=== PATIENT | female | born 2000 | race Caucasian/White ===

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

== ENCOUNTER 2019-01-11 04:50 | Emergency (ER) | payer OTHER ==
[~2019-01-11] VITALS: Ht 167.6 cm; Wt 56.5 kg
[2019-01-11 07:51] LABS: HEMATOCRIT 42.2 % (36.0-47.0); HEMOGLOBIN 14.6 g/dl (12.0-15.5); MEAN CORPUSCULAR HEMOGLOBIN 31.5 pg (27.0-33.0); MEAN CORPUSCULAR HGB CONC 34.6 g/dl (32.0-36.5); MEAN CORPUSCULAR VOLUME 91.1 fl (80.0-96.0); PLATELET COUNT, AUTOMATED 322 10^3/uL (150-450); RED BLOOD COUNT 4.63 10^6/uL (4.00-5.40); WHITE BLOOD COUNT 8.2 10^3/uL (4.0-10.0)
[2019-01-11 08:26] LABS: ACETAMINOPHEN LEVEL < 2.0 UG/ML (10.0-30.0); ALBUMIN 3.7 GM/DL (3.2-5.2); ALT/SGPT 90 U/L (12-78); BILIRUBIN,DIRECT < 0.1 MG/DL (0.0-0.2); BILIRUBIN,TOTAL 0.2 MG/DL (0.2-1.0); BLOOD UREA NITROGEN 7 MG/DL (7-18); CALCIUM LEVEL 8.3 MG/DL (8.5-10.1); CARBON DIOXIDE LEVEL 21 MEQ/L (21-32); CHLORIDE LEVEL 115 MEQ/L (98-107); CREATININE FOR GFR 0.58 MG/DL (0.55-1.30); ETHYL ALCOHOL (ETHANOL) 0.256 % (0.000-0.010); GLUCOSE, FASTING 97 MG/DL (70-100); POTASSIUM SERUM 3.8 MEQ/L (3.5-5.1); SALICYLATE LEVEL < 1.7 MG/DL (5.0-30.0); SODIUM LEVEL 146 MEQ/L (136-145); THYROID STIMULATING HORMONE 0.777 uIU/ML (0.463-3.98)
[2019-01-11] MEDS ORDERED: MULTIVITAMIN -ADULT INJECTION 10 ML, THIAMINE INJection 100 MG, FOLIC ACID 1 MG in NS 1... IV ONE (08:45)
--- NOTE | 2019-01-11 09:51 | REP ---
CT BRAIN WITHOUT CONTRAST: 01/11/2019. Clinical history: Altered mental status. Comparison: 12/09/2010. Findings: The lateral ventricles are midline, symmetric and without dilatation or displacement. Basal ganglia is symmetric and normal. White matter tracts were unremarkable. The salcido-white junction differentiation intact. There is no intra or extra-axial hemorrhage, mass, mass effect or edema. No cortical atrophy. Brainstem and cerebellum unremarkable. Basal cisterns intact. Mastoids and skull base show no acute finding. There are some ethmoid sinuses with mucosal thickening bilaterally. The calvarium was intact. Impression: 1. Some minor ethmoid sinus mucosal thickening, otherwise normal noncontrast CT brain. Electronically Signed by Kolton Castillo MD 01/11/2019 09:41 P
[2019-01-11 12:12] LABS: AMPHETAMINES LEVEL URINE NEGATIVE (NEGATIVE); BARBITURATES URINE NEGATIVE (NEGATIVE); BENZODIAZEPINES URINE NEGATIVE (NEGATIVE); CANNABINOIDS URINE POSITIVE (NEGATIVE); COCAINE METABOLITE URINE NEGATIVE (NEGATIVE); METHADONE URINE NEGATIVE (NEGATIVE); OPIATES URINE NEGATIVE (NEGATIVE); PHENCYCLIDINE URINE NEGATIVE (NEGATIVE)
[2019-01-11 13:25] VITALS: BP 102/64
== END 2019-01-11 13:00 | disposition home or self-care (01) ==
LOC: M ED 04:50
DX: F19.10 Other psychoactive substance abuse, uncomplicated (principal); F10.129 Alcohol abuse with intoxication, unspecified; Z97.5 Presence of (intrauterine) contraceptive device
CPT/HCPCS: 70450; 80048; 80076; 80307; 84443; 84702; 85027; 93041; 96374; 99285; G0480; J3411

== ENCOUNTER 2019-03-01 00:34 | Emergency (ER) | payer OTHER ==
[~2019-03-01] VITALS: Ht 165.1 cm; Wt 54.7 kg
[2019-03-01 01:04] LABS: HEMATOCRIT 44.7 % (36.0-47.0); HEMOGLOBIN 15.5 g/dl (12.0-15.5); MEAN CORPUSCULAR HGB CONC 34.7 g/dl (32.0-36.5); MEAN CORPUSCULAR VOLUME 92.2 fl (80.0-96.0); PLATELET COUNT, AUTOMATED 353 10^3/uL (150-450); RED BLOOD COUNT 4.85 10^6/uL (4.00-5.40); WHITE BLOOD COUNT 11.7 10^3/uL (4.0-10.0)
[2019-03-01] MEDS ORDERED: NS 1,000 ML IV ONE (01:30)
[2019-03-01 01:33] LABS: AMPHETAMINES LEVEL URINE NEGATIVE (NEGATIVE); BARBITURATES URINE NEGATIVE (NEGATIVE); BENZODIAZEPINES URINE NEGATIVE (NEGATIVE); CANNABINOIDS URINE NEGATIVE (NEGATIVE); COCAINE METABOLITE URINE NEGATIVE (NEGATIVE); METHADONE URINE NEGATIVE (NEGATIVE); OPIATES URINE NEGATIVE (NEGATIVE); PHENCYCLIDINE URINE NEGATIVE (NEGATIVE)
[2019-03-01 01:40] LABS: ACETAMINOPHEN LEVEL < 2.0 UG/ML (10.0-30.0); ALBUMIN 4.4 GM/DL (3.2-5.2); ALT/SGPT 78 U/L (12-78); BILIRUBIN,DIRECT 0.1 MG/DL (0.0-0.2); BILIRUBIN,TOTAL 0.4 MG/DL (0.2-1.0); BLOOD UREA NITROGEN 11 MG/DL (7-18); CALCIUM LEVEL 9.4 MG/DL (8.5-10.1); CARBON DIOXIDE LEVEL 20 MEQ/L (21-32); CHLORIDE LEVEL 111 MEQ/L (98-107); CREATININE FOR GFR 0.66 MG/DL (0.55-1.30); ETHYL ALCOHOL (ETHANOL) 0.122 % (0.000-0.010); GLUCOSE, FASTING 87 MG/DL (70-100); POTASSIUM SERUM 4.2 MEQ/L (3.5-5.1); SALICYLATE LEVEL < 1.7 MG/DL (5.0-30.0); SODIUM LEVEL 142 MEQ/L (136-145)
[2019-03-01] MEDS ORDERED: NICOTINE 21MG/24HR 1 EA TRANSDERMAL TD ONE (13:15)
[2019-03-01 15:58] VITALS: BP 155/84
--- NOTE | 2019-03-02 08:08 | ECGEPIP ---
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
== END 2019-03-01 15:59 ==
LOC: M ED 00:34
DX: T14.91XA Suicide attempt, initial encounter (principal); Y92.89 Other specified places as the place of occurrence of the external cause; F32.9 Major depressive disorder, single episode, unspecified; Z91.5 Personal history of self-harm; F17.210 Nicotine dependence, cigarettes, uncomplicated; Z97.5 Presence of (intrauterine) contraceptive device
CPT/HCPCS: 80048; 80076; 80307; 84443; 84702; 85027; 93005; 96360; 99285; G0480

== ENCOUNTER → 2019-05-19 | Outpatient (REF) | payer OTHER ==
[2019-05-19 20:19] LABS: CHLAMYDIA DNA AMPLIFICATION NEGATIVE (NEGATIVE); GC DNA AMPLIFICATION NEGATIVE (NEGATIVE)
== END ==
LOC: M SFHCWAGY 16:38
PROVIDERS: ATTEND Advanced Practice Midwife
DX: Z76.89 Persons encountering health services in other specified circumstances (principal)

== ENCOUNTER 2020-02-01 12:23 | Inpatient (IN) | payer OTHER ==
[~2020-02-01] VITALS: Ht 165.1 cm; Wt 59.1 kg
[2020-02-01] MEDS ORDERED: XULA1DIS TD (13:11)
[2020-02-01 13:26] LABS: BASO % 0.2 % (0.0-1.0); EOS # 0.1 10^3/uL (0.0-0.5); EOS % 0.3 % (0.0-3.0); HEMATOCRIT 41.4 % (36.0-47.0); HEMOGLOBIN 14.2 g/dl (12.0-15.5); LYMPH # 2.3 10^3/uL (1.5-5.0); LYMPH % 9.9 % (24.0-44.0); MEAN CORPUSCULAR HEMOGLOBIN 31.1 pg (27.0-33.0); MEAN CORPUSCULAR HGB CONC 34.3 g/dl (32.0-36.5); MEAN CORPUSCULAR VOLUME 90.8 fl (80.0-96.0); MONO # 1.6 10^3/uL (0.0-0.8); MONO % 6.6 % (0.0-5.0); NEUTROPHILS # 19.5 10^3/uL (1.5-8.5); NEUTROPHILS % 82.4 % (36.0-66.0); PLATELET COUNT, AUTOMATED 493 10^3/uL (150-450); RED BLOOD COUNT 4.56 10^6/uL (4.00-5.40); WHITE BLOOD COUNT 23.6 10^3/uL (4.0-10.0)
[2020-02-01 13:44] LABS: ALBUMIN 4.3 GM/DL (3.2-5.2); ALT/SGPT 26 U/L (12-78); BILIRUBIN,DIRECT 0.1 MG/DL (0.0-0.2); BILIRUBIN,TOTAL 0.4 MG/DL (0.2-1.0); LIPASE 70 U/L (73-393); TOTAL PROTEIN 8.6 GM/DL (6.4-8.2)
[2020-02-01] MEDS ORDERED: NS 1,000 ML IV ONE (13:45)
[2020-02-01] MEDS ORDERED: MORPHINE 4 MG/ML 1ML VIAL/SYRINGE (J2270) IV ONE (13:45)
[2020-02-01] MEDS ORDERED: ONDANSETRON 4MG/2ML VIAL IV ONE (13:45)
[2020-02-01] MEDS ORDERED: ISOVUE-370 76% 100ML VIAL As Ordered ONE (13:47)
--- NOTE | 2020-02-01 14:39 | REPVR ---
PROCEDURE INFORMATION: Exam: CT Abdomen And Pelvis With Contrast Exam date and time: 02/01/2020 1:50 PM Age: 19 years old Clinical indication: Abdominal pain; Other: Diffuse abd pain, bloody diarrhea TECHNIQUE: Imaging protocol: Computed tomography of the abdomen and pelvis with intravenous contrast. Radiation optimization: All CT scans at this facility use at least one of these dose optimization techniques: automated exposure control; mA and/or kV adjustment per patient size (includes targeted exams where dose is matched to clinical indication); or iterative reconstruction. Contrast material: ISOVUE 370; Contrast volume: 100 ml; Contrast route: INTRAVENOUS (IV); COMPARISON: CT ABD/PEL W/IV CONTRAST ONLY 10/26/2018 5:05 PM FINDINGS: Liver: 4.2 mm nonspecific hepatic segment 8 hypodensity, new. Gallbladder and bile ducts: Normal. No calcified stones. No ductal dilation. Pancreas: Normal. No ductal dilation. Spleen: Normal. No splenomegaly. Adrenals: Normal. No mass. Kidneys and ureters: Normal. No hydronephrosis. Stomach and bowel: Ileocolic intussusception measuring approximately 7.6 cm length (series 202, image 33). Possible pedunculated polyp (series 12 mm) lead point (series 201, images 91-101). Contracted descending and transverse colon limiting assessment for wall thickening. Mild nonspecific rectal increased fluid. Appendix: No evidence of appendicitis. Intraperitoneal space: Nonspecific mild posterior pelvic peritoneal fluid. Vasculature: Calcified phleboliths are present in the lower pelvis bilaterally. Lymph nodes: No enlarged lymph nodes. Bladder: The urinary bladder is decompressed and difficult to assess. Reproductive: Left ovarian 17.8 mm marginally enhancing physiologic follicle. Bones/joints: Angular kyphosis of the sacrococcygeal junction consistent with remote injury. Soft tissues: Unremarkable. IMPRESSION: 1. Ileocolic intussusception , possible polypoid lead point. 2. Nonspecific small hepatic hypodensity, new. Follow-up may be helpful. 3. Nonspecific mild posterior pelvic peritoneal fluid. THIS REPORT CONTAINS FINDINGS THAT MAY BE CRITICAL TO PATIENT CARE. The findings were verbally communicated by me to BENITO GATES, via telephone conference at 2:34 PM EDT on 02/01/2020. The findings were acknowledged and understood. Electronically signed by: Jozef Patrick On 02/01/2020 14:38:52 PM
--- NOTE | 2020-02-01 14:41 | REPVR ---
PROCEDURE INFORMATION: Exam: XR Chest, 2 Views Exam date and time: 02/01/2020 2:12 PM Age: 19 years old Clinical indication: Other: Blood in stool, abdominal pain; Additional info: Abdominal pain TECHNIQUE: Imaging protocol: XR of the chest Views: Frontal and lateral upright views. COMPARISON: CR Ribs uni W-PA CHEST ONLY 07/03/2017 12:46 PM FINDINGS: Lungs: The lungs are clear bilaterally. The pulmonary vasculature is normal. Pleural space: No pleural effusion. No pneumothorax. Heart/Mediastinum: The heart is normal in size and contour. Bones/joints: No acute chest wall abnormality identified. IMPRESSION: No acute cardiopulmonary abnormality identified. Electronically signed by: Jozef Patrick On 02/01/2020 14:41:36 PM
[2020-02-01 14:59] LABS: CK-MB VALUE MASS < 1.0 NG/ML (<3.6); CPK CREATINE PHOSPHOKINASE 88 U/L (26-192); MB/CK RELATIVE INDEX 1.14 (< OR =4); TROPONIN I < 0.02 NG/ML (< 0.10)
[2020-02-01] MEDS ORDERED: BUPIVACAINE HCL 0.25% 30ML VIAL As Ordered ONE (16:11)
[2020-02-01] MEDS ORDERED: PIPERACILLIN/TAZOBACTAM SOD 3.375 GM in D5W MINI-BAG PLUS 50 ML IV STA (16:14)
[2020-02-01 16:32] LABS: AMPHETAMINES LEVEL URINE NEGATIVE (NEGATIVE); BARBITURATES URINE NEGATIVE (NEGATIVE); BENZODIAZEPINES URINE NEGATIVE (NEGATIVE); CANNABINOIDS URINE POSITIVE (NEGATIVE); COCAINE METABOLITE URINE NEGATIVE (NEGATIVE); METHADONE URINE NEGATIVE (NEGATIVE); OPIATES URINE NEGATIVE (NEGATIVE); PHENCYCLIDINE URINE NEGATIVE (NEGATIVE)
[2020-02-01] MEDS ORDERED: dexameTHASONE 4 MG/ML 1ML VIAL (J1100 PER 1MG) As Ordered ONE (17:13)
[2020-02-01] MEDS ORDERED: fentaNYL 250 MCG/5 ML INJECTION (J3010) As Ordered ONE (17:13)
[2020-02-01] MEDS ORDERED: MIDAZOLAM INJ 2MG/2ML VIAL (J2250 PER 1MG) As Ordered ONE (17:13)
[2020-02-01] MEDS ORDERED: ONDANSETRON 4MG/2ML VIAL As Ordered ONE (17:13)
[2020-02-01] MEDS ORDERED: SUGAMMADEX SODIUM 500 MG/5 ML VIAL (BRIDION) As Ordered ONE (17:14)
[2020-02-01] MEDS ORDERED: ePHEDrine SULFATE 25 MG/5 ML(5MG/ML) SYRINGE As Ordered ONE (17:14)
[2020-02-01] MEDS ORDERED: PHENYLephrine HCL 500 MCG/5 ML (100MCG/ML) SYRINGE (J2370) As Ordered ONE (17:14)
[2020-02-01] MEDS ORDERED: LIDOCAINE 2% 100MG/5ML SDV (FOR ANES.) As Ordered ONE (17:14)
[2020-02-01] MEDS ORDERED: propofoL 200 MG/20 ML VIAL As Ordered ONE (17:14)
[2020-02-01] MEDS ORDERED: ROCURONIUM BROMIDE 50 MG/5 ML VIAL As Ordered ONE ×2 (17:14→18:52)
[2020-02-01] MEDS ORDERED: ACETAMINOPHEN 1000MG 100ML IV BTL (OFIRMEV) (J0131 PER 10MG) As Ordered ONE (18:06)
[2020-02-01] MEDS ORDERED: HYDROmorphone HCL 2 MG/ML 1ML VIAL (J1170) As Ordered ONE (19:05)
[2020-02-01] MEDS ORDERED: KETOROLAC 60MG 2ML VIAL As Ordered ONE (20:52)
[2020-02-01] MEDS ORDERED: LR 1,000 ML IV SCH (21:30)
[2020-02-01] MEDS ORDERED: MEPERIDINE INJ 25 MG/ML VIAL (J2175) IV PRN (21:30)
[2020-02-01] MEDS ORDERED: oxyCODONE 5MG TAB PO PRN (21:30)
[2020-02-01] MEDS ORDERED: ONDANSETRON 4MG/2ML VIAL IV PRN ×2 (21:30)
[2020-02-01] MEDS ORDERED: METOCLOPRAMIDE INJ 10MG/2ML VIAL (J2765 PER 1) IV PRN (21:30)
[2020-02-01] MEDS ORDERED: ACETAMINOPHEN TAB 650MG DOSE (2X325MG) PO PRN (21:30)
[2020-02-01] MEDS ORDERED: fentaNYL 100 MCG/2 ML INJECTION (J3010) As Ordered ONE (21:32)
[2020-02-01] MEDS: fentaNYL 100 MCG/2 ML INJECTION (J3010) IV PRN ×2 (21:35→21:40)
[2020-02-01 22:40] VITALS: BP 130/72
[2020-02-01] MEDS: LR 1,000 ML IV SCH (22:40)
[2020-02-01 23:10] VITALS: BP 128/71
[2020-02-01] MEDS: MORPHINE 2 MG/ML 1ML VIAL (J2270) IV PRN (23:24)
[2020-02-01 23:40] VITALS: BP 112/67
[2020-02-01] MEDS: PIPERACILLIN/TAZOBACTAM SOD 3.375 GM in D5W MINI-BAG PLUS 50 ML IV SCH (23:50)
[2020-02-02] VITALS (8 sets, daily range): BP systolic 104–133; BP diastolic 57–88
[2020-02-02] MEDS: oxyCODONE 5MG TAB PO PRN ×5 (00:40→22:13)
[2020-02-02] MEDS: LR 1,000 ML IV SCH ×2 (03:40→19:00)
[2020-02-02] MEDS: PIPERACILLIN/TAZOBACTAM SOD 3.375 GM in D5W MINI-BAG PLUS 50 ML IV SCH ×2 (04:39→10:35)
[2020-02-02] MEDS: KETOROLAC 30 MG/ML 1ML VIAL IV PRN ×3 (06:16→21:40)
[2020-02-02] MEDS: MORPHINE 2 MG/ML 1ML VIAL (J2270) IV PRN ×4 (07:17→20:07)
[2020-02-02 09:50] LABS: BASO % 0.1 % (0.0-1.0); HEMATOCRIT 34.6 % (36.0-47.0); LYMPH # 1.8 10^3/uL (1.5-5.0); LYMPH % 9.7 % (24.0-44.0); MEAN CORPUSCULAR HEMOGLOBIN 31.3 pg (27.0-33.0); MEAN CORPUSCULAR HGB CONC 33.8 g/dl (32.0-36.5); MEAN CORPUSCULAR VOLUME 92.5 fl (80.0-96.0); MONO # 1.8 10^3/uL (0.0-0.8); MONO % 9.4 % (0.0-5.0); NEUTROPHILS # 15.3 10^3/uL (1.5-8.5); NEUTROPHILS % 80.4 % (36.0-66.0); RED BLOOD COUNT 3.74 10^6/uL (4.00-5.40); WHITE BLOOD COUNT 19.1 10^3/uL (4.0-10.0)
[2020-02-02 09:59] LABS: BLOOD UREA NITROGEN 7 MG/DL (7-18); CALCIUM LEVEL 8.4 MG/DL (8.5-10.1); CARBON DIOXIDE LEVEL 24 MEQ/L (21-32); CHLORIDE LEVEL 108 MEQ/L (98-107); CREATININE FOR GFR 0.65 MG/DL (0.55-1.30); GLUCOSE, FASTING 111 MG/DL (70-100); POTASSIUM SERUM 3.8 MEQ/L (3.5-5.1); SODIUM LEVEL 138 MEQ/L (136-145)
[2020-02-02 10:02] LABS: HEMOGLOBIN 11.7 g/dl (12.0-15.5); PLATELET COUNT, AUTOMATED 345 10^3/uL (150-450)
[2020-02-03] VITALS: BP 134/70
[2020-02-03] MEDS: MORPHINE 2 MG/ML 1ML VIAL (J2270) IV PRN ×6 (00:21→21:00)
[2020-02-03 04:00] VITALS: BP 135/79
[2020-02-03] MEDS: KETOROLAC 30 MG/ML 1ML VIAL IV PRN (04:37)
[2020-02-03 08:00] VITALS: BP 135/72
--- NOTE | 2020-02-03 10:55 | IPN ---
DATE: 02/02/2020 HISTORY: The patient is postop day #1 from a robotic assisted laparoscopic ileocolonic resection for an ileocolonic intussusception. She complains of some abdominal pain but denies any nausea or vomiting. She is taking some clear liquids. PHYSICAL EXAMINATION: VITAL SIGNS: Vital signs show that she has been afebrile since surgery. Pulse is in the 60s generally and her blood pressure is good. Room air oxygen saturation is normal. HEART: Regular rate and rhythm. LUNGS: Clear. ABDOMEN: Generally flat. She does have bowel sounds present. Her incisions are dressed and the dressings are clean and dry. LABORATORY STUDIES: Today white count of 19,000, hemoglobin of 12, hematocrit 35 and a platelet count of 345,000. Differential showed 80% neutrophils, 10% lymphocytes and 9% monocytes. Chemistry profile shows normal electrolytes with the exception of a minimal elevation of a chloride to 108. BUN and creatinine are normal and the glucose is 111. IMPRESSION: The patient is doing very well postop day #1 from her ileocolonic resection for an intussusception. I found an area of hemorrhage in the wall of the colon in one of the sacculations of the cecum, and I thought there might be a small nodule in the wall at that point, possibly a lipoma, but it may all have been just swelling and hemorrhage. PLAN: The patient will remain on clear liquids today. I encouraged her to be up out of bed and to do some breathing exercises. SUMMER
[2020-02-03] MEDS: IBUPROFEN 600MG TAB PO PRN ×2 (11:59→20:07)
[2020-02-03] MEDS: oxyCODONE 5MG TAB PO PRN ×2 (15:52→22:57)
[2020-02-03 16:00] VITALS: BP 128/60
[2020-02-03 20:00] VITALS: BP 118/70
[2020-02-04] VITALS: BP 104/57
[2020-02-04] MEDS: oxyCODONE 5MG TAB PO PRN ×2 (03:45→13:07)
[2020-02-04 04:00] VITALS: BP 116/74
[2020-02-04] MEDS: IBUPROFEN 600MG TAB PO PRN ×2 (06:52→15:23)
[2020-02-04 06:58] LABS: BASO % 0.2 % (0.0-1.0); EOS # 0.1 10^3/uL (0.0-0.5); EOS % 1.6 % (0.0-3.0); HEMATOCRIT 36.4 % (36.0-47.0); LYMPH # 2.2 10^3/uL (1.5-5.0); LYMPH % 26.8 % (24.0-44.0); MEAN CORPUSCULAR HEMOGLOBIN 30.9 pg (27.0-33.0); MEAN CORPUSCULAR VOLUME 93.8 fl (80.0-96.0); MONO # 0.9 10^3/uL (0.0-0.8); MONO % 10.4 % (0.0-5.0); NEUTROPHILS % 60.6 % (36.0-66.0); PLATELET COUNT, AUTOMATED 327 10^3/uL (150-450); RED BLOOD COUNT 3.88 10^6/uL (4.00-5.40); WHITE BLOOD COUNT 8.2 10^3/uL (4.0-10.0)
[2020-02-04 07:36] LABS: ALBUMIN 3.2 GM/DL (3.2-5.2); ALT/SGPT 19 U/L (12-78); BILIRUBIN,TOTAL 0.4 MG/DL (0.2-1.0); BLOOD UREA NITROGEN 7 MG/DL (7-18); CALCIUM LEVEL 8.9 MG/DL (8.5-10.1); CARBON DIOXIDE LEVEL 24 MEQ/L (21-32); CHLORIDE LEVEL 109 MEQ/L (98-107); CREATININE FOR GFR 0.62 MG/DL (0.55-1.30); GLUCOSE, FASTING 78 MG/DL (70-100); POTASSIUM SERUM 3.9 MEQ/L (3.5-5.1); SODIUM LEVEL 139 MEQ/L (136-145); TOTAL PROTEIN 6.8 GM/DL (6.4-8.2)
[2020-02-04 09:00] VITALS: BP 118/62
[2020-02-04 12:30] VITALS: BP 112/56
--- NOTE | 2020-02-08 08:14 | IPN ---
DATE: 02/03/2020 HISTORY: Patient is now postop day #2 from a robotic-assisted laparoscopic ileocolic resection for an intussusception. Vital signs: Patient has remained afebrile over the past 24 hours. Her pulse is in the 50s and 60s generally. Her blood pressure is good. Intake and output show that yesterday she had 2,900 in with 4,500 out. She has had several bowel movements today. PHYSICAL EXAMINATION: Patient is alert and appears quite comfortable. She is breathing easily. Heart and lung exams are unremarkable. The abdomen is flat. She has active bowel sounds. Her dressings are clean and dry. LABORATORY STUDIES: Patient has no new labs today. IMPRESSION: Patient is doing well. She is tolerating clear liquids without any difficulty. She has been up ambulating and is voiding briskly. She has had bowel movements. PLAN: Patient will be advanced to a regular diet. She is encouraged to be up ambulating. She will be allowed to take a shower. Her I.V. will be saline locked. I would anticipate she would be ready for discharge in the next 1-2 days. SUMMER
--- NOTE | 2020-02-08 08:18 | IPN ---
DATE: 02/04/2020 HISTORY: Patient is now postop day #3 from a robotic-assisted laparoscopic ileocolic resection for intussusception. She has tolerated a regular diet. She has been ambulating and reports that she is having less pain. She is clearly using less medications. Vital signs show that she has been afebrile over the past 24 hours. Her pulse is in the 50s to low 70s and her blood pressure is normal. Intake and output show that yesterday she had 2,900 in with 3,800 out. PHYSICAL EXAMINATION: Patient is lying quietly in the bed, looking quite comfortable. Heart exam shows a regular rhythm. The lungs are clear. Examination of the abdomen shows that her incisions are open to the air and are all clean and healing well with Steri-Strips in place. She has active bowel sounds. LABORATORY STUDIES TODAY: White count 8,000 with a differential count showing 61% neutrophils, 27% lymphocytes and 10% monocytes. Hemoglobin 12 with hematocrit 36, platelet count normal at 327,000. Chemistry profile shows normal electrolytes with the exception of a minimal elevation of her chloride to 109, BUN 7 with creatinine 0.6 and glucose 78. The remainder of her liver function tests are normal. IMPRESSION: Patient is doing very well now three days postop from her ileocolic resection. Her pathology is pending at this time. She appears ready for discharge. PLAN: Patient was counseled to take a diet as tolerated. She can shower adlib, but is encouraged to leave the Steri-Strips in place. She will use Tylenol or Ibuprofen as needed for pain. I will phone in a prescription for a small number of pain pills that she can use as needed. She was counseled to avoid any strenuous physical activity for the next month or so. She should follow-up in my office in 10 to 14 days. She should call for any problems. SUMMER
--- NOTE | 2020-02-09 10:10 | ECGEPIP ---
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
--- NOTE | 2020-02-19 17:09 | RO ---
DATE OF OPERATION: 02/01/2020 PREOPERATIVE DIAGNOSIS: Ileocolonic intussusception. POSTOPERATIVE DIAGNOSIS: Ileocolonic intussusception. PROCEDURE: Robotic-assisted laparoscopic reduction of intussusception with ileocolonic resection. The resection involved the distal most segment of the terminal ileum with the cecum and proximal ascending colon. An ileocolonic anastomosis was performed. SURGEON: Janak Waldron MD ANESTHESIA: General. INDICATIONS FOR THE PROCEDURE: The patient is a 19-year-old woman who presented to the emergency department with a several-hour history of severe right-sided abdominal pain. This was actually more diffusely tender and became more localized to the right. She noted passage of some bloody diarrhea. In the emergency department, she underwent testing that showed a marked elevation of her white blood cell count. A CT scan of the abdomen and pelvis revealed an intussusception of the terminal ileum into the cecum and ascending colon. I was consulted and the patient is now for surgical intervention. OPERATIVE PROCEDURE: The patient was brought to the operating room and placed on the table in the supine position. She had a nasogastric tube in place. She was placed under general endotracheal anesthesia. A Metz catheter was inserted. The patient's abdomen was prepped and draped in a sterile fashion. 0.25% Marcaine was infiltrated at each of the trocar sites as needed. A high left upper quadrant infracostal incision was made and a Veress needle was inserted. After a positive hanging drop test, the abdomen was inflated with carbon dioxide gas. After insufflating the abdomen, an 8 mm robotic port was placed over a 5 mm scope and advanced to the abdominal wall without difficulty. Initial examination showed a normal-appearing liver and gallbladder. Visualized portions of the small and large bowel were normal. The area of the ileocecal valve was initially obscured by other loops of bowel. A second 8 mm port was placed approximately 8 mm inferior and slightly medial to the first. A 12 mm port was placed 8 mm lower and just along the midline inferior to the umbilicus. A third 8 mm port was placed in the right lower quadrant. The patient was tilted to a slight Trendelenburg position and rolled slightly to the left. The [email or web address] patient cart was brought into position and the endoscope port, which was the left upper quadrant more inferior 8 mm port, was docked. Targeting took place on the area of the ascending colon and the additional robotic arms were docked to the appropriate ports. A cauterizing scissor was placed in the left upper quadrant. A bipolar cautery was placed in the infraumbilical site and a grasping retractor was placed in the right lower quadrant. I then moved to the control console to proceed with the operation. Initially, I identified the terminal ileum and traced this to the area of the cecum. There was clearly a segment of the terminal ileum that was intussuscepted slightly into the cecum and ascending colon. As this was withdrawn, it was clear that the small bowel was viable and not particularly inflamed. As the cecum was everted, a single point approximately on the anterior surface was noted to be quite purple and bruised in appearance. This amounted to an inverted sacculation of the cecum and this was the area that was found to be most inflamed and bruised in appearance suggesting this as the lead point for her intussusception. The distal small bowel otherwise looked normal. Likewise, the distal ascending and transverse colon appeared normal as well. I elected to proceed with resection of the ileocecal valve region with the cecum and proximal ascending colon. Some lateral attachments of the terminal ileum were divided using the cauterizing scissors. The lateral attachments of the cecum and ascending colon were then divided. The tissues were placed on tension and the scissors were used to mobilize all these attachments and rotate the colon medially. The dissection was carried up to the level of the hepatic flexure. The terminal ileum was transected just proximal to the ileocecal valve using a robotic 45 mm stapler with a green load. The mesentery was partially divided. I then changed to a vessel sealer for much of the rest of the dissection. The remainder of the mesentery of the terminal ileum was divided down toward the base. I then proceeded with some additional mobilization of the proximal transverse colon and the hepatic flexure. I carried the dissection across the superior aspect of the hepatic flexure, dividing the peritoneum and fibrofatty tissues in this area allowing me to displace the hepatic flexure inferiorly significantly. This was then freed laterally and this provided excellent mobility. The retroperitoneal duodenum was identified and protected. The vessels of the middle colic artery were preserved. The area of the proximal ascending colon was then mobilized by dividing the ileocolic vessel with the vessel sealer and dissection proceeded up to the wall of the colon to divide the surrounding pericolic fatty tissue. There were some small lymph nodes identified in this area. Once the wall of the colon had been adequately identified, the colon was divided with three loads of the 45 mm stapler with a green load. The specimen was set aside. The wound was inspected and there was no evidence of significant bleeding. I elected to proceed with some further dissection to completely free the ascending colon so that this could be mobilized to the midline for the anastomosis. The terminal ileum was already highly mobile. Prior to undocking the robot, the right upper quadrant was irrigated with a suction orientor and a few small bleeding points along the retroperitoneum were identified and controlled with the cautery. I elected to use the Firefly feature of the robot to assess the vascularity of the terminal ileum and ascending colon. After injection of the ICG, the area was viewed using the Firefly and there was excellent coloration indicating good vascularity. At this point, the robot was undocked after removing the robotic instruments. I returned to the patient's bedside and using hand laparoscopic instruments the end of the terminal ileum, the end of the ascending colon and the specimen were grasped through the remaining ports. The abdomen was then deflated. The 12 mm port in the infraumbilical site was removed and then approximately a 4-5 cm incision was made centered on this point. The incision was deepened through the subcutaneous tissues and fascia. The incision was just to the left of the midline exposing the left rectus muscle somewhat. A small Ralf retractor was placed. The specimen was grasped and removed, and set aside for later inspection. This amounted to approximately a 10 cm segment of the cecum and ascending colon with the attached stub of the terminal ileum. The end of the terminal ileum and the ascending colon were then also delivered through the retractor. At this point, the remaining robotic trocars were removed. A stapled anastomosis was performed using a linear cutter 55 stapler and completed with a TX60G stapler. Several reinforcing sutures of 3-0 Vicryl were placed. The anastomosis was washed with saline and then reduced into the abdomen. The surgical team then changed gown and glove. I opened the specimen off the field. Inspection of the area of hemorrhage noted in the wall of the cecum showed some thickening in this area with obvious mucosal hemorrhage. There was a suspicion of a small submucosal mass, such as a lipoma, but it may be that this all just represented some edema and hemorrhage. There were no other identified masses or polyps. The specimen was sent for permanent pathology. The peritoneum at the infraumbilical site was closed with a running suture of 0 Vicryl. The fascia was approximated with a running suture of #1 Vicryl on the posterior fascia and a second running #1 Vicryl anteriorly. The skin incisions were all closed with buried sutures of 4-0 Vicryl and Steri-Strips. Light dressings were applied. The patient tolerated the procedure well without apparent complication. She was awakened after removal of her NG tube and Metz catheter. She was extubated and moved to the recovery room in stable condition. SUMMER
== END 2020-02-04 18:24 | disposition home or self-care (01) | DRG 221 ==
LOC: M ED 12:23 → M ED INP 16:14 → M PED 22:40
PROVIDERS: ADMIT Surgery; ATTEND Surgery
PROC: 0DBB4ZZ Excision of Ileum, Percutaneous Endoscopic Approach (ICD-10-PCS; 2020-02-01)
PROC: 0DBK4ZZ Excision of Ascending Colon, Percutaneous Endoscopic Approach (ICD-10-PCS; 2020-02-01)
PROC: 8E0W4CZ Robotic Assisted Procedure of Trunk Region, Percutaneous Endoscopic Approach (ICD-10-PCS; 2020-02-01)
PROC: 0DBH4ZZ Excision of Cecum, Percutaneous Endoscopic Approach (ICD-10-PCS; principal; 2020-02-01 15:35)
DX: K56.1 Intussusception (principal)

== ENCOUNTER → 2020-06-04 | Outpatient (REF) | payer OTHER ==
[~2020-06-04] MED LIST changes: +XULA1DIS TD
[2020-06-04 18:08] LABS: INFLUENZA A AMPLIFICATION NEGATIVE (NEGATIVE); INFLUENZA B AMPLIFICATION NEGATIVE (NEGATIVE)
== END ==
LOC: M LAB REF 16:19
PROVIDERS: ATTEND Physician Assistant
DX: M79.7 Fibromyalgia (principal)

== ENCOUNTER 2020-07-21 22:12 | Inpatient (IN) | payer OTHER ==
[~2020-07-21] VITALS: Ht 160 cm; Wt 56.8 kg
--- OUTSIDE RECORDS SUMMARY | 2020-07-21 22:18 | CCD | Continuity of Care Document ---
Author [facility] [place] Organization [facility] Address Unknown Phone Unavailable Care Team Providers Care Finisher Accordion Name Role Phone Jigna Phillips MD Unavailable Unavailable Allergies, Adverse Reactions, Alerts Substance Reaction Status Criticality Penicillins Nausea/Vomit ing Active No Information Medications Medication Instructions Dosage Effective Dates (start - stop) Sta tus Comments Xulane 150 mcg-35 mcg/24 hr transdermal patch Xulane 1 patch per week x 3 weeks then remove x 1 week - Active Problems Condition Effective Dates (start - stop) Clinical Status C omments Encntr screen for infections w sexl mode of transmiss Human immunodeficiency virus [HIV] counseling Encounter for test, result negative 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 Enctr for init prescription of patch hormonal contracep dev Encounter for oth general cnsl and advice on contraception Other sex counseling Other sex counseling Encounter for oth general cnsl and advice on contraception Encounter for removal of intrauterine contraceptive device Enctr srvlnc transdermal patch hormonal contraceptive device Other sex counseling Encounter for oth general cnsl and advice on contraception Encntr screen for infections w sexl mode of transmiss High risk heterosexual behavior Enctr for init prescription of patch hormonal contracep dev Encounter for test, result negative Human immunodeficiency virus [HIV] counseling Pruritus vulvae Unspecified contact dermatitis, unspecified cause Encounter for oth general cnsl and advice on contraception Human immunodeficiency virus [HIV] counseling Encounter for oth general cnsl and advice on contraception Encounter for routine checking of intrauterine contracep dev 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 Encounter for test, result negative Encounter for oth general cnsl and advice on contraception Encounter for routine checking of intrauterine contracep dev Encounter for insertion of intrauterine contraceptive device High risk heterosexual behavior Encounter for test, result negative Encntr screen for infections w sexl mode of transmiss High risk heterosexual behavior Encounter for oth general cnsl and advice on contraception HIV Counseling PT, Negative BV Family Planning Counseling Bacterial vaginosis - Active Procedures Procedure Date No Information Results Test Name Date and Time Measure Units Reference Range Abnormal Flag St atus Comments No Information Advance Directives Directive Yes / No Effective Date File Name No Information Encounters Encounter Description Practice Location Reason(s) For Visit Diagnose s Date Provider Providers Copied on Encounter [facility], [address] [place] [address], [id number], tel:[phone] PPOHSkyhood Woody No Information W manuel Benito. [address] [place] [address], [id number], . 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 [address] [place] [address], [id number], [place]. tel:[phone] Referring Provider: Noris Milian, [address], [place], [id number]. tel:[phone] [facility], [address] [place] [address], [id number], [place] tel:[phone] [facility] Other sex counselin gEncounter for oth general cnsl and advice on contraceptionEncounter for removal of intrauterine contraceptive deviceEnctr srvlnc transdermal patch hormonal contraceptive device Rukhsana Hamm. [address] [place] [address], [id number], . tel:[phone] Referring Provider: Noris Milian, [address], [place], [id number]. tel:[phone] [facility], [address] [place] [address], [id number], [place] tel:[phone] PPNCNY Woody Other sex counselin gEncounter for oth general cnsl and advice on contraceptionEncntr screen for infections w sexl mode of transmissHigh risk heterosexual behaviorEnctr for init prescription of patch hormonal contracep devEncounter for test, result negativeHuman immunodeficiency virus [HIV] counseling Rukhsana Hamm. [address] [place] [address], [id number], [place]. tel:[phone] Referring Provider: Noris Milian, [address] [place] [address], [id number]. tel:[phone] [facility], [address] [place] [address], [id number], [place] tel:[phone] PPBANDARNY Woody Pruritus vulvaeUnsp ecified contact dermatitis, unspecified causeEncounter for oth general cnsl and advice on contraception King Judith. [address], [place], [id number]. tel:[phone] Referring Provider: Judith Bassett, [address] [place], [place], [id number]. 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 [address] [place] [address], [id number]. tel:[phone] Referring Provider: Judith Bassett, [address] [place], [place], [id number]. tel:[phone] [facility], [address] [place] [address], [id number], tel:[phone] PPOHNY Woody Encounter for pregn evelina test, result negativeEncounter for oth general cnsl and advice on contraceptionEncounter for routine checking of intrauterine contracep devEncounter for insertion of intrauterine contraceptive deviceHigh risk heterosexual behavior Dave Rocha. [address] [place] [address], [id number], [place]. tel:[phone] Referring Provider: Josefina Dallas, [address] [place] [address], [id number]. tel:[phone] [facility], [address] [place] [address], [address] [place] [address], tel:[phone] [facility] Encounter for pregn evelina test, result negativeEncntr screen for infections w sexl mode of transmissHigh risk heterosexual behaviorEncounter for oth general cnsl and advice on contraception Zena Doran. [address] [place] [address], [id number], [place]. tel:[phone] Referring Provider: Andreea Freitas, [address] [place] [address], [id number]. tel:[phone] [facility], [address] [place] [address], [id number], [place] tel:[phone] [facility] HIV CounselingPT, N egativeBVFamily Planning Counseling Dave Rocha. [address] [place] [address], [id number], . tel:[phone] Family History Family Member Diagnosis Age At Onset Sister No history of Stroke Mother No history of Stroke 1st degree relative No hx of coronary heart disease (female <65, male <55) 1st degree relative No hx of osteoporosis Father No history of Stroke Family history of Hypertension Family history of High cholesterol Family history of Mental illness Brother No history of Myocardial infarction Family history of Depression Father No history of Myocardial infarction Family history of Diabetes mellitus 1st degree relative No hx of venous thromboembolism Sister No history of Myocardial infarction Mother No history of Myocardial infarction 1st degree relative No hx of cancer of breast, colon, endome trium or ovary Brother No history of Stroke Immunizations Vaccine Date Status Comments Varicella administered Note: dates unkn own ; Source: Source Unspecified Tdap administered Note: dates unkn own ; Source: Source Unspecified MMR administered Note: dates unkn own ; Source: Source Unspecified HPV administered Note: dates unkn own ; Source: Source Unspecified Hep A (ped/adol, 2 dose) administered Note: d ates unknown ; Source: Source Unspecified Payers Payer name Insurance type Covered alliance party ID Authorization(s ) [facility] CI [id number] Social History Type Description Quantity Date Captured Comments Alcohol Use Details Unknown Caffeine Use Details Unknown Tobacco Use Status Smoking Status Light tobacco smoker Sex Female Vital Signs Date / Time: Height Weight BMI Pulse Rate Blood Pressure Temperatu re Respiratory Rate Body Surface Area Head Circumference BMI percentile Pulse Ox In haled Ox No Information Chief Complaint And Reason For Visit No Information Reason For Referral Reason For Referral No Information Plan Of Treatment Date Type Action Status Goal Tobacco cessation counseling com pleted Goal Tobacco cessation counseling com pleted Goal Tobacco cessation counseling com pleted Appointment Sally Mckeon BOOKED History Of Present Illness Encounter Date Complaint History Of Present I llness No Information Functional Status Date Functional Assessment No Information Medications Administered Medication Instructions Dosage Effective Dates (start - stop) Sta tus Comments No Information Instructions Date Instruction Additional Informati on No Information Assessments Type Assessment Date No Information Goals Health Concern Goal Type Priority Status Date No Information Medical Equipment Description Device [place] Device Identifier Effective Leoncio es (start - stop) Status No Information Mental Status Date Cognitive Assessment No Information Health Concerns Observation Date No Information Concern Status Date No Information Physical Examination Exam Findings Details No Information
--- OUTSIDE RECORDS SUMMARY | 2020-07-21 22:18 | CCD | Continuity of Care Document ---
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 [address] [place] [address], [id number], . tel:[phone] [facility], [address] [place] [address], [id number], tel:[phone] [facility] Encntr screen for i nfections w sexl mode of transmissHuman immunodeficiency virus [HIV] counselingEncounter for test, result negativeEncntr for continuing education specialist exam (general) (routine) w/o abn findingsEnctr for init prescription of patch hormonal contracep devEncounter for oth general cnsl and advice on contraceptionOther sex counseling Rukhsana Hamm. [address] [place] [address], [id number], . tel:[phone] Referring Provider: Noris Milian, [address], [place], [id number]. tel:[phone] [facility], [address] [place] [address], [id number], [place] tel:[phone] [facility] Other sex counselin gEncounter for oth general cnsl and advice on contraceptionEncounter for removal of intrauterine contraceptive deviceEnctr srvlnc transdermal patch hormonal contraceptive device Rukhsana Hamm. [address] [place] [address], [id number], . tel:[phone] Referring Provider: Noris Milian, [address], [place], [id number]. tel:[phone] [facility], [address] [place] [address], [id number], [place] tel:[phone] PPNCNY Fleming Other sex counselin gEncounter for oth general cnsl and advice on contraceptionEncntr screen for infections w sexl mode of transmissHigh risk heterosexual behaviorEnctr for init prescription of patch hormonal contracep devEncounter for test, result negativeHuman immunodeficiency virus [HIV] counseling Rukhsana Hamm. [address] [place] [address], [id number], [place]. tel:[phone] Referring Provider: Noris Milian, [address] [place] [address], [id number]. tel:[phone] [facility], [address] [place] [address], [id number], [place] tel:[phone] PPBANDARNY Fleming Pruritus vulvaeUnsp ecified contact dermatitis, unspecified causeEncounter for oth general cnsl and advice on contraception King Judith. [address] [place], [place], [id number]. tel:[phone] Referring Provider: Judith Bassett, [address], [place], [id number]. tel:[phone] [facility], [address] [place] [address], [id number], [place] tel:[phone] PPNCNY Fleming Human immunodeficie ncy virus [HIV] counselingEncounter for oth general cnsl and advice on contraceptionEncounter for routine checking of intrauterine contracep devEncntr for continuing education specialist exam (general) (routine) w/o abn findings King Judith. [address] [place] [address], [id number]. tel:[phone] Referring Provider: Judith Bassett, [address], [place], [id number]. tel:[phone] [facility], [address] [place] [address], [id number], tel:[phone] PPVTNY Fleming Encounter for pregn evelina test, result negativeEncounter for oth general cnsl and advice on contraceptionEncounter for routine checking of intrauterine contracep devEncounter for insertion of intrauterine contraceptive deviceHigh risk heterosexual behavior Dave Rocha. [address] [place] [address], [id number], [place]. tel:[phone] Referring Provider: Josefina Dallas, [address] [place] [address], [id number]. tel:[phone] [facility], [address] [place] [address], [address] [place] [address], tel:[phone] [facility] Encounter for pregn evelina test, result negativeEncntr screen for infections w sexl mode of transmissHigh risk heterosexual behaviorEncounter for oth general cnsl and advice on contraception Zena Doran. [address] [place] [address], [id number], [place]. tel:[phone] Referring Provider: Andreea Freitas, [address] [place] [address], [id number]. tel:[phone] [facility], [address] [place] [address], [id number], [place] tel:[phone] [facility] HIV CounselingPT, N egativeBVFamily Planning Counseling Dave Rocha. [address] [place] [address], [id number], . tel:[phone] Family History Family Member Diagnosis Age At [...] Unspecified Payers Payer name Insurance type Covered green party ID Authorization(s ) [facility] CI [id number] Social History Type Description Quantity Date Captured [...] cessation counseling com pleted Appointment Sally Mckeon Called PT - Too Soon For Annual BOOKED History Of Present Illness Encounter Date [...] Date No Information Medical Equipment Description Device [place] Device Identifier Effective Leoncio es (start - stop) Status No Information Mental Status Date Cognitive Assessment No Information Health Concerns Observation Date No Information Concern Status Date No Information Physical Examination Exam Findings Details No Information
--- OUTSIDE RECORDS SUMMARY | 2020-07-21 22:18 | CCD | Continuity of Care Document ---
Author Author [facility] Organization [facility] Address Unknown Phone Unavailable Care Team Providers Care Keyboard Instrument Repairer Name Role Phone Noris Garrett Unavailable Unavailable Allergies, Adverse Reactions, Alerts Substance Reaction Status Criticality Penicillins Nausea/Vomit ing Active No Information Medications Medication Instructions Dosage Effective Dates (start - stop) Sta tus Comments Xulane 150 mcg-35 mcg/24 hr transdermal patch Xulane 1 patch per week x 3 weeks then remove x 1 week - Active Lexapro 10 mg tablet take 1 tablet by oral route 2 times every d ay 10 MG - No Longer Active buspirone 10 mg tablet take 1 tablet by oral route 2 times every day 10 MG - No Longer Active trazodone 50 mg tablet take 1 tablet by oral route every day at bedtime 50 MG - No Longer Active PRN Problems Condition Effective Dates (start - stop) Clinical Status C omments Encntr screen for infections w sexl mode of transmiss Human immunodeficiency virus [HIV] counseling Encounter for test, result negative 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 Height/Weight CVR Med.Svc. Thyroid Palp. CVR Med.Svc. Heart/Lung Ausc. CVR Med.Svc. Abdominal Palp. CVR Med.Svc. Method Initiation CVR Tour Actor.Svc. Contraceptive CVR Tour Actor.Svc. Other CVR Tour Actor.Svc. STI / H Results Test Name Date and Time Measure Units Reference Range Abnormal Flag St atus Comments Panel Description: Chlamydia trachomatis rRNA [Presence] in Unspecified specimen by REMINGTON with probe detection Final Urine CT/GC Combo - CT 00:00:00 Negative N Final Performed by:
CDD ([id number])

Panel Description: Amplified GC - Urine Final Urine CT/GC Combo - GC 00:00:00 Negative N Final : No

Performed by:
CDD ([id number])

Panel Description: High Sensitivity Urine Test Fi nal High Sensitivity Urine Test 11:41:21 N egativeLot: [id number]: 07/25/2021 Final Advance Directives Directive Yes / No Effective Date File Name No Information Encounters Encounter Description Practice Location Reason(s) For Visit Diagnose s Date Provider Providers Copied on Encounter PREV VISIT, EST, AGE 18-39 [facility], [address] [place] [address], [id number], tel:[phone] [facility] Prevent ative Visit (chief complaint) Encntr screen for infections w sexl mode of transmissHuman immunodeficiency virus [HIV] counselingEncounter for test, result 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 [address] [place] [address], [id number], . tel:[phone] Referring Provider: Noris Milian, [address] [place] [address], [id number]. tel:[phone] [facility], [address] [place] [address], [id number], [place] tel:[phone] [facility] Other sex counselin gEncounter for oth general cnsl and advice on contraceptionEncounter for removal of intrauterine contraceptive deviceEnctr srvlnc transdermal patch hormonal contraceptive device Rukhsana Hamm. [address] [place] [address], [id number], [place]. tel:[phone] Referring Provider: Noris Milian, [address] [place] [address], [id number]. tel:[phone] [facility], [address] [place] [address], [id number], [place] tel:[phone] [facility] Other sex counselin gEncounter for oth general cnsl and advice on contraceptionEncntr screen for infections w sexl mode of transmissHigh risk heterosexual behaviorEnctr for init prescription of patch hormonal contracep devEncounter for test, result negativeHuman immunodeficiency virus [HIV] counseling Rukhsana Hamm. [address] [place] [address], [id number], [place]. tel:[phone] Referring Provider: Noris Milian, [address] [place] [address], [id number]. tel:[phone] [facility], [address] [place] [address], [id number], [place] tel:[phone] [facility] Pruritus vulvaeUnsp ecified contact dermatitis, unspecified causeEncounter for oth general cnsl and advice on contraception King Judith. [address] [place] [address], [id number]. tel:[phone] Referring Provider: Judith Bassett, [address] [place] [address], [id number]. 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 [address] [place] [address], [id number]. tel:[phone] Referring Provider: Judith Bassett, [address] [place] [address], [id number]. tel:[phone] [facility], [address] [place] [address], [id number], [place] tel:[phone] [facility] Encounter for pregn evelina test, result negativeEncounter for oth general cnsl and advice on contraceptionEncounter for routine checking of intrauterine contracep devEncounter for insertion of intrauterine contraceptive deviceHigh risk heterosexual behavior Dave Rocha. [address] [place] [address], [address] [place] [address], . tel:[phone] Referring Provider: Josefina Dallas, [address] [place] [address], [id number]. tel:[phone] [facility], [address] [place] [address], [address] [place] [address], tel:[phone] [facility] Encounter for pregn evelina test, result negativeEncntr screen for infections w sexl mode of transmissHigh risk heterosexual behaviorEncounter for oth general cnsl and advice on contraception Zena Doran. [address] [place] [address], [address] [place] [address], . tel:[phone] Referring Provider: Andreea Freitas, [address] [place] [address], [id number]. tel:[phone] [facility], [address] [place] [address], [address] [place] [address], tel:[phone] [facility] HIV CounselingPT, N egativeBVFamily Planning Counseling Dave Rocha. [address] [place] [address], [address] [place] [address], . tel:[phone] Family History Family Member Diagnosis Age At [...] Unspecified Payers Payer name Insurance type Covered libertarian ID Authorization(s ) [facility] CI [id number] Social History Type Description Quantity Date Captured Comments Alcohol Use Details Unknown Caffeine Use Details Unknown Tobacco Use Status Smoking Status Light tobacco smoker Sex Female Vital Signs Date / Time: Height Weight BMI Pulse Rate Blood Pressure Temperatu re Respiratory Rate Body Surface Area Head Circumference BMI percentile Pulse Ox In haled Ox 11:37 AM 63.00 in 121.00 lbs 21.43 kg/meter(2) 118/6 7 mm[Hg] Chief Complaint And Reason For Visit Most recent encounter only, dated '05/10/2020 11:20'. Preventative Visit (chief complaint) Reason For Referral Reason For Referral No Information Plan Of Treatment Date Type Action Status Goal Tobacco cessation counseling com pleted Goal Tobacco cessation counseling com pleted Goal Tobacco cessation counseling com pleted History Of Present Illness Encounter Date Complaint History Of Present I llness No Information Functional Status Date Functional Assessment No Information Medications Administered Medication Instructions Dosage Effective Dates (start - stop) Sta tus Comments No Information Instructions Date Instruction Additional Informati on No Information Assessments Type Assessment Date assessment Encntr screen for infections w sexl mode of transmiss assessment Human immunodeficiency virus [HIV] couns eling assessment Encounter for test, result neg ative assessment 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 Anterior palpation - Normal. No abdominal tenderness. No hepatic enlargement. No splenic enlargement. No palpable mass. Cardiovascular Normal Heart rate - Regular rate. Rhythm - Regular. Heart sounds - Normal S1, Normal S2. Murmurs - None. Extremities - No edema. Extremity Normal No Cyanosis. No Wilton a. Neck Exam Normal Inspection - Normal. Palpation - Normal. Thyroid gland - Normal. Cervical lymph nodes - Normal. Neurological Normal Level of consciousne ss - Normal. Orientation - Normal. Respiratory Normal Inspection - Normal. Auscultation - Normal. Effort - Normal. Skin Normal Inspection - Normal. Palpation/texture - Normal. Breast * Breast exam deferred . BSA was discussed.
--- OUTSIDE RECORDS SUMMARY | 2020-07-21 22:18 | CCD ---
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 ([facility]) Name Value Range Interpretation Code Description Data Lali rce(s) Supporting Document(s) Negative Normal (applies to non-numeric resul ts) Urine CT/GC Combo - CT [facility] ([facility]) ID Date Data Source [id number] 07/01/2019 11:04:29 AM [facility] Current Problems: DENTAL CARIES EXTENDIN G INTO DENTINE (ICD-521.02) (ICD10- K02.62)Dental caries (ICD-521.00) (PIX45-M94.9)[place] teeth impaction (ICD- 520.6) (UAE86-J85.1)Vaccination (ICD-V05.9) (MMS93-Q24)Congenital nevi (ICD- 216.9) (CHZ60-V80.9)Inappropriate diet and eating habits (ICD-V69.1) (ICD10- Z72.4)INSOMNIA (ICD-780.52) (OAU92-Y39.00)ASTHMA (ICD-493.90) (ICD10- J45.909)Anxiety (ICD-300.00) (SSQ64-O53.9)Well Child Exam WITH Abnormal Findings (under 18) (ICD-V20.2) (IPF72-M37.121)Problem list reviewed during this update.Current Medications: TYLENOL EXTRA STRENGTH 500 MG ORAL TABLET (ACETAMINO PHEN) iq6h prn; Route: ORALMedication list reviewed during this update.Current Allergies: * PET (Mild)* SEASONAL (Mild)Allergy list reviewed during this update. Dental Chart: Procedures:Type - CDT Code - Description B - (D0330) Panoramic film (Performed by Andreea Hardin DMD) B - (D0140) Limited oral evaluation - problem focused on Tooth # 17 (Performed by Andreea Hardin DMD) Chart Notes:kev (Jul 01 2019 1:32PM): S: CC:" My bottom left wisdom tooth is really hurting"O: RMHx (-) Per Pt. poss. allergy to penicillin HPI: [address]: 8 BP: 117/75 P: 98, LL wisdom tooth, operculim very tender, no swelling, no infectionA: DDS recommends ext. of all wisdom teeth , DX:impacted wisdom teethP: Referreal to OS for wisdom teeth removalInformed Pt about new pain management policy of the clinic regarding about narcotic,told pt to alternate Ibuprophen 600- 800mg and tylenol 500mg every 4 to 6 hrs for pain when neededAssisted By: PD NV: P/Andreea Bull DMD by kev (07/01/2019 1:32 PM): Tooth Notes and Watches:- Tooth 12 Watch: DistalJigna Gaffney by raymon (06/16/2016 10:33 AM): - Tooth 13 Watch: MesialJigna Gaffney by raymon (06/16/2016 10:33 AM): - Tooth 29 Watch: Jigna Mays by raymon (06/16/2016 10:33 AM): - Tooth 4 Watch: Jigna Mays by raymon (06/16/2016 10:33 AM): Assessment & Plan Medications:TYLENOL EXTRA STRENGTH 500 MG ORAL TABLETAllergies:* PET (Mild)* SEASONAL (Mild)Orders:Oral Surgery Referral [CPT- 79398] Name Value Range Interpretation Code Description Data Lali rce(s) Supporting Document(s) Procedure Social History Code Duration Value Status Description Data Source(s ) Smoking 07/05/2020 12:00:00 AM EST Light tobacco smoker comple maged Light tobacco smoker [facility] ([facility]) Vital Signs ID Date Data Source UNK Name Value Range Interpretation Code Description Data Source(s) Body mass index (BMI) [Ratio] 21.43 kg/m2 21.43 kg/m2 [facility] ([facility]) Diastolic blood pressure 67 mm[Hg] 67 mm[Hg] [facility] ([facility]) Systolic blood pressure 118 mm[Hg] 118 mm[Hg] N [facility] ([facility]) Body weight 54.885 kg 54.885 kg [facility] ([facility]) Body height 160.02 cm 160.02 cm [facility] ([facility]) Body weight 58.061 kg 58.061 kg [facility] ([facility]) Body mass index (BMI) [Ratio] 22.0 kg/m2 22.0 k g/m2 [facility] ([facility]) Body weight 128.00 [lb_av] 128.00 [lb_av] MEDEN T ([facility]) Body height 64 [in_i] 64 [in_i] [facility] 5'4" Diastolic blood pressure 60 mm[Hg] 60 mm[Hg] [facility] Systolic blood pressure 110 mm[Hg] 110 mm[Hg] M EDENT ([facility]) Patient Treatment Plan of Care Planned Activity Planned Date Details Description Data Source (s) 168 HR Ethinyl Estradiol 0.27487 MG/HR / norelgestromin 0.86248 MG/HR Transdermal Patch [Xulane] 05/10/2020 12:00:00 AM EST [facility] ([facility]) 168 HR Ethinyl Estradiol 0.07879 MG/HR / norelgestromin 0.77745 MG/HR Transdermal Patch [Xulane] 01/20/2020 12:00:00 AM EDT [facility] ([facility]) Trazodone Hydrochloride 50 MG Oral Tablet [facility] ([facility]) buspirone hydrochloride 10 MG Oral Tablet [facility] ([facility]) Escitalopram 10 MG Oral Tablet [Lexapro] [facility] ([facility])
[2020-07-21] MEDS ORDERED: ROCURONIUM BROMIDE 50 MG/5 ML VIAL IV ONE (22:20)
[2020-07-21] MEDS ORDERED: ETOMIDATE INJ 20MG/10ML VIAL IV ONE (22:20)
[2020-07-21] MEDS ORDERED: NS 500 ML IV ONE (22:20)
[2020-07-21] MEDS ORDERED: PROPOFOL 1,000 MG/100 ML VIAL As Ordered ONE (22:26)
[2020-07-21 22:37] VITALS: O2SAT 100
[2020-07-21] MEDS ORDERED: propofoL 1,000 MG in IV 1 EA IV SCH (22:40)
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
[2020-07-21 22:59] LABS: ABG BASE EXCESS -7.1 (-2.0-2.0); ABG O2 SATURATION 96.2 % (95.0-99.0); ABG PARTIAL PRESSURE CO2 40.1 mmHg (35.0-45.0); ABG PARTIAL PRESSURE O2 93.2 mmHg (75.0-100.0); ABG STANDARD HCO3 18.7 MEQ/L (22.0-26.0); ABG TOTAL CO2 20.2 MEQ/L (22.0-29.0); ABG pH (ARTERIAL) 7.293 UNITS (7.350-7.450)
[2020-07-21 23:22] LABS: BASO % 0.2 % (0.0-1.0); EOS # 0.1 10^3/uL (0.0-0.5); EOS % 1.3 % (0.0-3.0); HEMATOCRIT 36.5 % (36.0-47.0); LYMPH # 3.8 10^3/uL (1.5-5.0); LYMPH % 44.6 % (24.0-44.0); MEAN CORPUSCULAR HEMOGLOBIN 29.9 pg (27.0-33.0); MEAN CORPUSCULAR HGB CONC 32.9 g/dl (32.0-36.5); MEAN CORPUSCULAR VOLUME 90.8 fl (80.0-96.0); MONO # 0.7 10^3/uL (0.0-0.8); MONO % 8.5 % (2.0-8.0); NEUTROPHILS # 3.8 10^3/uL (1.5-8.5); NEUTROPHILS % 45.2 % (36.0-66.0); PLATELET COUNT, AUTOMATED 311 10^3/uL (150-450); RED BLOOD COUNT 4.02 10^6/uL (4.00-5.40); WHITE BLOOD COUNT 8.5 10^3/uL (4.0-10.0)
--- NOTE | 2020-07-21 23:28 | REPVR ---
PROCEDURE INFORMATION: Exam: XR Chest, 1 View Exam date and time: 07/21/2020 10:51 PM Age: 20 years old Clinical indication: Device placement; Other: Intubation tube placement / ng; Additional info: Post intubation tube placement TECHNIQUE: Imaging protocol: XR of the chest Views: 1 view. COMPARISON: CR Chest, 2 view PA, Lat 02/01/2020 2:06 PM FINDINGS: Tubes, catheters and devices: Endotracheal tube with its tip above the juice. Lungs: Unremarkable. No consolidation. Pleural spaces: Unremarkable. No pleural effusion. No pneumothorax. Heart/Mediastinum: Unremarkable. No cardiomegaly. Bones/joints: Unremarkable. IMPRESSION: Endotracheal tube with its tip above the juice. Electronically signed by: Damien Sorensen On 07/21/2020 23:28:41 PM
[2020-07-21 23:51] LABS: RSV AMPLIFICATION NEGATIVE (NEGATIVE)
[2020-07-21 23:53] LABS: AMPHETAMINES LEVEL URINE NEGATIVE (NEGATIVE); BARBITURATES URINE NEGATIVE (NEGATIVE); BENZODIAZEPINES URINE POSITIVE (NEGATIVE); CANNABINOIDS URINE POSITIVE (NEGATIVE); COCAINE METABOLITE URINE NEGATIVE (NEGATIVE); METHADONE URINE NEGATIVE (NEGATIVE); OPIATES URINE NEGATIVE (NEGATIVE); PHENCYCLIDINE URINE NEGATIVE (NEGATIVE)
[2020-07-22] VITALS (16 sets, daily range): BP systolic 97–134; BP diastolic 57–90
[2020-07-22 00:22] LABS: HCG, SERUM QUALITATIVE NEGATIVE (NEGATIVE); OSMOLALITY SERUM 381 MOSM/KG (275-295)
[2020-07-22] MEDS: MIDAZOLAM INJ 2MG/2ML VIAL (J2250 PER 1MG) IV PRN ×9 (00:23→11:45)
[2020-07-22 00:25] LABS: ACETAMINOPHEN LEVEL < 2.0 UG/ML (10.0-30.0); ALBUMIN 3.4 GM/DL (3.2-5.2); ALT/SGPT 19 U/L (12-78); BILIRUBIN,DIRECT < 0.1 MG/DL (0.0-0.2); BLOOD UREA NITROGEN 5 MG/DL (7-18); CALCIUM LEVEL 7.2 MG/DL (8.5-10.1); CARBON DIOXIDE LEVEL 23 MEQ/L (21-32); CHLORIDE LEVEL 120 MEQ/L (98-107); CPK CREATINE PHOSPHOKINASE 75 U/L (26-192); CREATININE FOR GFR 0.48 MG/DL (0.55-1.30); ETHYL ALCOHOL (ETHANOL) 0.329 % (0.000-0.010); GLOMERULAR FILTRATION RATE > 60.0 (>60); GLUCOSE, FASTING 114 MG/DL (70-100); POTASSIUM SERUM 3.6 MEQ/L (3.5-5.1); SALICYLATE LEVEL < 1.7 MG/DL (5.0-30.0); SODIUM LEVEL 149 MEQ/L (136-145); TOTAL PROTEIN 6.4 GM/DL (6.4-8.2)
[2020-07-22] MEDS ORDERED: D5W 1,000 ML IV SCH (00:48)
[2020-07-22] MEDS ORDERED: propofoL 1,000 MG in IV 1 EA IV SCH ×2 (00:48→12:49)
[2020-07-22] MEDS ORDERED: MIDAZOLAM INJ 2MG/2ML VIAL (J2250 PER 1MG) IV PRN (00:50)
--- NOTE | 2020-07-22 01:17 | REPVR ---
PROCEDURE INFORMATION: Exam: CT Head Without Contrast Exam date and time: 07/22/2020 12:06 AM Age: 20 years old Clinical indication: Altered mental status/memory loss; Other: Overdose TECHNIQUE: Imaging protocol: Computed tomography of the head without contrast. Radiation optimization: All CT scans at this facility use at least one of these dose optimization techniques: automated exposure control; mA and/or kV adjustment per patient size (includes targeted exams where dose is matched to clinical indication); or iterative reconstruction. COMPARISON: CT Head without contrast 01/11/2019 8:18 AM FINDINGS: Brain: Normal. No hemorrhage. Unremarkable white matter. No mass effect. Cerebral ventricles: No ventriculomegaly. Bones/joints: Unremarkable. No acute fracture. Paranasal sinuses: Visualized sinuses are unremarkable. No fluid levels. Mastoid air cells: Visualized mastoid air cells are well aerated. Soft tissues: Unremarkable. IMPRESSION: No acute intracranial abnormality. Electronically signed by: Anil Infante On 07/22/2020 01:17:54 AM
[2020-07-22 01:43] LABS: BILIRUBIN,TOTAL < 0.1 MG/DL (0.2-1.0)
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
[2020-07-22] MEDS: propofoL 1,000 MG in IV 1 EA IV SCH ×3 (03:30→11:14)
[2020-07-22 05:09] LABS: HEMATOCRIT 37.7 % (36.0-47.0); MEAN CORPUSCULAR HEMOGLOBIN 29.1 pg (27.0-33.0); MEAN CORPUSCULAR HGB CONC 31.8 g/dl (32.0-36.5); MEAN CORPUSCULAR VOLUME 91.5 fl (80.0-96.0); PLATELET COUNT, AUTOMATED 283 10^3/uL (150-450); RED BLOOD COUNT 4.12 10^6/uL (4.00-5.40)
[2020-07-22 05:26] LABS: BLOOD UREA NITROGEN 5 MG/DL (7-18); CALCIUM LEVEL 7.3 MG/DL (8.5-10.1); CARBON DIOXIDE LEVEL 25 MEQ/L (21-32); CHLORIDE LEVEL 115 MEQ/L (98-107); CREATININE FOR GFR 0.61 MG/DL (0.55-1.30); GLOMERULAR FILTRATION RATE > 60.0 (>60); GLUCOSE, FASTING 98 MG/DL (70-100); MAGNESIUM LEVEL 1.6 MG/DL (1.8-2.4); PHOSPHORUS LEVEL 2.4 MG/DL (2.5-4.9); POTASSIUM SERUM 3.8 MEQ/L (3.5-5.1); SODIUM LEVEL 145 MEQ/L (136-145)
[2020-07-22 06:14] LABS: ABG BASE EXCESS -4.7 (-2.0-2.0); ABG HCO3 19.3 MEQ/L (22.0-26.0); ABG O2 SATURATION 98.5 % (95.0-99.0); ABG PARTIAL PRESSURE CO2 32.1 mmHg (35.0-45.0); ABG STANDARD HCO3 20.6 MEQ/L (22.0-26.0); ABG TOTAL CO2 20.2 MEQ/L (22.0-29.0); ABG pH (ARTERIAL) 7.396 UNITS (7.350-7.450)
--- NOTE | 2020-07-22 08:13 | REP ---
INDICATION: Intubated. COMPARISON: 07/21/2020 TECHNIQUE: Semi-erect AP portable chest FINDINGS: Endotracheal tube unchanged. There is a nasogastric tube now placed with tip off the field well into the stomach. Lungs adequately inflated. No definite effusion or acute infiltrate. Cardiomediastinal silhouette and bony thorax without significant change. No free air under the diaphragm. IMPRESSION: Endotracheal tube as before and new nasogastric tube seen with its tip off the field well into the stomach. Otherwise negative. <Electronically signed by Kolton Castillo > 07/22/20 [id number]
--- NOTE | 2020-07-22 08:39 | HPE ---
HISTORY AND PHYSICAL DATE OF ADMISSION: 07/22/2020 CHIEF COMPLAINT: Altered mental status, intoxication HISTORY OF PRESENT ILLNESS: History is obtained from the chart and from other collateral information as the patient is intubated and unable to provide a history. Ms. Mckeon is a 20-year-old female with a past medical history of childhood asthma, history of substance abuse, and a laparoscopic resection for an ileocolonic intussusception who had presented to the Emergency Department with altered mental status and agitation in the setting of alcohol and drug intoxication. The patient was reportedly belligerent and combative with EMS and had been given 2.5 mg of Versed. Upon arrival in the ED, she was lethargic and reported to have episodes of periodic agonal or more apneic breathing. She was able to arouse briefly and had reported taking Smita in addition to drinking alcohol. Given concern, however for airway protection with her mental status, the patient was intubated in the ED and placed on mechanical ventilation. She was given Etomidate and Rocuronium for intubation. After intubation, the patient was noted to be agitated and combative. She was started on Propofol for sedation and was on maximum infusion rate. She still had required two-point restraints as despite the Propofol she would continue to be combative and agitated. She did get p.r.n. doses of Versed in the ED with improvement. She was also given a 500 ml bolus of saline. The patient had a CT done which did not show any acute intracranial abnormality. She was transferred to the ICU for further management. PAST MEDICAL HISTORY/PAST SURGICAL HISTORY: 1. Childhood asthma. 2. Tonsillectomy. 3. [place] tooth surgery. 4. History of an ileocolonic intussusception status post laparoscopic reduction and ileocolonic resection. HOME MEDICATIONS: 1. control. ALLERGIES: No known drug allergies. FAMILY HISTORY: Mother with a history of diabetes. SOCIAL HISTORY: Previous history of substance abuse and history of depression. Patient admitted to alcohol use as well as taking Smita. She has also previously reported using marijuana in the past. REVIEW OF SYSTEMS: Unable to be obtained as the patient is intubated and sedated. PHYSICAL EXAMINATION: VITAL SIGNS: Temperature 97.9, pulse 109, respirations 18, blood pressure 114/80, O2 sat 98% on 21% FIO2. GENERAL: Patient is intubated and sedated. She is responsive minimally to painful stimuli currently but does appear to withdraw to pain appropriately. HEENT: Normocephalic, atraumatic. Pupils are almost pinpoint but reactive bilaterally. There are moist mucous membranes noted. NECK: Supple. Trachea is midline. No palpable cervical adenopathy. She has an OG tube in place as well as her endotracheal tube. CARDIAC: Tachycardic, regular rate and rhythm. Normal S1 and S2, unable to clearly appreciate any murmurs. PULMONARY: There are coarse ventilator breath sounds bilaterally but no wheezing, rales or rhonchi. ABDOMEN: Soft, nontender and nondistended. Bowel sounds are present. EXTREMITIES: There is no lower extremity noted bilaterally. The patient's wrists are in two-point restraints. LABORATORY DATA: WBC is 8.5, hemoglobin is 12.0, platelets are 311,000. Chemistries: Sodium is 149, potassium is 3.6, chloride is 120, bicarbonate 23, BUN 5, creatinine 0.48, glucose is 114. Serum osm was 381, calcium was 7.2, AST and ALT are 12 and 19, albumin 3.4. Lactic acid was 1.9. ABG: pH is 7.93, pO2 of 40.1, pO2 of 93.2. U-tox was positive for benzodiazepines and cannabis. ETOH level was 0.329. IMAGING: Chest x-ray shows the ET-tube approximately 1.5 to 2 cm above the juice. There is an OG-tube in place coursing below the left hemidiaphragm. There is no focal opacities or infiltrates noted. Head CT showed no acute intracranial abnormality. ASSESSMENT AND PLAN: Ms. Mckeon is a 20-year-old female with a history of alcohol abuse and depression who presented with encephalopathy in the setting of alcohol intoxication as well as drug intoxication. She had reported taking Smita as well as drinking alcohol earlier in the evening. The patient was brought in due to her altered mental status as well as with her combativeness and agitation. She had been given Versed by EMS for sedation and in the ED the patient was reported to be somnolent with occasional apneic or more agonal breathing. She was therefore intubated for airway protection in the ED and placed on mechanical ventilation. After intubation she continued to have periods of agitation despite being on a propofol infusion and did require two-point restraints as well as p.r.n. Versed for sedation. She currently appears to be well-sedated. 1. Metabolic encephalopathy in the setting of ETOH and drug intoxication. 2. Respiratory failure in the setting of drug intoxication on mechanical ventilation. 3. Hypernatremia. Will continue patient on mechanical ventilator with PRVC with settings of 400/18/21 and 5. Will continue daily ABGs and chest x-ray while intubated. Will continue with vent bundle care with head of bed elevation with Chlorhexidine mouthwash. Will continue patient on Propofol for sedation with Versed p.r.n. If she continues to have issues with agitation despite being on Propofol would consider changing to a versed drip instead. Patient may also need Precedex for weaning trials if she becomes agitated with weaning of sedation. Will continue with daily weaning trails and sedation vacation, will attempt to extubate patient in the morning if tolerating weaning trial Will start patient on D5W at 100 ml/hr for her hypernatremia and hyperchloremia. The patient has a Metz catheter in place. Will continue to monitor I and O's and renal function. GI prophylaxis with Protonix. DVT with Lovenox. Code Status: Full code. Total Critical Care time spent not including any procedures approximately 1 hour and 15 minutes. MTDD
[2020-07-22] MEDS ORDERED: dexmedeTOMidine 200 MCG in IV 1 EA IV SCH (08:45)
[2020-07-22] MEDS: PANTOPRAZOLE 40MG VIAL (C9113 PER 1) IV SCH (09:14)
[2020-07-22] MEDS: ENOXAPARIN 40MG/0.4ML SYRINGE (J1650 PER 10MG) SC SCH (09:14)
[2020-07-22] MEDS: CHLORHEXIDINE GLUCONATE 0.12 % 15ML UDC (PERIDEX ORAL RINSE) MT SCH ×2 (09:16→20:26)
[2020-07-22] MEDS ORDERED: MAG SULF 1GM/100ML (MAG RUN) 1 GM in IV 1 EA IV ONE (11:35)
[2020-07-22] MEDS ORDERED: POTASSIUM PHOSPHATE INJ 15 MMOL in D5W 250 ML IV ONE (14:00)
--- NOTE | 2020-07-22 16:28 | IPNPDOC ---
Text Note Date of Service The patient was seen on 07/22/20. NOTE Subjective: Patient is a 20-year-old female with a PMHx of Asthma, Substance abuse, and Depression who presented to the ER with AMS. The ER, patient was found to be intoxicated with alcohol and Smita. Patient was given Versed 2.5mg IV and became lethargic and had periods of agonal/apneic breathing. Patient was subsequently intubated in the ER for airway protection. After intubation. Patient was again agitated and combative and propofol drip was started. Patient received when necessary doses of Versed as she continued to remain arousable and agitated. Patient was admitted to the store warehouse associate service for further evaluation and treatment. This afternoon, patient has been extubated. Her cares been transitioned to the hospitalist service. Patient reports a mild headache and nausea. Has not experience any vomiting. Denies any chest pain, shortness of breath, palpitations, abdominal pain, constipation. Patient has a Metz catheter in place. Objective: Vitals (See below) General: Lying in bed, appears comfortable, drowsy, AAOx3 HEENT: NC, AT CVS: +S1S2 Lungs: Fair air entry b/l, -w/r/r Abdomen: Soft, ND, NT Extremities: - Edema, - Calf tenderness Assessment and plan: s/p Acute toxic encephalopathy - likely 2/2 alcohol consumption / drug abuse - Patient is currently oriented to person, place and time - No focal neurologic deficit - CT head 07/22: No acute intracranial abnormality. s/p Ventilator dependent respiratory failure - Intubated for airway protection / mentation - Currently breathing well on room air Polysubstance abuse - Patient was noted to be intoxicated with alcohol upon arrival - Also had attested to the use of Smita - s/p Precedex drip - Will start Thiamine / Folate / MVI s/p Hypernatremia Hypomagnesemia - Supplemented via IV GI prophylaxis - Was started on Protonix initially (re: Mechanical ventilation) - Will discontinue on discharge DVT prophylaxis - c/w Lovenox VS,Fishbone, I+O VS, Fishbone, I+O Laboratory Tests 07/21/20 23:07 07/22/20 04:46 Vital Signs Date Time Temp Pulse Resp B/P (MAP) Pulse Ox O2 Delivery O2 Flow Rate FiO2 07/22/20 14:00 100.3 95 15 107/78 (88) 99 Room Air 07/22/20 12:00 21 07/21/20 22:15 4.0 I&O- Last 24 Hours up to 6 AM 07/22/20 05:59 Intake Total 820 ml Output Total 500 ml Balance 320 ml OFELIA DILLARD MD Jul 22, 2020 16:28
[2020-07-22] MEDS: FOLIC ACID 1 MG TAB PO SCH (17:14)
[2020-07-22] MEDS: MULTIVITAMINS/MINERALS THERAP 1 TAB PO SCH (17:14)
[2020-07-22] MEDS: THIAMINE 100 MG TAB PO SCH (17:15)
[2020-07-22] MEDS ORDERED: FLUCONAZOLE 100 MG TAB PO ONE (17:45)
[2020-07-22] MEDS ORDERED: PILL CUTTER 1 EACH XX PRN (17:50)
[2020-07-22] MEDS: ACETAMINOPHEN TAB 650MG DOSE (2X325MG) PO PRN (17:59)
[2020-07-22] MEDS: CHLORASEPTIC SPRAY MT PRN (18:17)
--- NOTE | 2020-07-22 19:39 | ECGEPIP ---
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
[2020-07-23] MEDS: ACETAMINOPHEN TAB 650MG DOSE (2X325MG) PO PRN ×3 (00:04→17:53)
[2020-07-23 06:00] VITALS: BP 124/67
[2020-07-23 06:01] LABS: HEMATOCRIT 36.2 % (36.0-47.0); HEMOGLOBIN 12.4 g/dl (12.0-15.5); MEAN CORPUSCULAR HEMOGLOBIN 30.2 pg (27.0-33.0); MEAN CORPUSCULAR HGB CONC 34.3 g/dl (32.0-36.5); MEAN CORPUSCULAR VOLUME 88.1 fl (80.0-96.0); PLATELET COUNT, AUTOMATED 276 10^3/uL (150-450); RED BLOOD COUNT 4.11 10^6/uL (4.00-5.40); WHITE BLOOD COUNT 16.3 10^3/uL (4.0-10.0)
[2020-07-23 06:18] LABS: BLOOD UREA NITROGEN 5 MG/DL (7-18); CALCIUM LEVEL 8.4 MG/DL (8.5-10.1); CARBON DIOXIDE LEVEL 22 MEQ/L (21-32); CHLORIDE LEVEL 110 MEQ/L (98-107); CREATININE FOR GFR 0.62 MG/DL (0.55-1.30); GLOMERULAR FILTRATION RATE > 60.0 (>60); GLUCOSE, FASTING 90 MG/DL (70-100); POTASSIUM SERUM 3.7 MEQ/L (3.5-5.1); SODIUM LEVEL 139 MEQ/L (136-145)
[2020-07-23 08:27] LABS: MAGNESIUM LEVEL 2.2 MG/DL (1.8-2.4)
[2020-07-23 08:28] LABS: PHOSPHORUS LEVEL 3.2 MG/DL (2.5-4.9)
[2020-07-23] MEDS: CHLORHEXIDINE GLUCONATE 0.12 % 15ML UDC (PERIDEX ORAL RINSE) MT SCH ×2 (09:00→20:50)
[2020-07-23] MEDS: FOLIC ACID 1 MG TAB PO SCH (09:06)
[2020-07-23] MEDS: THIAMINE 100 MG TAB PO SCH (09:06)
[2020-07-23] MEDS: MULTIVITAMINS/MINERALS THERAP 1 TAB PO SCH (09:06)
[2020-07-23] MEDS: PANTOPRAZOLE 40MG VIAL (C9113 PER 1) IV SCH (09:07)
[2020-07-23] MEDS: CHLORASEPTIC SPRAY MT PRN (09:07)
[2020-07-23] MEDS: ENOXAPARIN 40MG/0.4ML SYRINGE (J1650 PER 10MG) SC SCH (09:07)
--- NOTE | 2020-07-23 09:49 | REP ---
INDICATION: Fever COMPARISON: 07/22/2020. TECHNIQUE: PA/Lateral FINDINGS: Lungs: Clear, no infiltrate. Heart: Normal in size. Mediastinum: Mediastinal silhouette unremarkable. Pleural angles: Unremarkable.. Bones and soft tissues: Unremarkable. IMPRESSION: No acute pulmonary disease. <Electronically signed by Pranay Hyde > 07/23/20 0959
[2020-07-23] MEDS ORDERED: ONDANSETRON 4MG/2ML VIAL IV PRN (09:50)
[2020-07-23 10:02] LABS: ALBUMIN 3.5 GM/DL (3.2-5.2); ALT/SGPT 18 U/L (12-78); BILIRUBIN,DIRECT 0.2 MG/DL (0.0-0.2); BILIRUBIN,TOTAL 0.6 MG/DL (0.2-1.0); TOTAL PROTEIN 6.6 GM/DL (6.4-8.2)
--- NOTE | 2020-07-23 10:52 | IPNPDOC ---
Text Note Date of Service The patient was seen on 07/23/20. NOTE Subjective: Patient is a 20-year-old female with a PMHx of Asthma, Substance abuse, and Depression who presented to the ER with AMS. The ER, patient was found to be intoxicated with alcohol and Smita. Patient was given Versed 2.5mg IV and became lethargic and had periods of agonal/apneic breathing. Patient was subsequently intubated in the ER for airway protection. After intubation, patient was again agitated and combative and propofol drip was started. Patient received when necessary doses of Versed as she continued to remain arousable and agitated. Patient was admitted to the wrapping machine operator service for further evaluation and treatment. Patient reports a mild headache and nausea that she is not different from normal. Has not experienced any vomiting. Denies any shortness of breath, palpitations, or constipation. Her temple[place] catheter was discontinued yesterday. She reports some RUQ pain and states that she has some substernal burning pain that is alleviated with drinking fluids. Objective: Vitals (See below) General: Lying in bed, appears comfortable, drowsy, AAOx3 HEENT: NC, AT Cardiovascular: RRR, no M/R/G, normal S1,S2 Lung: CTAB, no W/R/R Abdomen: soft, RUQ tenderness noted Extremities: no lower extremity edema appreciated Assessment and plan: #RUQ tenderness - pt continues to have nausea, order PRN Zofran - Liver and Gallbladder US and liver profile ordered to rule out cholestatic, hepatic etiologies - Keep on clear liquid diet for now. #Transient febrile temperature overnight - pt had fever yesterday, repeat CXR ordered to rule out infectious cause - Leukocytosis - Will check imaging stated above - Repeat UA - s/p Diflucan 150mg PO x 1 (re: Vaginal yeast) #s/p Acute toxic encephalopathy - likely 2/2 alcohol consumption / drug abuse - Patient is currently oriented to person, place and time - No focal neurologic deficit - CT head 07/22: No acute intracranial abnormality. #s/p Ventilator dependent respiratory failure - Intubated for airway protection / mentation - Currently breathing well on room air #Polysubstance abuse - Patient was noted to be intoxicated with alcohol upon arrival - Also had attested to the use of Smita - s/p Precedex drip - Will start Thiamine / Folate / MVI #s/p Hypernatremia - resolved spontaneously #Hypomagnesemia - Supplemented via IV #GI prophylaxis - Was started on Protonix initially (re: Mechanical ventilation) - Will discontinue on discharge #DVT prophylaxis - c/w Lovenox. VS,Fishbone, I+O VS, Fishbone, I+O Laboratory Tests 07/23/20 05:42 Vital Signs Date Time Temp Pulse Resp B/P (MAP) Pulse Ox O2 Delivery O2 Flow Rate FiO2 07/23/20 06:00 97.6 83 18 124/67 (86) 97 07/22/20 18:00 Room Air 07/22/20 13:00 21 07/21/20 22:15 4.0 l I&O- Last 24 Hours up to 6 AM 07/23/20 06:00 Intake Total 2958.2 ml Output Total 1450 ml Balance 1508.2 ml GME ATTESTATION My faculty preceptor for this patient encounter was physically present during the encounter and was fully available. All aspects of the patient interview, examination, medical decision making process, and medical care plan development were reviewed and approved by the faculty preceptor. The faculty preceptor is aw are and concurs with the plan as stated in the body of this note and will attest to such by his/her cosignature. ATTENDING NOTE I, Jose Angel Dillard, have independently examined this patient and performed my own physical exam, as well as reviewed the documentation and edited where necessary. I have discussed in detail with the resident / student the findings and plan of treatment as documented by the resident / student and edited their note. I agree with their findings and treatment plan and have edited their documentation. I will continue to follow the patient during this hospital stay. Jesus Nicolas DO Jul 23, 2020 10:52 JOSE ANGEL DILLARD MD Jul 23, 2020 14:10
[2020-07-23 14:00] VITALS: BP 100/57
[2020-07-23 14:56] LABS: AMYLASE 82 U/L (25-115); LIPASE 88 U/L (73-393)
--- NOTE | 2020-07-23 16:48 | REP ---
INDICATION: RUQ pain, r/o hepatic etiology (incl. not woods to hepatitis). COMPARISON: None. TECHNIQUE: Real-time sonographic evaluation of right upper quadrant performed. FINDINGS: The gallbladder demonstrates no evidence of intraluminal sludge or calculi, wall thickening or pericholecystic fluid. There is no intrahepatic or extrahepatic biliary dilatation, common bile duct measures 3 mm in maximum diameter. The liver demonstrates homogeneous echotexture with no gross mass. The pancreas demonstrates homogeneous echotexture with no gross mass. The right kidney demonstrates no hydronephrosis, with a normal size of 11.1 cm in length. No free fluid is seen. IMPRESSION: Negative right upper quadrant ultrasound. <Electronically signed by Pranay Hyde > 07/23/20 [id number]
[2020-07-23 22:00] VITALS: BP 105/56
[2020-07-24 06:00] VITALS: BP 112/62
[2020-07-24 06:31] LABS: HEMATOCRIT 35.2 % (36.0-47.0); HEMOGLOBIN 11.7 g/dl (12.0-15.5); MEAN CORPUSCULAR HGB CONC 33.2 g/dl (32.0-36.5); MEAN CORPUSCULAR VOLUME 90.3 fl (80.0-96.0); PLATELET COUNT, AUTOMATED 271 10^3/uL (150-450)
[2020-07-24 06:56] LABS: BLOOD UREA NITROGEN 6 MG/DL (7-18); CALCIUM LEVEL 8.7 MG/DL (8.5-10.1); CARBON DIOXIDE LEVEL 21 MEQ/L (21-32); CHLORIDE LEVEL 110 MEQ/L (98-107); CREATININE FOR GFR 0.69 MG/DL (0.55-1.30); GLOMERULAR FILTRATION RATE > 60.0 (>60); GLUCOSE, FASTING 77 MG/DL (70-100); POTASSIUM SERUM 3.9 MEQ/L (3.5-5.1); SODIUM LEVEL 138 MEQ/L (136-145)
[2020-07-24] MEDS: PANTOPRAZOLE 40MG VIAL (C9113 PER 1) IV SCH (09:00)
[2020-07-24] MEDS: FOLIC ACID 1 MG TAB PO SCH (09:00)
[2020-07-24] MEDS: ENOXAPARIN 40MG/0.4ML SYRINGE (J1650 PER 10MG) SC SCH (09:00)
[2020-07-24] MEDS: THIAMINE 100 MG TAB PO SCH (09:00)
[2020-07-24] MEDS: CHLORHEXIDINE GLUCONATE 0.12 % 15ML UDC (PERIDEX ORAL RINSE) MT SCH (09:00)
[2020-07-24] MEDS: MULTIVITAMINS/MINERALS THERAP 1 TAB PO SCH (09:00)
--- NOTE | 2020-07-24 09:33 | DS.PDOC ---
Discharge Summary General Date of Admission Jul 22, 2020 at 03:13 Date of Discharge 07/24/2020 Attending Physician: JOSE ANGEL LUCERO MD Discharge Summary PROCEDURES PERFORMED DURING STAY: Patient was intubated on admission; extubated on subsequent day ADMITTING DIAGNOSES: 1. Metabolic encephalopathy secondary to ethanol and drug intoxication. 2. Respiratory failure secondary to drug intoxication. 3. Hypernatremia. DISCHARGE DIAGNOSES: 1. Status post resolution of metabolic encephalopathy and respiratory failure secondary to ethanol and drug intoxication. COMPLICATIONS/CHIEF COMPLAINT: Intoxication. HISTORY OF PRESENT ILLNESS: History is obtained from the chart and from other collateral information as the patient is intubated and unable to provide a history. Ms. Mckeon is a 20-year-old female with a past medical history of childhood asthma, history of substance abuse, and a laparoscopic resection for an ileocolonic intussusception who had presented to the Emergency Department with altered mental status and agitation in the setting of alcohol and drug intoxication. The patient was reportedly belligerent and combative with EMS and had been given 2.5 mg of Versed. Upon arrival in the ED, she was lethargic and reported to have episodes of periodic agonal or more apneic breathing. She was able to arouse briefly and had reported taking Smita in addition to drinking alcohol. Given concern, however for airway protection with her mental status, the patient was intubated in the ED and placed on mechanical ventilation. She was given Etomidate and Rocuronium for intubation. After intubation, the patient was noted to be agitated and combative. She was started on Propofol for sedation and was on maximum infusion rate. She still had required two-point restraints as despite the Propofol she would continue to be combative and agitated. She did get p.r.n. doses of Versed in the ED with improvement. She was also given a 500 ml bolus of saline. The patient had a CT done which did not show any acute intracranial abnormality. She was transferred to the ICU for further management. HOSPITAL COURSE: Patient was intubated upon admission due to respiratory failure secondary to ethanol and drug intoxication. Temple[place] catheter was also placed when the patient was intubated. Patient was extubated the next day and templeton catheter was removed. Patient reported right upper quadrant tenderness for which right upper quadrant ultrasound was completed but showed no abnormalities or acute disease processes. Patient was advanced back to a regular diet after being on clear liquid diet due to extubation. Patient is now ambulating well, tolerating regular diet and able to urinate on her own. DISCHARGE MEDICATIONS: Please see below. ALLERGIES: Please see below. PHYSICAL EXAMINATION ON DISCHARGE: VITAL SIGNS: Please see below. GENERAL: Patient is in no acute distress, alert and oriented 3, cooperative on exam, anticipating discharge home. HEENT: No scleral icterus, no nasal discharge, oral mucosa moist CARDIOVASCULAR EXAMINATION: Regular rate and rhythm, no murmurs, rubs or gallops, no extremity edema RESPIRATORY EXAMINATION: Clear to auscultation bilaterally, no wheezes, rales or rhonchi ABDOMINAL EXAMINATION: Soft, nontender in all quadrants, nondistended EXTREMITIES: Good range of motion, strength 5 out of 5 of both upper and lower extremities SKIN: No open ulcerations at this time NEUROLOGICAL EXAMINATION: EOMI, Sensation and motor intact of upper and lower extremities PSYCHIATRIC EXAMINATION: Alert and oriented 3, full and open affect LABORATORY DATA: Please see below. IMAGIN07/21/2020XR: Lungs: Unremarkable. No consolidation. Pleural spaces: Unremarkable. No pleural effusion. No pneumothorax. Heart/Mediastinum: Unremarkable. No cardiomegaly. Bones/joints: Unremarkable. Endotracheal tube with its tip above the juice. 07/22/2020head CT: No acute intracranial abnormality. 07/22/2020 0600CXR: Endotracheal tube as before and new nasogastric tube seen with its tip off the field well into the stomach. Otherwise negative. 07/23/2020 0701CXR: No acute pulmonary disease. 07/23/2020iver ultrasound Negative right upper quadrant ultrasound. PROGNOSIS: Fair ACTIVITY: As tolerated. DIET: Regular DISCHARGE PLAN: Discharge home. DISCHARGE INSTRUCTIONS: 1. Please follow-up with PCP within 2 weeks. 2. Remain compliant with treatment plan and medications 3. Please present to emergency department if any symptoms worsen or if you develop any shortness of breath, chest pain, and or debilitating abdominal pain. ITEMS TO FOLLOWUP ON ON OUTPATIENT: 1. Please follow-up with PCP within 2 weeks. DISCHARGE CONDITION: Stable. TIME SPENT ON DISCHARGE: 35 minutes. Vital Signs/I&Os Vital Signs Date Time Temp Pulse Resp B/P (MAP) Pulse Ox O2 Delivery O2 Flow Rate FiO2 07/24/20 06:00 98.2 64 18 112/62 (79) 99 Room Air 07/22/20 13:00 21 07/21/20 22:15 4.0 I&O- Last 24 Hours up to 6 AM 07/24/20 06:00 Intake Total 1910 ml Output Total 1150 ml Balance 760 ml Laboratory Data Labs 24H Laboratory Tests 2 07/24/20 06:09: Nucleated Red Blood Cells % (auto) 0.0, Anion Gap 7L, Glomerular Filtration Rate > 60.0, Calcium Level 8.7 CBC/BMP Laboratory Tests 07/24/20 06:09 Microbiology Microbiology 07/22/20 Urine Culture - Final, Complete Discharge Medications Scheduled Norelgestromin/Ethin.estradiol (Xulane Patch) 1 Each Patch.tdwk, 1 PATCH TD 1XWK, (Reported) Allergies Coded Allergies: No Known Allergies (Unverified , 03/01/19) GME ATTESTATION GME ATTESTATION My faculty preceptor for this patient encounter was physically present during the encounter and was fully available. All aspects of the patient interview, examination, medical decision making process, and medical care plan development were reviewed and approved by the faculty preceptor. The faculty preceptor is aware and concurs with the plan as stated in the body of this note and will attest to such by his/her cosignature. ATTENDING NOTE I, Jose Angel Lucero, have independently examined this patient and performed my own physical exam, as well as reviewed the documentation and edited where necessary. I have discussed in detail with the resident / student the findings and plan of treatment as documented by the resident / student and edited their note. I agree with their findings and treatment plan and have edited their documentation. I will continue to follow the patient during this hospital stay. Time spent on discharge 35 minutes Jesus Nicolas DO Jul 24, 2020 09:33 JOSE ANGEL LUCERO MD Jul 24, 2020 10:06
== END 2020-07-24 11:29 | disposition home or self-care (01) | DRG 133 ==
LOC: M ED 22:12 → M ICU 07-22 01:50 → M ED INP 07-22 03:13 → M ED 07-22 03:13 → M ICU 07-22 03:14 → M MSPAV 07-22 17:46
PROVIDERS: ADMIT Internal Medicine Pulmonary Disease; ATTEND Internal Medicine
PROC: 0BH17EZ Insertion of Endotracheal Airway into Trachea, Via Natural or Artificial Opening (ICD-10-PCS; principal; 2020-07-21)
PROC: 5A1935Z Respiratory Ventilation, Less than 24 Consecutive Hours (ICD-10-PCS; 2020-07-22)
DX: J96.90 Respiratory failure, unspecified, unspecified whether with hypoxia or hypercapnia (principal); G92 Toxic encephalopathy; E87.0 Hyperosmolality and hypernatremia; E83.42 Hypomagnesemia; F10.129 Alcohol abuse with intoxication, unspecified; F15.121 Other stimulant abuse with intoxication delirium; R50.9 Fever, unspecified

== ENCOUNTER → 2020-08-18 | Outpatient (CLI) | payer OTHER ==
--- NOTE | 2020-08-18 15:06 | REP ---
INDICATION: GEST DATING. COMPARISON: None. TECHNIQUE: Multiple ultrasonographic images of the gravid uterus. FINDINGS: There is an intrauterine gestational sac with a pole. The heart rate is 117 beats per minute. The pole crown-rump length is 0.7 cm. This corresponds to a gestational age of 6 weeks 4 days. The DD is 04/09/2021. Gestational age by LMP is 8 weeks 0 days with an PAVAN of 03/30/2021. There is no subchorionic hematoma. Limited evaluation of the adnexa identified no abnormalities. IMPRESSION: Six week 4 day viable intrauterine gestation. <Electronically signed by Pranay Cervantes > 08/18/20 [id number]
== END ==
LOC: M RAD 14:14
PROVIDERS: ATTEND Nurse Practitioner Family
DX: Z32.01 Encounter for pregnancy test, result positive (principal); Z3A.01 Less than 8 weeks gestation of pregnancy

== ENCOUNTER → 2020-10-28 | Outpatient (REF) | payer OTHER | LOC: M SFHCPLAZ 09:42 | PROVIDERS: ATTEND Physician Assistant | DX: T50.B95A Adverse effect of other viral vaccines, initial encounter (principal) ==

== ENCOUNTER 2021-01-27 23:25 | Emergency (ER) | payer OTHER ==
[~2021-01-27] VITALS: Ht 157.5 cm; Wt 61.4 kg
[2021-01-28 01:08] LABS: HEMATOCRIT 39.7 % (36.0-47.0); HEMOGLOBIN 13.2 g/dl (12.0-15.5); MEAN CORPUSCULAR HEMOGLOBIN 30.1 pg (27.0-33.0); MEAN CORPUSCULAR HGB CONC 33.2 g/dl (32.0-36.5); MEAN CORPUSCULAR VOLUME 90.4 fl (80.0-96.0); PLATELET COUNT, AUTOMATED 337 10^3/uL (150-450); RED BLOOD COUNT 4.39 10^6/uL (4.00-5.40); WHITE BLOOD COUNT 8.6 10^3/uL (4.0-10.0)
[2021-01-28 01:18] LABS: AMPHETAMINES LEVEL URINE NEGATIVE (NEGATIVE); BARBITURATES URINE NEGATIVE (NEGATIVE); BENZODIAZEPINES URINE NEGATIVE (NEGATIVE); CANNABINOIDS URINE POSITIVE (NEGATIVE); COCAINE METABOLITE URINE NEGATIVE (NEGATIVE); METHADONE URINE NEGATIVE (NEGATIVE); OPIATES URINE NEGATIVE (NEGATIVE); PHENCYCLIDINE URINE NEGATIVE (NEGATIVE)
[2021-01-28 01:41] LABS: HCG, SERUM QUALITATIVE NEGATIVE (NEGATIVE)
[2021-01-28 01:53] LABS: ACETAMINOPHEN LEVEL < 2.0 UG/ML (10.0-30.0); ALBUMIN 3.4 GM/DL (3.2-5.2); ALT/SGPT 20 U/L (12-78); BILIRUBIN,DIRECT < 0.1 MG/DL (0.0-0.2); BLOOD UREA NITROGEN 12 MG/DL (7-18); CALCIUM LEVEL 8.5 MG/DL (8.5-10.1); CARBON DIOXIDE LEVEL 22 MEQ/L (21-32); CHLORIDE LEVEL 117 MEQ/L (98-107); ETHYL ALCOHOL (ETHANOL) 0.294 % (0.000-0.010); GLOMERULAR FILTRATION RATE > 60.0 (>60); GLUCOSE, FASTING 106 MG/DL (70-100); POTASSIUM SERUM 3.7 MEQ/L (3.5-5.1); SALICYLATE LEVEL < 1.7 MG/DL (5.0-30.0); SODIUM LEVEL 146 MEQ/L (136-145); THYROID STIMULATING HORMONE 0.638 uIU/ML (0.358-3.740); TOTAL PROTEIN 6.8 GM/DL (6.4-8.2)
[2021-01-28 04:07] LABS: BILIRUBIN,TOTAL < 0.1 MG/DL (0.2-1.0)
[2021-01-28] MEDS ORDERED: DEPO150I IM (10:19)
[2021-01-28] MEDS ORDERED: HOME MED LIST COMPLETE! XX SCH (10:20)
[2021-01-28 14:44] VITALS: BP 130/89
== END 2021-01-28 15:14 | disposition home or self-care (01) ==
LOC: M ED 23:25
DX: Z04.6 Encounter for general psychiatric examination, requested by authority (principal); F10.929 Alcohol use, unspecified with intoxication, unspecified; Z79.3 Long term (current) use of hormonal contraceptives

== ENCOUNTER 2021-03-01 21:24 | Emergency (ER) | payer OTHER ==
[~2021-03-01] VITALS: Ht 165.1 cm; Wt 55.0 kg
[~2021-03-01 21:24] MED LIST changes: +DEPO150I IM
[2021-03-01 21:25] VITALS: BP 155/94
[2021-03-01] MEDS ORDERED: NORE1PAT (21:53)
== END 2021-03-02 00:27 | disposition left against medical advice (07) ==
LOC: M ED 21:24
DX: Z53.21 Procedure and treatment not carried out due to patient leaving prior to being seen by health care provider (principal)

== ENCOUNTER → 2021-03-25 | Outpatient (REF) | payer OTHER ==
[~2021-03-25] MED LIST changes: +NORE1PAT
== END ==
LOC: M LAB REF 11:08
PROVIDERS: ATTEND Physician Assistant
DX: R05.9 Cough, unspecified (principal); R50.9 Fever, unspecified

== ENCOUNTER 2021-05-02 17:34 | Emergency (ER) | payer OTHER ==
[~2021-05-02] VITALS: Ht 165.1 cm; Wt 57.9 kg
--- OUTSIDE RECORDS SUMMARY | 2021-05-02 17:41 | CCD ---
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
--- OUTSIDE RECORDS SUMMARY | 2021-05-02 17:41 | CCD | Continuity of Care Document ---
Author Author [facility] Organization [facility] Address Unknown Phone Unavailable Care Team Providers Care Billet Checker Name Role Phone Jigna Phillips MD Unavailable Unavailable Allergies, Adverse Reactions, Alerts Substance Reaction Status Criticality Penicillins Nausea/Vomit ing Active No Information Medications Medication Instructions Dosage Effective Dates (start - stop) Sta tus Comments medroxyprogesterone 150 mg/mL intramuscular suspension IM every 10-13 weeks - Active Xulane 150 mcg-35 mcg/24 hr transdermal patch apply 1 patch by transdermal route every week x 3 weeks then remove x 1 week - 2020 Active nitrofurantoin monohydrate/macrocrystals 100 mg capsule 1 tab po BID x 5 days - No Longer Active Problems Condition Effective Dates (start - stop) Clinical Status C omments Pelvic and perineal pain Urgency of urination Frequency of micturition Dysuria Acute cystitis without hematuria Encounter for ot general cnsl and advice on contraception Encounter for surveillance of injectable contraceptive Other sex counseling Other sex counseling Encntr screen for infections w sexl mode of transmiss Encounter for screening for human immunodeficiency virus Human immunodeficiency virus [HIV] counseling Encounter for oth general cnsl and advice on contraception Encounter for initial prescription of injectable contracep Encounter for elective termination of Inapprop chg quantitav hCG in early Encounter for test, result positive Problems related to unwanted Encounter for elective termination of Failed attempted termination of w/o complication Encounter for ot general cnsl and advice on contraception Enctr srvlnc transdermal patch hormonal contraceptive device Inapprop chg quantitav hCG in early Inapprop chg quantitav hCG in early Encntr for f/u exam aft trtmt for cond oth than malig neoplm Encounter for test, result positive Encounter for ot general cnsl and advice on contraception Problems related to unwanted Encounter for elective termination of Enctr for init prescription of patch hormonal contracep dev Other sex counseling Encounter for test, result positive Precipitous drop in hematocrit Problems related to unwanted Encounter for elective termination of Encounter for ot general cnsl and advice on contraception Other sex counseling Pelvic and perineal pain Encntr screen for infections w sexl mode of transmiss Encntr screen for infections w sexl mode of transmiss Human immunodeficiency virus [HIV] counseling Encounter for test, result negative Encntr for urogynecology physician exam (general) (routine) w/o abn findings Enctr for init prescription of patch hormonal contracep dev Encounter for ot general cnsl and advice on contraception Other sex counseling Other sex counseling Encounter for ot general cnsl and advice on contraception Encounter for removal of intrauterine contraceptive device Enctr srvlnc transdermal patch hormonal contraceptive device Other sex counseling Encounter for ot general cnsl and advice on contraception Encntr screen for infections w sexl mode of transmiss High risk heterosexual behavior Enctr for init prescription of patch hormonal contracep dev Encounter for test, result negative Human immunodeficiency virus [HIV] counseling Pruritus vulvae Unspecified contact dermatitis, unspecified cause Encounter for ot general cnsl and advice on contraception Human immunodeficiency virus [HIV] counseling Encounter for ot general cnsl and advice on contraception Encounter for routine checking of intrauterine contracep dev Encntr for urogynecology physician exam (general) (routine) w/o abn findings Encounter for test, result negative Encounter for ot general cnsl and advice on contraception Encounter for routine checking of intrauterine contracep dev Encounter for insertion of intrauterine contraceptive device High risk heterosexual behavior Encounter for test, result negative Encntr screen for infections w sexl mode of transmiss High risk heterosexual behavior Encounter for ot general cnsl and advice on contraception HIV [...] Provider Providers Copied on Encounter [facility], [address] [place] [address], [id number], [place] tel:[phone] [facility] [place] No Information W manuel Benito. [address] [place], [place], [id number], [place]. tel:[phone] [facility], [address] [place] [address], [id number], [place] tel:[phone] [facility] [place] Pelvic and perineal painUrgency of urinationFrequency of micturitionDysuriaAcute cystitis without hematuriaEncounter for oth general cnsl and advice on contraceptionEncounter for surveillance of injectable contraceptiveOther sex counseling Carlos Manuel Hong. [address] [place] [address], [id number], [place]. tel:[phone] Referring Provider: Melissa Horowitz, [address] [place] [address], [id number]. tel:[phone] [facility], [address] [place] [address], [id number], [place] tel:[phone] [facility] [place] Other sex counselin gEncntr screen for infections w sexl mode of transmissEncounter for screening for human immunodeficiency virusHuman immunodeficiency virus [HIV] counselingEncounter for oth general cnsl and advice on contraceptionEncounter for initial prescription of injectable contracep Rahat Virk. [address] [place], [place], [id number], [place]. tel:[phone] Referring Provider: Stephanie Giang, [address] [place] [address], [id number]. tel:[phone] [facility], [address] [place] [address], [id number], [place] tel:[phone] [facility] [place] No Information Sid Virk. [address] [place] [address], [id number], [place]. tel:[phone] [facility], [address] [place] [address], [id number], [place] tel:[phone] [facility] [place] Encounter for elect tony termination of [place]. [address] [place], [place], [id number]. tel:[phone] Referring Provider: Shanique Zuñiga, [address] [place], [place], [id number]. tel:[phone] [facility], [address] [place] [address], [id number], [place] tel:[phone] [facility] [place] Inapprop chg quanti tav hCG in early Rahat Virk. [address] [place] [address], [id number], [place]. tel:[phone] Referring Provider: Stephanie Giang, [address] [place] [address], [id number]. tel:[phone] Provider: ANUSHKA Nurse/[place]. [facility], [address] [place] [address], [id number], [place] tel:[phone] [facility] [place] Encounter for pregn evelina test, result positiveProblems related to unwanted pregnancyEncounter for elective termination of pregnancyFailed attempted termination of w/o complicationEncounter for oth general cnsl and advice on contraceptionEnctr srvlnc transdermal patch hormonal contraceptive device Carlos Manuel Hong. [address] [place] [address], [id number], [place]. tel:[phone] Referring Provider: Melissa Horowitz, [address] [place] [address], [id number]. tel:[phone] [facility], [address] [place] [address], [id number], [place] tel:[phone] [facility] [place] Inapprop chg quanti tav hCG in early Carlos Manuel Hong. [address] [place], [place], [id number], [place]. tel:[phone] Consulting Provider: ANUSHKA Nurse/MINNA. [facility], [address] [place] [address], [id number], [place] tel:[phone] [facility] chg quanti tav hCG in early pregnancyEncntr for f/u exam aft trtmt for cond oth than malig neoplm Carlos Manuel Hong. [address] [place], [place], [id number], [place]. tel:[phone] Referring Provider: Melissa Horowitz, [address] [place] [address], [id number]. tel:[phone] Provider: ANUSHKA Nurse/MINNA. [facility], [address] [place] [address], [id number], [place] tel:[phone] [facility] Encounter for pregn evelina test, result positiveEncounter for oth general cnsl and advice on contraceptionProblems related to unwanted pregnancyEncounter for elective termination of Enctr for init prescription of patch hormonal contracep devOther sex counseling Rahat Virk. [address] [place] [address], [id number], [place]. tel:[phone] Referring Provider: Stephanie Giang, [address] [place] [address], [id number]. tel:[phone] [facility], [address] [place] [address], [id number], [place] tel:[phone] [facility] Encounter for pregn evelina test, result positivePrecipitous drop in hematocritProblems related to unwanted pregnancyEncounter for elective termination of pregnancyEncounter for oth general cnsl and advice on contraceptionOther sex counselingPelvic and perineal painEncntr screen for infections w sexl mode of transmiss Carlos Manuel Hong. [address] [place] [address], [id number], [place]. tel:[phone] Referring Provider: Melissa Horowitz, [address] [place] [address], [id number]. tel:[phone] [facility], [address] [place] [address], [id number], [place] tel:[phone] [facility] [place] Encntr screen for i nfections w sexl mode of transmissHuman immunodeficiency virus [HIV] counselingEncounter for test, result negativeEncntr for urogynecology physician exam (general) (routine) w/o abn findingsEnctr for init prescription of patch hormonal contracep devEncounter for oth general cnsl and advice on contraceptionOther sex counseling Rukhsana Hamm. [address] [place] [address], [id number], [place]. tel:[phone] Referring Provider: Noris Milian, [address] [place] [address], [id number]. tel:[phone] [facility], [address] [place] [address], [id number], [place] tel:[phone] [facility] Other sex counselin gEncounter for oth general cnsl and advice on contraceptionEncounter for removal of intrauterine contraceptive deviceEnctr srvlnc transdermal patch hormonal contraceptive device Rukhsana Hamm. [address] [place], [place], [id number], [place]. tel:[phone] Referring Provider: Noris Milian, [address] [place] [address], [id number]. tel:[phone] [facility], [address] [place] [address], [id number], [place] tel:[phone] [facility] [place] Other sex counselin gEncounter for oth general cnsl and advice on contraceptionEncntr screen for infections w sexl mode of transmissHigh risk heterosexual behaviorEnctr for init prescription of patch hormonal contracep devEncounter for test, result negativeHuman immunodeficiency virus [HIV] counseling Rukhsana Hamm. [address] [place] [address], [id number], [place]. tel:[phone] Referring Provider: Noris Milian, [address] [place] [address], [id number]. tel:[phone] [facility], [address] [place] [address], [id number], [place] tel:[phone] [facility] [place] Pruritus vulvaeUnsp ecified contact dermatitis, unspecified causeEncounter for oth general cnsl and advice on contraception King Judith. [address] [place], [place], [id number]. tel:[phone] Referring Provider: Judith Bassett, [address] [place] [address], [id number]. tel:[phone] [facility], [address] [place] [address], [id number], [place] tel:[phone] [facility] [place] Human immunodeficie ncy virus [HIV] counselingEncounter for oth general cnsl and advice on contraceptionEncounter for routine checking of intrauterine contracep devEncntr for urogynecology physician exam (general) (routine) w/o abn findings [place]. [address] [place], [place], [id number]. tel:[phone] Referring Provider: Judith Bassett, [address] [place] [address], [id number]. tel:[phone] [facility], [address] [place] [address], [id number], [place] tel:[phone] [facility] [place] Encounter for pregn evelina test, result negativeEncounter for oth general cnsl and advice on contraceptionEncounter for routine checking of intrauterine contracep devEncounter for insertion of intrauterine contraceptive deviceHigh risk heterosexual behavior Dave Rocha. [address] [place] [address], [address] [place] [address], . tel:[phone] Referring Provider: Josefina Dallas, [address] [place] [address], [id number]. tel:[phone] [facility], [address] [place] [address], [id number], tel:[phone] [facility] Encounter for pregn evelina test, result negativeEncntr screen for infections w sexl mode of transmissHigh risk heterosexual behaviorEncounter for oth general cnsl and advice on contraception Zena Doran. [address] [place] [address], [id number], . tel:[phone] Referring Provider: Andreea Freitas, [address] [place] [address], [address] [place] [address]. tel:[phone] [facility], [address] [place] [address], [address] [place] [address], [place] tel:[phone] [facility] HIV CounselingPT, N egativeBVFamily Planning Counseling Dave Rocha. [address] [place] [address], [address] [place] [address], . tel:[phone] Family History Family Member Diagnosis Age At [...] type Covered alliance party ID Authorization(s ) [facility] CI [id number] Social History Type Description Quantity Date Captured [...] counseling com pleted Appointment Sally Mckeon BOOKED Appointment Sally Mckeon BOOKED History Of Present [...] Date No Information Medical Equipment Description Device [place] Device Identifier Effective Leoncio es (start - stop) Status No Information Mental Status Date Cognitive Assessment No Information Health Concerns Observation Date No Information Concern Status Date No Information Physical Examination Exam Findings Details No Information
--- OUTSIDE RECORDS SUMMARY | 2021-05-02 17:41 | CCD | Continuity of Care Document ---
Author Author [facility] Organization [facility] Address Unknown Phone Unavailable Care Team Providers Care System Administration Advisor Name Role Phone Noris Garrett Unavailable Unavailable Allergies, Adverse Reactions, Alerts Substance Reaction Status Criticality Penicillins Nausea/Vomit ing Active No Information Medications Medication Instructions Dosage Effective Dates (start - stop) Sta tus Comments doxycycline monohydrate 100 mg tablet 1 tab po bid x 14days (#28 ) - Active metronidazole 500 mg tablet 1 tab po bid x 14d (#28) - Active Depo-Provera 150 mg/mL intramuscular suspension IM every 10-13 w eeks - Active medroxyprogesterone 150 mg/mL intramuscular suspension IM every 10-13 weeks - Active Xulane 150 mcg-35 mcg/24 hr transdermal patch apply 1 patch by transdermal route every week x 3 weeks then remove x 1 week - 2020 Active metronidazole 500 mg tablet 1 tab po bid x 14d (#28) - No Longer Active ceftriaxone 500 mg solution for injection Inject 500 m g total once with 1ml of 1% lidocaine administer to pt in clinic - No Longer Active Problems Condition Effective Dates (start - stop) Clinical Status C omments Encounter for surveillance of injectable contraceptive Encounter for test, result negative Other sex counseling Encntr screen for infections w sexl mode of transmiss Encounter for oth general cnsl and advice on contraception Pelvic and perineal pain Female pelvic inflammatory disease, unspecified Pelvic and perineal pain Urgency of urination Frequency of micturition Dysuria Acute cystitis without hematuria [facility] general [facility]l and advice on contraception Encounter for surveillance of injectable contraceptive Other sex counseling Other sex counseling Encntr screen for infections w sexl mode of transmiss Encounter for screening for human immunodeficiency virus Human immunodeficiency virus [HIV] counseling Encounter for [facility] general cnsl and advice on contraception Encounter for initial prescription of injectable contracep Encounter for elective termination of Inapprop chg quantitav hCG in early Encounter for test, result positive Problems related to unwanted Encounter for elective termination of Failed attempted termination of w/o complication Encounter for [facility] general cnsl and advice on contraception Enctr srvlnc transdermal patch hormonal contraceptive device Inapprop chg quantitav hCG in early Inapprop chg quantitav hCG in early Encntr for f/u exam aft trtmt for cond [facility] neopl Encounter for test, result positive Encounter for [facility] general cnsl and advice on contraception Problems related to unwanted Encounter for elective termination of Enctr for init prescription of patch hormonal contracep dev Other sex counseling Encounter for test, result positive Precipitous drop in hematocrit Problems related to unwanted Encounter for elective termination of Encounter for [facility] general cnsl and advice on contraception Other sex counseling Pelvic and perineal pain Encntr screen for infections w sexl mode of transmiss Encntr screen for infections w sexl mode of transmiss Human immunodeficiency virus [HIV] counseling Encounter for test, result negative 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 Enctr for init prescription of patch hormonal contracep dev Encounter for [facility] general cnsl and advice on contraception Other sex counseling Other sex counseling Encounter for [facility] general cnsl and advice on contraception Encounter for removal of intrauterine contraceptive device Enctr srvlnc transdermal patch hormonal contraceptive device Other sex counseling Encounter for [facility] general cnsl and advice on contraception Encntr screen for infections w sexl mode of transmiss High risk heterosexual behavior Enctr for init prescription of patch hormonal contracep dev Encounter for test, result negative Human immunodeficiency virus [HIV] counseling Pruritus vulvae Unspecified contact dermatitis, unspecified cause Encounter for [facility] general cnsl and advice on contraception Human immunodeficiency virus [HIV] counseling Encounter for [facility] general cnsl and advice on contraception Encounter for routine checking of intrauterine contracep dev 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 150 Mg Nurse/CA 021 Results Test Name Date and Time Measure Units Reference Range Abnormal Flag St atus Comments Panel Description: Wet Prep Final Wet Prep 16:53:36 Hyphae/Wendie: no; Budding yeast: no; Trich: no; Clue cells: no; WBCs: no; Amine/Whiff test: negative Final Panel Description: High Sensitivity Urine Test Fi nal High Sensitivity Urine Test 15:12:11 N egativeLot: [id number]: 07/25/2022 Final Advance Directives Directive Yes / No Effective Date File Name No Information Encounters Encounter Description Practice Location Reason(s) For Visit Diagnose s Date Provider Providers Copied on Encounter OFFICE VISIT, EST [facility], [address], [place], [id number], [place] tel:[phone] [facility] [place] Painful Intercours e (chief complaint)Depo (chief complaint) Encounter for surveillance of injectable contraceptiveEncounter for test, result negativeOther sex counselingEncntr screen for infections w sexl mode of transmissEncounter for oth general cnsl and advice on contraceptionPelvic and perineal painFemale pelvic inflammatory disease, unspecified Rukhsana Hamm. [address] [place], [place], [id number], [place]. tel:[phone] Referring Provider: Noris Milian, [address] [place] [address], [id number]. tel:[phone] [facility], [address] [place] [address], [id number], [place] tel:[phone] [facility] [place] Pelvic and perineal painUrgency of urinationFrequency of micturitionDysuriaAcute cystitis without hematuriaEncounter for oth general cnsl and advice on contraceptionEncounter for surveillance of injectable contraceptiveOther sex counseling Carlos Manuel Hong. [address] [place] [address], [id number], [place]. tel:[phone] Referring Provider: Melissa Horowitz, [address] [place] [address], [id number]. tel:[phone] [facility], [address] [place] [address], [id number], [place] tel:[phone] [facility] [place] Other sex counselin gEncntr screen for infections w sexl mode of transmissEncounter for screening for human immunodeficiency virusHuman immunodeficiency virus [HIV] counselingEncounter for oth general cnsl and advice on contraceptionEncounter for initial prescription of injectable contracep Rahat Virk. [address] [place], [place], [id number], [place]. tel:[phone] Referring Provider: Stephanie Giang, [address] [place] [address], [id number]. tel:[phone] [facility], [address] [place] [address], [id number], [place] tel:[phone] [facility] [place] No Information Sid Virk. [address] [place] [address], [id number], [place]. tel:[phone] [facility], [address] [place] [address], [id number], [place] tel:[phone] [facility] [place] Encounter for elect tony termination of [place]. [address] [place], [place], [id number]. tel:[phone] Referring Provider: Shanique Zuñiga, [address], [place], [id number]. tel:[phone] [facility], [address] [place] [address], [id number], [place] tel:[phone] [facility] [place] Inapprop chg quanti tav hCG in early Rahat Virk. [address], [place], [id number], [place]. tel:[phone] Referring Provider: Stephanie Giang, [address] [place] [address], [id number]. tel:[phone] Provider: ANUSHKA Nurse/CA. [facility], [address] [place] [address], [id number], [place] tel:[phone] [facility] [place] Encounter for pregn evelina test, result positiveProblems related to unwanted pregnancyEncounter for elective termination of pregnancyFailed attempted termination of w/o complicationEncounter for oth general cnsl and advice on contraceptionEnctr srvlnc transdermal patch hormonal contraceptive device Carlos Manuel Hong. [address] [place] [address], [id number], [place]. tel:[phone] Referring Provider: Melissa Horowitz, [address] [place] [address], [id number]. tel:[phone] [facility], [address] [place] [address], [id number], [place] tel:[phone] [facility] [place] Inapprop chg quanti tav hCG in early Carlos Manuel Hong. [address] [place], [place], [id number], [place]. tel:[phone] Consulting Provider: ANUSHKA Nurse/MINNA. [facility], [address], [place], [id number], [place] tel:[phone] [facility] Inapprop chg quanti tav hCG in early pregnancyEncntr for f/u exam aft trtmt for cond oth than malig neoplm Carlos Manuel Hong. [address] [place], [place], [id number], [place]. tel:[phone] Referring Provider: Melissa Horowitz, [address] [place] [address], [id number]. tel:[phone] Provider: ANUSHKA Nurse/MINNA. [facility], [address] [place] [address], [id number], [place] tel:[phone] [facility] Encounter for pregn evelina test, result positiveEncounter for oth general cnsl and advice on contraceptionProblems related to unwanted pregnancyEncounter for elective termination of Enctr for init prescription of patch hormonal contracep devOther sex counseling Rahat Virk. [address] [place], [place], [id number], [place]. tel:[phone] Referring Provider: Stephanie Giang, [address] [place] [address], [id number]. tel:[phone] [facility], [address] [place] [address], [id number], [place] tel:[phone] [facility] Encounter for pregn evelina test, result positivePrecipitous drop in hematocritProblems related to unwanted pregnancyEncounter for elective termination of pregnancyEncounter for oth general cnsl and advice on contraceptionOther sex counselingPelvic and perineal painEncntr screen for infections w sexl mode of transmiss Carlos Manuel Hong. [address] [place] [address], [id number], [place]. tel:[phone] Referring Provider: Melissa Horowitz, [address], [place], [id number]. 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 [address] [place] [address], [id number], . tel:[phone] Referring Provider: Noris Milian, [address] [place] [address], [id number]. tel:[phone] [facility], [address] [place] [address], [id number], [place] tel:[phone] [facility] [place] Other sex counselin gEncounter for oth general cnsl and advice on contraceptionEncounter for removal of intrauterine contraceptive deviceEnctr srvlnc transdermal patch hormonal contraceptive device Rukhsana Hamm. [address] [place], [place], [id number], [place]. tel:[phone] Referring Provider: Noris Milian, [address] [place] [address], [id number]. tel:[phone] [facility], [address] [place] [address], [id number], [place] tel:[phone] [facility] [place] Other sex counselin gEncounter for oth general cnsl and advice on contraceptionEncntr screen for infections w sexl mode of transmissHigh risk heterosexual behaviorEnctr for init prescription of patch hormonal contracep devEncounter for test, result negativeHuman immunodeficiency virus [HIV] counseling Rukhsana Hamm. [address] [place] [address], [id number], [place]. tel:[phone] Referring Provider: Noris Milian, [address] [place] [address], [id number]. tel:[phone] [facility], [address] [place] [address], [id number], [place] tel:[phone] [facility] [place] Pruritus vulvaeUnsp ecified contact dermatitis, unspecified causeEncounter for oth general cnsl and advice on contraception King Judith. [address] [place], [place], [id number]. tel:[phone] Referring Provider: Judith Bassett, [address] [place] [address], [id number]. 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 [address] [place], [place], [id number]. tel:[phone] Referring Provider: Judith Bassett, [address] [place] [address], [id number]. tel:[phone] [facility], [address] [place] [address], [id number], [place] tel:[phone] [facility] [place] Encounter for pregn evelina test, result negativeEncounter for oth general cnsl and advice on contraceptionEncounter for routine checking of intrauterine contracep devEncounter for insertion of intrauterine contraceptive deviceHigh risk heterosexual behavior Dave Rocha. [address] [place] [address], [address] [place] [address], . tel:[phone] Referring Provider: Josefina [place], [address] [place] [address], [address] [place] [address]. tel:[phone] [facility], [address] [place] [address], [address] [place] [address], tel:[phone] [facility] Encounter for pregn evelina test, result negativeEncntr screen for infections w sexl mode of transmissHigh risk heterosexual behaviorEncounter for oth general cnsl and advice on contraception Zena Doran. [address] [place] [address], [address] [place] [address], . tel:[phone] Referring Provider: Andreea Freitas, [address] [place] [address], [id number]. tel:[phone] [facility], [address] [place] [address], [address] [place] [address], tel:[phone] [facility] HIV CounselingPT, N egativeBVFamily Planning Counseling Dave Josefina. [address] [place] [address], [address] [place] [address], . tel:[phone] Family History Family Member Diagnosis Age At [...] Unspecified Payers Payer name Insurance type Covered constitution party ID Authorization(s ) [id number] Social History Type Description Quantity Date Captured Comments Alcohol Use Details Unknown Caffeine Use Details Unknown Tobacco Use Status Smoking Status Light tobacco smoker Sex Female Vital Signs Date / Time: Height Weight BMI Pulse Rate Blood Pressure Temperatu re Respiratory Rate Body Surface Area Head Circumference BMI percentile Pulse Ox In haled Ox 3:10 PM 63.00 in 121.00 lbs 21.43 kg/meter(2) 108/72 m m[Hg] Chief Complaint And Reason For Visit Most recent encounter only, dated '04/12/2021 14:50'. Painful Toast (chief complaint) Depo (chief complaint) Reason For Referral Reason For [...] Dates (start - stop) Sta tus Comments metronidazole 500 mg tablet 1 tab po bid x 14d (#28) - No Longer Active Instructions Date Instruction Additional Informati on No Information Assessments Type Assessment Date assessment Encounter for surveillance of injectable contraceptive assessment Encounter for test, result neg ative assessment Other sex counseling assessment Encntr screen for infections w sexl mode of transmiss assessment Encounter for oth general cnsl and advic e on contraception assessment Pelvic and perineal pain assessment Female pelvic inflammatory disease, unsp ecified Goals Health Concern Goal Type Priority Status Date No Information Medical Equipment Description Device [place] Device Identifier Effective Leoncio es (start - stop) Status No Information Mental Status Date Cognitive Assessment No Information Health Concerns Observation Date No Information Concern Status Date No Information Physical Examination Exam Findings Details Neurological Normal Level of consciousne ss - Normal. Orientation - Normal. Genitourinary Normal Urethral meatus - No rmal. Urethra - Normal. External genitalia - Normal. Glands - Normal. Perineum - Normal. Anus - Normal. Uterus - Normal. Adnexa - Normal. Genitourinary * Vagina - menses. Cer vix - not visualized and discomfort on movement. Uterus - Uterine orientation: Ant. Uterus size: normal.
[2021-05-02 17:42] VITALS: BP 139/81
--- OUTSIDE RECORDS SUMMARY | 2021-05-02 17:42 | CCD | Continuity of Care Document ---
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 [address] [place], [place], [id number], [place]. tel:[phone] [facility], [address] [place] [address], [id number], [place] tel:[phone] [facility] [place] Pelvic and perineal painUrgency of urinationFrequency of micturitionDysuriaAcute cystitis without hematuriaEncounter for oth general cnsl and advice on contraceptionEncounter for surveillance of injectable contraceptiveOther sex counseling Carlos Manuel Hong. [address] [place] [address], [id number], [place]. tel:[phone] Referring Provider: Melissa Horowitz, [address] [place] [address], [id number]. tel:[phone] [facility], [address] [place] [address], [id number], [place] tel:[phone] [facility] [place] Other sex counselin gEncntr screen for infections w sexl mode of transmissEncounter for screening for human immunodeficiency virusHuman immunodeficiency virus [HIV] counselingEncounter for oth general cnsl and advice on contraceptionEncounter for initial prescription of injectable contracep Rahat Virk. [address] [place], [place], [id number], [place]. tel:[phone] Referring Provider: Stephanie Giang, [address] [place] [address], [id number]. tel:[phone] [facility], [address] [place] [address], [id number], [place] tel:[phone] [facility] [place] No Information Sid Virk. [address] [place] [address], [id number], [place]. tel:[phone] [facility], [address] [place] [address], [id number], [place] tel:[phone] ANUSHKA [place] Encounter for elect tony termination of [place]. [address] [place], [place], [id number]. tel:[phone] Referring Provider: Shanique Zuñiga, [address] [place], [place], [id number]. tel:[phone] [facility], [address] [place] [address], [id number], [place] tel:[phone] ANUSHKA [place] Inapprop chg quanti tav hCG in early Rahat Virk. [address] [place] [address], [id number], [place]. tel:[phone] Referring Provider: Stephanie Giang, [address] [place] [address], [id number]. tel:[phone] Provider: ANUSHKA Nurse/[place]. [facility], [address] [place] [address], [id number], [place] tel:[phone] ANUSHAK [place] Encounter for pregn evelina test, result positiveProblems related to unwanted pregnancyEncounter for elective termination of pregnancyFailed attempted termination of w/o complicationEncounter for oth general cnsl and advice on contraceptionEnctr srvlnc transdermal patch hormonal contraceptive device Carlos Manuel Hong. [address] [place] [address], [id number], [place]. tel:[phone] Referring Provider: Melissa Horowitz, [address] [place] [address], [id number]. tel:[phone] [facility], [address] [place] [address], [id number], [place] tel:[phone] ANUSHKA [place] Inapprop chg quanti tav hCG in early Carlos Manuel Hong. [address] [place], [place], [id number], [place]. tel:[phone] Consulting Provider: ANUSHKA Nurse/MINNA. [facility], [address] [place] [address], [id number], [place] tel:[phone] [facility] chg quanti tav hCG in early pregnancyEncntr for f/u exam aft trtmt for cond oth than malig neoplm Carlos Manuel Hong. [address] [place], [place], [id number], [place]. tel:[phone] Referring Provider: Melissa Horowitz, [address] [place] [address], [id number]. tel:[phone] Provider: ANUSHKA Nurse/MINNA. [facility], [address] [place] [address], [id number], [place] tel:[phone] [facility] Encounter for pregn evelina test, result positiveEncounter for oth general cnsl and advice on contraceptionProblems related to unwanted pregnancyEncounter for elective termination of Enctr for init prescription of patch hormonal contracep devOther sex counseling Rahat Virk. [address] [place] [address], [id number], [place]. tel:[phone] Referring Provider: Stephanie Giang, [address] [place] [address], [id number]. tel:[phone] [facility], [address] [place] [address], [id number], [place] tel:[phone] [facility] Encounter for pregn evelina test, result positivePrecipitous drop in hematocritProblems related to unwanted pregnancyEncounter for elective termination of pregnancyEncounter for oth general cnsl and advice on contraceptionOther sex counselingPelvic and perineal painEncntr screen for infections w sexl mode of transmiss Carlos Manuel Hong. [address] [place] [address], [id number], [place]. tel:[phone] Referring Provider: Melissa Horowitz, [address] [place] [address], [id number]. tel:[phone] [facility], [address] [place] [address], [id number], [place] tel:[phone] PPNMNY [place] Encntr screen for i nfections w sexl mode of transmissHuman immunodeficiency virus [HIV] counselingEncounter for test, result negativeEncntr for roof painter exam (general) (routine) w/o abn findingsEnctr for init prescription of patch hormonal contracep devEncounter for oth general cnsl and advice on contraceptionOther sex counseling Rukhsana Hamm. [address] [place] [address], [id number], [place]. tel:[phone] Referring Provider: Noris Milian, [address] [place] [address], [id number]. tel:[phone] [facility], [address] [place] [address], [id number], [place] tel:[phone] [facility] Other sex counselin gEncounter for oth general cnsl and advice on contraceptionEncounter for removal of intrauterine contraceptive deviceEnctr srvlnc transdermal patch hormonal contraceptive device Rukhsana Hamm. [address] [place], [place], [id number], [place]. tel:[phone] Referring Provider: Noris Milian, [address] [place] [address], [id number]. tel:[phone] [facility], [address] [place] [address], [id number], [place] tel:[phone] [facility] [place] Other sex counselin gEncounter for oth general cnsl and advice on contraceptionEncntr screen for infections w sexl mode of transmissHigh risk heterosexual behaviorEnctr for init prescription of patch hormonal contracep devEncounter for test, result negativeHuman immunodeficiency virus [HIV] counseling Rukhsana Hamm. [address] [place] [address], [id number], [place]. tel:[phone] Referring Provider: Noris Milian, [address] [place] [address], [id number]. tel:[phone] [facility], [address] [place] [address], [id number], [place] tel:[phone] [facility] [place] Pruritus vulvaeUnsp ecified contact dermatitis, unspecified causeEncounter for oth general cnsl and advice on contraception King Judith. [address] [place], [place], [id number]. tel:[phone] Referring Provider: Judith Bassett, [address] [place] [address], [id number]. tel:[phone] [facility], [address] [place] [address], [id number], [place] tel:[phone] [facility] [place] Human immunodeficie ncy virus [HIV] counselingEncounter for oth general cnsl and advice on contraceptionEncounter for routine checking of intrauterine contracep devEncntr for roof painter exam (general) (routine) w/o abn findings King Judith. [address] [place], [place], [id number]. tel:[phone] Referring Provider: Judith Bassett, [address] [place] [address], [id number]. tel:[phone] [facility], [address] [place] [address], [id number], [place] tel:[phone] [facility] [place] Encounter for pregn evelina test, result negativeEncounter for oth general cnsl and advice on contraceptionEncounter for routine checking of intrauterine contracep devEncounter for insertion of intrauterine contraceptive deviceHigh risk heterosexual behavior Dave Rocha. [address] [place] [address], [address] [place] [address], . tel:[phone] Referring Provider: Josefina [place], [address] [place] [address], [id number]. tel:[phone] [facility], [address] [place] [address], [id number], tel:[phone] [facility] Encounter for pregn evelina test, result negativeEncntr screen for infections w sexl mode of transmissHigh risk heterosexual behaviorEncounter for oth general cnsl and advice on contraception Zena Doran. [address] [place] [address], [id number], . tel:[phone] Referring Provider: Andreea Freitas, [address] [place] [address], [address] [place] [address]. tel:[phone] [facility], [address] [place] [address], [address] [place] [address], [place] tel:[phone] [facility] HIV CounselingPT, N egativeBVFamily Planning Counseling Dave Rocha. [address] [place] [address], [address] [place] [address], . tel:[phone] Family History Family Member Diagnosis Age At [...] type Covered alliance party ID Authorization(s ) [facility] CI [id number] Social History Type Description Quantity Date Captured [...] Date No Information Medical Equipment Description Device [place] Device Identifier Effective Leoncio es (start - stop) Status No Information Mental Status Date Cognitive Assessment No Information Health Concerns Observation Date No Information Concern Status Date No Information Physical Examination Exam Findings Details No Information
--- OUTSIDE RECORDS SUMMARY | 2021-05-02 17:42 | CCD | Continuity of Care Document ---
Author Author [facility] Organization [facility] Address [address] [place] [address] Phone Care Team Providers Care Side Boss Name Role Phone Carlos Manuel LOCAL COORDINATORMelissa Unavailable Unavailable Allergies, Adverse Reactions, Alerts Substance Reaction Status Criticality Penicillins Nausea/Vomit ing Active No Information Medications Medication Instructions Dosage Effective Dates (start - stop) Sta tus Comments nitrofurantoin monohydrate/macrocrystals 100 mg capsule 1 tab po BID x 5 days - Active medroxyprogesterone 150 mg/mL intramuscular suspension IM every 10-13 weeks - Active Xulane 150 mcg-35 mcg/24 hr transdermal patch apply 1 patch by transdermal route every week x 3 weeks then remove x 1 week - 2020 Active Problems Condition Effective Dates (start - stop) Clinical Status C omments Pelvic and perineal pain Urgency of urination Frequency of micturition Dysuria Acute cystitis without hematuria Encounter for oth general cnsl and advice [...] attempted termination of w/o complication Encounter for oth general cnsl and advice on contraception Enctr srvlnc transdermal patch hormonal contraceptive device Inapprop chg quantitav hCG in early Inapprop chg quantitav hCG in early Encntr for f/u exam aft trtmt for cond oth than malfrankie neoplm Encounter for test, result positive Encounter for 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 general cnsl and advice on contraception Other [...] Unspecified contact dermatitis, unspecified cause Encounter for 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 general cnsl and advice on contraception HIV [...] Provider Providers [facility]ied on [facility] [place], [address] [place], [place], [id number], [place] tel:[phone] PP[facility] [place] No Information Elizabeth Hong. [address] [place], [place], [id number], [place]. tel:[phone] [facility] [place], [address] [place], [place], [id number], [place] tel:[phone] PP[facility] [place] Pelvic and perineal painUrgency of urinationFrequency of micturitionDysuriaAcute cystitis without hematuriaEncounter for oth general cnsl and advice on contraceptionEncounter for surveillance of injectable contraceptiveOther sex counseling Carlos Manuel Hong. [address] [place], [place], [id number], [place]. tel:[phone] Referring Provider: Melissa Horowitz, [address] [place], [place], [id number]. tel:[phone] [facility] [place], [address] [place], [place], [id number], [place] tel:[phone] [facility] [place] Other sex counselin gEncntr screen for infections w sexl mode of transmissEncounter for screening for human immunodeficiency virusHuman immunodeficiency virus [HIV] counselingEncounter for oth general cnsl and advice on contraceptionEncounter for initial prescription of injectable contracep Rahat Virk. [address] [place], [place], [id number], [place]. tel:[phone] Referring Provider: Stephanie Giang, [address] [place], [place], [id number]. tel:[phone] [facility] [place], [address] [place], [place], [id number], [place] tel:[phone] [facility] [place] No Information Sid Virk. [address] [place] [address], [id number], [place]. tel:[phone] [facility], [address] [place] [address], [id number], [place] tel:[phone] [facility] Encounter for elect tony termination of [place]. [address] [place] [address], [id number]. tel:[phone] Referring Provider: Shanique Zuñiga, [address] [place] [address], [id number]. tel:[phone] [facility], [address] [place] [address], [id number], [place] tel:[phone] [facility] Inapprop chg quanti tav hCG in early Rahat Virk. [address] [place] [address], [id number], [place]. tel:[phone] Referring Provider: Stephanie Giang, [address] [place] [address], [id number]. tel:[phone] Provider: ANUSHKA Nurse/[place]. [facility], [address] [place] [address], [id number], [place] tel:[phone] [facility] [place] Encounter for pregn evelina test, result positiveProblems related to unwanted pregnancyEncounter for elective termination of pregnancyFailed attempted termination of w/o complicationEncounter for oth general cnsl and advice on contraceptionEnctr srvlnc transdermal patch hormonal contraceptive device Carlos Manuel Hong. [address] [place] [address], [id number], [place]. tel:[phone] Referring Provider: Melissa Horowitz, [address] [place] [address], [id number]. tel:[phone] [facility], [address] [place] [address], [id number], [place] tel:[phone] [facility] Inapprop chg quanti tav hCG in early CarlosM anuel Hong. [address] [place], [place], [id number], [place]. tel:[phone] Consulting Provider: ANUSHKA Nurse/CA. [facility], [address] [place], [place], [id number], [place] tel:[phone] [facility] Inapprop chg quanti tav hCG in early pregnancyEncntr for f/u exam aft trtmt for cond oth than malig neoplm Carlos Manuel Hong. [address] [place], [place], [id number], [place]. tel:[phone] Referring Provider: Melissa Horowitz, [address] [place] [address], [id number]. tel:[phone] Provider: ANUSHKA Nurse/MINNA. [facility], [address] [place] [address], [id number], [place] tel:[phone] [facility] Encounter for pregn evelina test, result positiveEncounter for oth general cnsl and advice on contraceptionProblems related to unwanted pregnancyEncounter for elective termination of Enctr for init prescription of patch hormonal contracep devOther sex counseling Rahat Virk. [address] [place], [place], [id number], [place]. tel:[phone] Referring Provider: Stephanie Giang, [address] [place] [address], [id number]. tel:[phone] [facility], [address] [place] [address], [id number], [place] tel:[phone] [facility] Encounter for pregn evelina test, result positivePrecipitous drop in hematocritProblems related to unwanted pregnancyEncounter for elective termination of pregnancyEncounter for oth general cnsl and advice on contraceptionOther sex counselingPelvic and perineal painEncntr screen for infections w sexl mode of transmiss Carlos Manuel Hong. [address] [place], [place], [id number], [place]. tel:[phone] Referring Provider: Melissa Horowitz, [address] [place], [place], [id number]. tel:[phone] [facility], [address] [place], [place], [id number], [place] tel:[phone] PP[facility] [place] Encntr screen for i nfections w sexl mode of transmissHuman immunodeficiency virus [HIV] counselingEncounter for test, result negativeEncntr for chief pharmacist exam (general) (routine) w/o abn findingsEnctr for init prescription of patch hormonal contracep devEncounter for oth general cnsl and advice on contraceptionOther sex counseling Rukhsana Hamm. [address] [place] [address], [id number], [place]. tel:[phone] Referring Provider: Noris Milian, [address] [place] [address], [id number]. tel:[phone] [facility], [address] [place] [address], [id number], [place] tel:[phone] [facility] [place] Other sex counselin gEncounter for oth general cnsl and advice on contraceptionEncounter for removal of intrauterine contraceptive deviceEnctr srvlnc transdermal patch hormonal contraceptive device Rukhsana Hamm. [address] [place], [place], [id number], [place]. tel:[phone] Referring Provider: Noris Milian, [address] [place], [place], [id number]. tel:[phone] [facility], [address] [place], [place], [id number], [place] tel:[phone] [facility] [place] Other sex counselin gEncounter for oth general cnsl and advice on contraceptionEncntr screen for infections w sexl mode of transmissHigh risk heterosexual behaviorEnctr for init prescription of patch hormonal contracep devEncounter for test, result negativeHuman immunodeficiency virus [HIV] counseling Rukhsana Hamm. [address] [place] [address], [id number], [place]. tel:[phone] Referring Provider: Noris Milian, [address] [place] [address], [id number]. tel:[phone] [facility], [address] [place] [address], [id number], [place] tel:[phone] ALLYNY [place] Pruritus vulvaeUnsp ecified contact dermatitis, unspecified causeEncounter for oth general cnsl and advice on contraception King Judith. [address] [place], [place], [id number]. tel:[phone] Referring Provider: Judith Bassett, [address] [place], [place], [id number]. tel:[phone] [facility], [address] [place] [address], [id number], [place] tel:[phone] PPMAHOGANY [place] Human immunodeficie ncy virus [HIV] counselingEncounter for oth general cnsl and advice on contraceptionEncounter for routine checking of intrauterine contracep devEncntr for chief pharmacist exam (general) (routine) w/o abn findings King Judith. [address] [place], [place], [id number]. tel:[phone] Referring Provider: Judith Bassett, [address] [place], [place], [id number]. tel:[phone] [facility], [address] [place] [address], [id number], [place] tel:[phone] PPBANDARNY [place] Encounter for pregn evelina test, result negativeEncounter for oth general cnsl and advice on contraceptionEncounter for routine checking of intrauterine contracep devEncounter for insertion of intrauterine contraceptive deviceHigh risk heterosexual behavior Dave Rocha. [address] [place] [address], [id number], . tel:[phone] Referring Provider: Josefina [place], [address] [place] [address], [id number]. tel:[phone] [facility], [address] [place] [address], [id number], [place] tel:[phone] [facility] Encounter for pregn evelina test, result negativeEncntr screen for infections w sexl mode of transmissHigh risk heterosexual behaviorEncounter for oth general cnsl and advice on contraception Zena Doran. [address] [place] [address], [id number], [place]. tel:[phone] Referring Provider: Andreea Freitas, [address] [place] [address], [id number]. tel:[phone] [facility], [address] [place] [address], [id number], [place] tel:[phone] [facility] HIV CounselingPT, N egativeBVFamily Planning Counseling Dave Rocha. [address] [place] [address], [id number], [place]. tel:[phone] Family History Family Member Diagnosis Age At [...] type Covered alliance party ID Authorization(s ) [facility] CI [id number] Social History Type Description Quantity Date Captured [...] cessation counseling com pleted Appointment Sally Mckeon -STI Testing BOOKED Appointment Sally Mckeon BOOKED Appointment Sally Mckeon [...] Date No Information Medical Equipment Description Device [place] Device Identifier Effective Leoncio es (start - stop) Status No Information Mental Status Date Cognitive Assessment No Information Health Concerns Observation Date No Information Concern Status Date No Information Physical Examination Exam Findings Details No Information
--- OUTSIDE RECORDS SUMMARY | 2021-05-02 17:42 | CCD | Continuity of Care Document ---
Author Author [facility] Organization [facility] Address Unknown Phone Unavailable Care Team Providers Care Fashion Artist Name Role Phone Dwello Stephanie OLIVER Unavailable [...] remove x 1 week - 2020 Active Xulane 150 mcg-35 mcg/24 hr transdermal patch Xulane 1 patch per week x 3 weeks then remove x 1 week - No Longer Active Xulane 150 mcg-35 mcg/24 hr transdermal patch Xulane 1 patch per week x 3 weeks then remove x 1 week - No Longer Active Problems Condition Effective Dates (start - stop) Clinical Status C omments Other sex counseling Encntr screen for infections [...] Encounter for test, result negative Encntr for animal feeder exam (general) (routine) w/o abn findings Enctr [...] Unspecified contact dermatitis, unspecified cause Encounter for [facility] cnsl and advice on contraception Human immunodeficiency virus [HIV] counseling Encounter for [facility] cns[facility] and advice on contraception Encounter for routine checking of intrauterine contracep dev Encntr for animal feeder exam (general) (routine) w/o abn findings Encounter for test, result negative Encounter for ot general cnsl and advice on contraception Encounter for routine checking of intrauterine contracep dev Encounter for insertion of intrauterine contraceptive device High risk heterosexual behavior Encounter for test, result negative Encntr screen for infections w sexl mode of transmiss High risk heterosexual behavior Encounter for [facility] cnsl and advice on contraception HIV [...] Provider Providers Cop[facility] on [facility] [place], [address] [place] [address], [id number], [place] tel:[phone] ANUSHKA Connelly Other sex counselin gEncntr screen for infections w sexl mode of transmissEncounter for screening for human immunodeficiency virusHuman immunodeficiency virus [HIV] counselingEncounter for oth general cnsl and advice on contraceptionEncounter for initial prescription of injectable contracep Rahat Virk. [address] [place], [place], [id number], [place]. tel:[phone] Referring Provider: Stephanie Giang, [address] [place] [address], [id number]. tel:[phone] [facility] [place], [address] [place] [address], [id number], [place] tel:[phone] ANUSHKA Connelly No Information D wello Stephanie Virk. [address] [place] [address], [id number], [place]. tel:[phone] [facility], [address] [place] [address], [id number], [place] tel:[phone] ANUSHKA Connelly Encounter for elect tony termination of [place]. [address] [place] [address], [id number]. tel:[phone] Referring Provider: Shanique Zuñiga, [address] [place] [address], [id number]. tel:[phone] [facility] [place], [address] [place] [address], [id number], [place] tel:[phone] ANUSHKA Connelly Inapprop chg quanti tav hCG in early Rahat Virk. [address] [place], [place], [id number], [place]. tel:[phone] Referring Provider: Stephanie Giang, [address] [place] [address], [id number]. tel:[phone] Provider: ANUSHKA Nurse/CAAbi [facility], [address] [place] [address], [id number], [place] tel:[phone] ANKITATXALBER Connelly Encounter for pregn evelina test, result positiveProblems related to unwanted pregnancyEncounter for elective termination of pregnancyFailed attempted termination of w/o complicationEncounter for oth general cnsl and advice on contraceptionEnctr srvlnc transdermal patch hormonal contraceptive device Carlos Manuel Hong. [address] [place] [address], [id number], [place]. tel:[phone] Referring Provider: Melissa Horowitz, [address] [place] [address], [id number]. tel:[phone] [facility], [address] [place] [address], [id number], [place] tel:[phone] [facility] Inapprop chg quanti tav hCG in early Carlos Manuel Hong. [address] [place] [address], [id number], [place]. tel:[phone] Consulting Provider: ANUSHKA Nurse/ [facility], [address] [place] [address], [id number], [place] tel:[phone] [facility] Connelly Inapprop chg quanti tav hCG in early pregnancyEncntr for f/u exam aft trtmt for cond oth than malig neoplm Carlos Manuel Hong. [address] [place] [address], [id number], [place]. tel:[phone] Referring Provider: Melissa Horowitz, [address] [place] [address], [id number]. tel:[phone] Provider: ANUSHKA [facility]/ [facility], [address] [place] [address], [id number], [place] tel:[phone] PPNCNY Connelly Encounter for pregn evelina test, result positiveEncounter for oth general cnsl and advice on contraceptionProblems related to unwanted pregnancyEncounter for elective termination of Enctr for init prescription of patch hormonal contracep devOther sex counseling Rahat Stephanieniyah Virk. [address] [place] [address], [id number], [place]. tel:[phone] Referring Provider: Stephanie Giang, [address] [place] [address], [id number]. tel:[phone] [facility], [address] [place] [address], [id number], tel:[phone] PPNCNY Connelly Encounter for pregn evelina test, result positivePrecipitous drop in hematocritProblems related to unwanted pregnancyEncounter for elective termination of pregnancyEncounter for oth general cnsl and advice on contraceptionOther sex counselingPelvic and perineal painEncntr screen for infections w sexl mode of transmiss Carlos Manuel Hong. [address] [place] [address], [id number], [place]. tel:[phone] Referring Provider: Melissa Horowitz, [address] [place] [address], [id number]. tel:[phone] [facility], [address] [place] [address], [id number], [place] tel:[phone] [facility] Encntr screen for i nfections w sexl mode of transmissHuman immunodeficiency virus [HIV] counselingEncounter for test, result negativeEncntr for animal feeder exam (general) (routine) w/o abn findingsEnctr for init prescription of patch hormonal contracep devEncounter for oth general cnsl and advice on contraceptionOther sex counseling Rukhsana Hamm. [address] [place] [address], [id number], [place]. tel:[phone] Referring Provider: Noris Milian, [address] [place] [address], [id number]. tel:[phone] [facility], [address] [place] [address], [id number], [place] tel:[phone] PPNCNY Connelly Other sex counselin gEncounter for oth general cnsl and advice on contraceptionEncounter for removal of intrauterine contraceptive deviceEnctr srvlnc transdermal patch hormonal contraceptive device Rukhsana Hamm. [address] [place], [place], [id number], [place]. tel:[phone] Referring Provider: Noris Milian, [address] [place] [address], [id number]. tel:[phone] [facility], [address] [place] [address], [id number], [place] tel:[phone] PPNCNY Connelly Other sex counselin gEncounter for oth general cnsl and advice on contraceptionEncntr screen for infections w sexl mode of transmissHigh risk heterosexual behaviorEnctr for init prescription of patch hormonal contracep devEncounter for test, result negativeHuman immunodeficiency virus [HIV] counseling Rukhsana Hamm. [address] [place] [address], [id number], [place]. tel:[phone] Referring Provider: Noris Milian, [address] [place] [address], [id number]. tel:[phone] [facility], [address] [place] [address], [id number], [place] tel:[phone] PPNCNY Connelly Pruritus vulvaeUnsp ecified contact dermatitis, unspecified causeEncounter for oth general cnsl and advice on contraception King Judith. [address] [place], [place], [id number]. tel:[phone] Referring Provider: Judith Bassett, [address] [place], [place], [id number]. tel:[phone] [facility] [place], [address] [place] [address], [id number], [place] tel:[phone] [facility] Human immunodeficie ncy virus [HIV] counselingEncounter for oth general cnsl and advice on contraceptionEncounter for routine checking of intrauterine contracep devEncntr for animal feeder exam (general) (routine) w/o abn findings King Judith. [address] [place], [place], [id number]. tel:[phone] Referring Provider: Judith Bassett, [address] [place], [place], [id number]. tel:[phone] [facility], [address] [place] [address], [id number], [place] tel:[phone] [facility] Encounter for pregn evelina test, result negativeEncounter for oth general cnsl and advice on contraceptionEncounter for routine checking of intrauterine contracep devEncounter for insertion of intrauterine contraceptive deviceHigh risk heterosexual behavior Dave Rocha. [address] [place] [address], [id number], [place]. tel:[phone] Referring Provider: Josefina Dallas, [address] [place] [address], [id number]. tel:[phone] [facility], [address] [place] [address], [id number], [place] tel:[phone] [facility] Encounter for pregn evelina test, result negativeEncntr screen for infections w sexl mode of transmissHigh risk heterosexual behaviorEncounter for oth general cnsl and advice on contraception Zena Doran. [address] [place] [address], [id number], [place]. tel:[phone] Referring Provider: Andreea Freitas, [address] [place], [place], [id number]. tel:[phone] [facility] [address] [place] [address], [id number], tel:[phone] ANUSHKA Connelly HIV CounselingPT, N egativeBVFamily Planning Counseling Dave Rocha. [address] [place] [address], [id number], . tel:[phone] Family History Family Member Diagnosis Age At [...] Unspecified Payers Payer name Insurance type Covered democrat ID Authorization(s ) [facility] CI [id number] Social History Type Description Quantity Date Captured [...] weeks then remove x 1 week - No Longer Active Xulane 150 mcg-35 mcg/24 hr transdermal patch Xulane 1 patch per week x 3 weeks then remove x 1 week - No Longer Active Instructions Date Instruction Additional Informati on No Information Assessments Type Assessment Date No Information Goals Health Concern Goal Type Priority Status Date No Information Medical Equipment Description Device Girard Device Identifier Effective Leoncio es (start - stop) Status No Information Mental Status Date Cognitive Assessment No Information Health Concerns Observation Date No Information Concern Status Date No Information Physical Examination Exam Findings Details No Information
--- OUTSIDE RECORDS SUMMARY | 2021-05-02 17:42 | CCD | Continuity of Care Document ---
Author Author [facility] Organization [facility] Address Unknown Phone Unavailable Care Team Providers Care Water Vessel Captain Name Role Phone Carlos Manuel FOOD BEVERAGE SUPERVISOR, Melissa Hong Unavailable Unavailable Allergies, Adverse Reactions, Alerts Substance [...] exam aft trtmt for cond oth than joycelynig neoplm Encounter for test, result positive Encounter [...] Encounter for test, result negative Encntr for nurse obgyn exam (general) (routine) w/o abn findings Enctr for init prescription of patch hormonal contracep dev Encounter for ot general cnsl and advice on contraception Other sex counseling Other sex counseling Encounter for [facility] general cnsl and advice on [...] Unspecified contact dermatitis, unspecified cause Encounter for [facility] general cnsl and advice on contraception Human immunodeficiency virus [HIV] counseling Encounter for ot general cnsl and advice on contraception Encounter for routine checking of intrauterine contracep dev Encntr for nurse obgyn exam (general) (routine) w/o abn findings Encounter for test, result negative Encounter for ot general cnsl and advice on contraception Encounter for routine checking of intrauterine contracep dev Encounter for insertion of intrauterine contraceptive device High risk heterosexual behavior Encounter for test, result negative Encntr screen for infections w sexl mode of transmiss High risk heterosexual behavior Encounter for [facility] general cnsl and advice on contraception HIV Counseling PT, Negative BV Family Planning Counseling Bacterial vaginosis - Active Procedures Procedure Date URINALYSIS NONAUTO W/O SCOPE OFFICE VISIT, EST URINE CULTURE/COLONY COUNT CVR Blood Pressure CVR Med.Svc. Height/Weight CVR Grinder Machine Knife Setter.Svc. Contraceptive CVR Grinder Machine Knife Setter.Svc. Other CVR Grinder Machine Knife Setter.Svc. STI / H Results Test Name Date and Time Measure Units Reference Range Abnormal Flag St atus Comments Panel Description: Urine Dipstick Final Urine Dipstick 12:24:00 Color: anat; Gluco se: negative; Blood: large; pH: 8.0; Protein: 3+; Nitrite: negative; Leukocytes: large A Final Advance Directives Directive Yes / No Effective Date File Name No Information Encounters Encounter Description Practice Location Reason(s) For Visit Diagnose s Date Provider Providers Copied on Encounter OFFICE VISIT, EST [facility], [address] [place] [address], [id number], tel:[phone] [facility] Urinary Symptoms ( F) (chief complaint) Pelvic and perineal painUrgency of urina tionFrequency of micturitionDysuriaAcute cystitis without hematuriaEncounter for oth general cnsl and advice on contraceptionEncounter for surveillance of injectable contraceptiveOther sex counseling Carlos Manuel Hong. [address] [place] [address], [id number], . tel:[phone] Referring Provider: Melissa Horowitz, [address] [place] [address], [id number]. tel:[phone] [facility] [address] [place] [address], [id number], tel:[phone] [facility] Other sex counselin gEncntr screen for infections w sexl mode of transmissEncounter for screening for human immunodeficiency virusHuman immunodeficiency virus [HIV] counselingEncounter for oth general cnsl and advice on contraceptionEncounter for initial prescription of injectable contracep Rahat Virk. [address] [place] [address], [id number], . tel:[phone] Referring Provider: Stephanie Giang, [address] [place] [address], [id number]. tel:[phone] [facility], [address] [place] [address], [id number], [place] tel:[phone] [facility] No Information Sid Virk. [address] [place] [address], [address] [place] [address], . tel:[phone] [facility], [address] [place] [address], [id number], [place] tel:[phone] [facility] Encounter for elect tony termination of [place]. [address] [place] [address], [id number]. tel:[phone] Referring Provider: Shanique Zuñiga, [address] [place] [address], [address] [place] [address]. tel:[phone] [facility], [address] [place] [address], [address] [place] [address], [place] tel:[phone] [facility] Inapprop chg quanti tav hCG in early Rahat Virk. [address] [place] [address], [id number], [place]. tel:[phone] Referring Provider: Stephanie Giang, [address] [place] [address], [id number]. tel:[phone] Provider: ANUSHKA Nurse/CA. [facility], [address] [place] [address], [id number], [place] tel:[phone] ANKITADEALBER Baxley Encounter for pregn evelina test, result positiveProblems related to unwanted pregnancyEncounter for elective termination of pregnancyFailed attempted termination of w/o complicationEncounter for oth general cnsl and advice on contraceptionEnctr srvlnc transdermal patch hormonal contraceptive device Carlos Manuel Hong. [address] [place] [address], [id number], [place]. tel:[phone] Referring Provider: Melissa Horowitz, [address] [place] [address], [id number]. tel:[phone] [facility], [address] [place] [address], [id number], [place] tel:[phone] [facility] Inapprop chg quanti tav hCG in early Carlos Manuel Hong. [address] [place], [place], [id number], [place]. tel:[phone] Consulting Provider: ANUSHKA Nurse/CA. [facility], [address] [place] [address], [id number], [place] tel:[phone] [facility] Inarop chg quanti tav hCG in early pregnancyEncntr for f/u exam aft trtmt for cond oth than malig neoplm Carlos Manuel Hong. [address] [place], [place], [id number], [place]. tel:[phone] Referring Provider: Melissa Horowitz, [address] [place] [address], [id number]. tel:[phone] Provider: ANUSHKA Nurse/CA. [facility], [address] [place] [address], [id number], [place] tel:[phone] [facility] Encounter for pregn evelina test, result positiveEncounter for oth general cnsl and advice on contraceptionProblems related to unwanted pregnancyEncounter for elective termination of Enctr for init prescription of patch hormonal contracep devOther sex counseling Rahat Virk. [address] [place], [place], [id number], [place]. tel:[phone] Referring Provider: Stephanie Giang, [address] [place] [address], [id number]. tel:[phone] [facility], [address] [place] [address], [id number], [place] tel:[phone] PPDENY Baxley Encounter for pregn evelina test, result positivePrecipitous drop in hematocritProblems related to unwanted pregnancyEncounter for elective termination of pregnancyEncounter for oth general cnsl and advice on contraceptionOther sex counselingPelvic and perineal painEncntr screen for infections w sexl mode of transmiss Carlos Manuel Hong. [address] [place] [address], [id number], [place]. tel:[phone] Referring Provider: Melissa Horowitz, [address] [place] [address], [id number]. tel:[phone] [facility], [address] [place] [address], [id number], [place] tel:[phone] [facility] Encntr screen for i nfections w sexl mode of transmissHuman immunodeficiency virus [HIV] counselingEncounter for test, result negativeEncntr for nurse obgyn exam (general) (routine) w/o abn findingsEnctr for init prescription of patch hormonal contracep devEncounter for oth general cnsl and advice on contraceptionOther sex counseling Rukhsana Hamm. [address] [place] [address], [id number], [place]. tel:[phone] Referring Provider: Noris Milian, [address] [place] [address], [id number]. tel:[phone] [facility], [address] [place] [address], [id number], [place] tel:[phone] [facility] Other sex counselin gEncounter for oth general cnsl and advice on contraceptionEncounter for removal of intrauterine contraceptive deviceEnctr srvlnc transdermal patch hormonal contraceptive device Rukhsana Hamm. [address] [place] [address], [id number], [place]. tel:[phone] Referring Provider: Noris Milian, [address] [place] [address], [id number]. tel:[phone] [facility], [address] [place] [address], [id number], [place] tel:[phone] PPNCNY Baxley Other sex counselin gEncounter for oth general cnsl and advice on contraceptionEncntr screen for infections w sexl mode of transmissHigh risk heterosexual behaviorEnctr for init prescription of patch hormonal contracep devEncounter for test, result negativeHuman immunodeficiency virus [HIV] counseling Rukhsana Hamm. [address] [place] [address], [id number], [place]. tel:[phone] Referring Provider: Noris Milian, [address] [place] [address], [id number]. tel:[phone] [facility], [address] [place] [address], [id number], [place] tel:[phone] ANKITADEALBER Baxley Pruritus vulvaeUnsp ecified contact dermatitis, unspecified causeEncounter for oth general cnsl and advice on contraception King Judith. [address] [place], [place], [id number]. tel:[phone] Referring Provider: Judith Bassett, [address] [place] [address], [id number]. tel:[phone] [facility], [address], [place], [id number], [place] tel:[phone] PPMAHOGANY Baxley Human immunodeficie ncy virus [HIV] counselingEncounter for oth general cnsl and advice on contraceptionEncounter for routine checking of intrauterine contracep devEncntr for nurse obgyn exam (general) (routine) w/o abn findings Serjio Judith. [address] [place], [place], [id number]. tel:[phone] Referring Provider: Judith Bassett, [address] [place], [place], [id number]. tel:[phone] [facility], [address] [place] [address], [id number], [place] tel:[phone] [facility] Encounter for pregn evelina test, result negativeEncounter for oth general cnsl and advice on contraceptionEncounter for routine checking of intrauterine contracep devEncounter for insertion of intrauterine contraceptive deviceHigh risk heterosexual behavior Dave Rocha. [address] [place] [address], [id number], [place]. tel:[phone] Referring Provider: Josefina Dallas, [address] [place] [address], [id number]. tel:[phone] [facility], [address] [place] [address], [id number], [place] tel:[phone] [facility] Encounter for pregn evelina test, result negativeEncntr screen for infections w sexl mode of transmissHigh risk heterosexual behaviorEncounter for oth general cnsl and advice on contraception Zena Doran. [address] [place] [address], [id number], [place]. tel:[phone] Referring Provider: Andreea Freitas, [address] [place] [address], [id number]. tel:[phone] [facility], [address] [place] [address], [id number], tel:[phone] [facility] HIV CounselingPT, N egativeBVFamily Planning Counseling Dave Berkowitzah. [address] [place] [address], [id number], [place]. tel:[phone] Family History Family Member Diagnosis Age At [...] type Covered green party ID Authorization(s ) [facility] CI [id number] Social History Type Description Quantity Date Captured Comments Alcohol Use Details Unknown Caffeine Use Details Unknown Tobacco Use Status Smoking Status Light tobacco smoker Smoking Tobacco Use Details Cigarette: Years Used 1 Cigarette: 3 Cigarettes per day, Pack Year: 0.15 Sex Female Vital Signs Date / Time: Height Weight BMI Pulse Rate Blood Pressure Temperatu re Respiratory Rate Body Surface Area Head Circumference BMI percentile Pulse Ox In haled Ox 12:12 PM 63.00 in 120.40 lbs 21.33 kg/meter(2) 110/6 6 mm[Hg] 12:16 PM 98.00 F Chief Complaint And Reason For Visit Most recent encounter only, dated '03/02/2021 11:45'. Urinary Symptoms (F) (chief complaint) Reason For Referral Reason For [...] Goal Tobacco cessation counseling com pleted Appointment Mike, Sally -LVM To Be In Perso n BOOKED Appointment Sally Mckeon BOOKED Appointment Sally Mckeon BOOKED History Of Present Illness Encounter Date Complaint History Of Present I llness No Information Functional Status Date Functional Assessment No Information Medications Administered Medication Instructions Dosage Effective Dates (start - stop) Sta tus Comments No Information Instructions Date Instruction Additional Informati on No Information Assessments Type Assessment Date assessment Pelvic and perineal pain assessment Urgency of urination assessment Frequency of micturition assessment Dysuria assessment Acute cystitis without hematuria 2020 assessment Encounter for oth general cnsl and advic e on contraception assessment Encounter for surveillance of injectable contraceptive assessment Other sex counseling Goals Health Concern Goal Type Priority Status Date No Information Medical Equipment Description Device [place] Device Identifier Effective Leoncio es (start - stop) Status No Information Mental Status Date Cognitive Assessment Orientation - Oriented to ti me, place, person, situation.Normal Orientation Health Concerns Observation Date No Information Concern Status Date No Information Physical Examination Exam Findings Details Neurological Normal Level of consciousne ss - Normal. Orientation - Normal. Psychiatric Normal Orientation - [place] ed to time, place, person & situation.
--- OUTSIDE RECORDS SUMMARY | 2021-05-02 17:42 | CCD | Continuity of Care Document ---
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 150 Mg Nurse/CA 021 URINE TEST ROUTINE VENIPUNCTURE CVR Blood Pressure CVR Med.Svc. Height/Weight CVR Med.Svc. Method Initiation CVR Cooper Helper.Svc. Contraceptive CVR Cooper Helper.Svc. Other NURSE ONLY INJ. RN/SOLAR ENERGY ADVISOR Only Results Test Name Date and Time Measure Units Reference Range Abnormal Flag St atus Comments Panel Description: High Sensitivity Urine Test Fi nal High Sensitivity Urine Test 11:22:57 N egativeLot: [id number]: 06/27/2022 Final Panel Description: HIV-1/HIV-2 Ag/Ab Final HIV-1/HIV-2 Ag/Ab 00:00:00 HIV-1/2 Non-reactive N Final The HIV Antigen (Ag)/Antibody (Ab) Combo ChemiluminescentMicroparticle Immunoassay (CMIA) is used for the simultaneousdetection of both the HIV-1 p24 Antigen and Antibodyto HIV-1 and for the Antibody to HIV-2.

Performed by:
CDD ([id number])

Panel Description: Syphilis Final Syphilis 00:00:00 JUAN MIGUEL Non-reactive N F inal Infection with T. pallidum (cause of syphilis) unlikely (earlyprimary syphilis cannot be excluded). Requestadditional testing if syphilis is clinically suspected.JUAN MIGUEL: Chemiluminescence immunoassay

Performed by:
CDD ([id number])

Panel Description: Chlamydia trachomatis rRNA [Presence] in Specimen by REMINGTON with probe detection Final Urine CT/GC Combo - CT 00:00:00 Negative N Final Performed by:
CDD ([id number])

Panel Description: Amplified GC - Urine Final Urine CT/GC Combo - GC 00:00:00 Negative N Final : NoThis information has been disclosed to you from confidential records which are protected by law. Privacy laws prohibityou from making any further disclosure of this information without the specific written consent of the person to whom itpertains, or otherwise permitted by law. Any unauthorized further disclosure in violation of the law may result in a fineor fci sentence or both. A general authorization for the release of medical or other information is not, except inlimited circumstances set forth in this part, sufficient authorization for further disclosure.This document contains private and confidential health information protected by state and federal law. If youhave received this document in error, please call the [employer] for CDD at ext [phone] ore-mail [email or web address]

Performed by:
CDD ([id number])

Advance Directives Directive Yes / No Effective Date File Name No Information Encounters Encounter Description Practice Location Reason(s) For Visit Diagnose s Date Provider Providers Copied on Encounter [facility]IT, EST [facility] [address] [place] [address], [address] [place] [address], tel:[phone] [facility] [place] STI Exposure/Screening/Testing (chief complaint) Control (chief complaint) Other sex counselingEncntr screen for infections w sexl mode of transmissEncounter for screening for human immunodeficiency virusHuman immunodeficiency virus [HIV] counselingEncounter for oth general cnsl and advice on contraceptionEncounter for initial prescription of injectable contracep Rahat Virk. [address] [place] [address], [id number], . tel:[phone] Referring Provider: Stephanie Giang, [address] [place] [address], [id number]. tel:[phone] [facility], [address] [place] [address], [id number], tel:[phone] [facility] [place] No Information Sid Virk. [address] [place] [address], [id number], . tel:[phone] [facility], [address] [place] [address], [id number], tel:[phone] [facility] [place] Encounter for elect tony termination of [place]. [address] [place], [place], [id number]. tel:[phone] Referring Provider: Shanique Zuñiga, [address] [place], [place], [id number]. tel:[phone] [facility], [address] [place] [address], [id number], [place] tel:[phone] [facility] [place] Inapprop chg quanti tav hCG in early Rahat Virk. [address] [place], [place], [id number], [place]. tel:[phone] Referring Provider: Stephanie Giang, [address] [place] [address], [id number]. tel:[phone] Provider: ANUSHKA Nurse/CA. [facility], [address] [place] [address], [id number], [place] tel:[phone] [facility] Encounter for pregn evelina test, result positiveProblems related to unwanted pregnancyEncounter for elective termination of pregnancyFailed attempted termination of w/o complicationEncounter for oth general cnsl and advice on contraceptionEnctr srvlnc transdermal patch hormonal contraceptive device Carlos Manuel Hong. [address] [place] [address], [id number], [place]. tel:[phone] Referring Provider: Melissa Horowitz, [address] [place], [place], [id number]. tel:[phone] [facility], [address] [place] [address], [id number], [place] tel:[phone] [facility] [place] Inapprop chg quanti tav hCG in early Carlos Manuel Hong. [address] [place], [place], [id number], [place]. tel:[phone] Consulting Provider: ANUSHKA Nurse/CA. [facility], [address] [place] [address], [id number], [place] tel:[phone] [facility] Inapprop chg quanti tav hCG in early pregnancyEncntr for f/u exam aft trtmt for cond oth than malig neoplm Carlos Manuel Hong. [address] [place], [place], [id number], [place]. tel:[phone] Referring Provider: Melissa Horowitz, [address] [place], [place], [id number]. tel:[phone] Provider: ANUSHKA Nurse/CA. [facility], [address] [place] [address], [id number], [place] tel:[phone] [facility] Encounter for pregn evelina test, result positiveEncounter for oth general cnsl and advice on contraceptionProblems related to unwanted pregnancyEncounter for elective termination of Enctr for init prescription of patch hormonal contracep devOther sex counseling Rahat Virk. [address] [place] [address], [id number], [place]. tel:[phone] Referring Provider: Stephanie Giang, [address] [place] [address], [id number]. tel:[phone] [facility], [address] [place] [address], [id number], [place] tel:[phone] [facility] Encounter for pregn evelina test, result positivePrecipitous drop in hematocritProblems related to unwanted pregnancyEncounter for elective termination of pregnancyEncounter for oth general cnsl and advice on contraceptionOther sex counselingPelvic and perineal painEncntr screen for infections w sexl mode of transmiss Carlos Manuel Hong. [address] [place] [address], [id number], [place]. tel:[phone] Referring Provider: Melissa Horowitz, [address] [place], [place], [id number]. tel:[phone] [facility], [address] [place] [address], [id number], [place] tel:[phone] [facility] [place] Encntr screen for i nfections w sexl mode of transmissHuman immunodeficiency virus [HIV] counselingEncounter for test, result negativeEncntr for database report writer exam (general) (routine) w/o abn findingsEnctr for init prescription of patch hormonal contracep devEncounter for oth general cnsl and advice on contraceptionOther sex counseling Rukhsana Hamm. [address] [place] [address], [id number], . tel:[phone] Referring Provider: Noris Milian, [address] [place] [address], [id number]. tel:[phone] [facility], [address] [place] [address], [id number], [place] tel:[phone] [facility] [place] Other sex counselin gEncounter for oth general cnsl and advice on contraceptionEncounter for removal of intrauterine contraceptive deviceEnctr srvlnc transdermal patch hormonal contraceptive device Rukhsana Hamm. [address] [place] [address], [id number], [place]. tel:[phone] Referring Provider: Noris Milian, [address] [place] [address], [id number]. tel:[phone] [facility], [address] [place] [address], [id number], [place] tel:[phone] [facility] [place] Other sex counselin gEncounter for oth general cnsl and advice on contraceptionEncntr screen for infections w sexl mode of transmissHigh risk heterosexual behaviorEnctr for init prescription of patch hormonal contracep devEncounter for test, result negativeHuman immunodeficiency virus [HIV] counseling Rukhsana Hamm. [address] [place] [address], [id number], [place]. tel:[phone] Referring Provider: Noris Milian, [address] [place] [address], [id number]. tel:[phone] [facility], [address] [place] [address], [id number], [place] tel:[phone] [facility] [place] Pruritus vulvaeUnsp ecified contact dermatitis, unspecified causeEncounter for oth general cnsl and advice on contraception King Judith. [address] [place], [place], [id number]. tel:[phone] Referring Provider: Judith Bassett, [address] [place] [address], [id number]. tel:[phone] [facility], [address] [place] [address], [id number], [place] tel:[phone] [facility] [place] Human immunodeficie ncy virus [HIV] counselingEncounter for oth general cnsl and advice on contraceptionEncounter for routine checking of intrauterine contracep devEncntr for database report writer exam (general) (routine) w/o abn findings King Judith. [address] [place], [place], [id number]. tel:[phone] Referring Provider: Judith Bassett, [address] [place] [address], [id number]. tel:[phone] [facility], [address] [place] [address], [id number], [place] tel:[phone] [facility] [place] Encounter for pregn evelina test, result negativeEncounter for oth general cnsl and advice on contraceptionEncounter for routine checking of intrauterine contracep devEncounter for insertion of intrauterine contraceptive deviceHigh risk heterosexual behavior Dave Rocha. [address] [place] [address], [id number], [place]. tel:[phone] Referring Provider: Josefina Dallas, [address] [place] [address], [id number]. tel:[phone] [facility], [address] [place] [address], [id number], tel:[phone] [facility] Encounter for pregn evelina test, result negativeEncntr screen for infections w sexl mode of transmissHigh risk heterosexual behaviorEncounter for oth general cnsl and advice on contraception Zena Doran. [address] [place] [address], [id number], . tel:[phone] Referring Provider: Andreea Freitas, [address] [place] [address], [id number]. tel:[phone] [facility], [address] [place] [address], [id number], tel:[phone] [facility] HIV CounselingPT, N egativeBVFamily Planning Counseling Dave Josefina. [address] [place] [address], [id number], . tel:[phone] Family History Family Member Diagnosis Age At [...] Insurance type Covered democrat ID Authorization(s ) [facility] CI [id number] Social History Type Description Quantity Date Captured Comments Alcohol Use Details Unknown Caffeine Use Details Unknown Tobacco Use Status Light cigarette smoker (1-9 cigs/day) Smoking Status Light tobacco smoker Smoking Tobacco Use Details Cigarette: Years Used 1 Cigarette: 3 Cigarettes per day, Pack Year: 0.15 Sex Female Vital Signs Date / Time: Height Weight BMI Pulse Rate Blood Pressure Temperatu re Respiratory Rate Body Surface Area Head Circumference BMI percentile Pulse Ox In haled Ox 10:49 AM 63.00 in 127.00 lbs 22.50 kg/meter(2) 111/7 5 mm[Hg] Chief Complaint And Reason For Visit Most recent encounter only, dated '01/25/2021 10:30'. STI Exposure/Screening/Testing (chief complaint) Control (chief complaint) Reason For Referral Reason For [...] No Information Assessments Type Assessment Date assessment Other sex counseling assessment Encntr screen for infections w sexl mode of transmiss assessment Encounter for screening for human immuno deficiency virus assessment Human immunodeficiency virus [HIV] couns eling assessment Encounter for oth general cnsl and advic e on contraception assessment Encounter for initial prescription of in jectable contracep Goals Health Concern Goal Type Priority Status Date No Information Medical Equipment Description Device Roslyn Device Identifier Effective Leoncio es (start - stop) Status No Information Mental Status Date Cognitive Assessment Orientation - Oriented to ti me, place, person, situation.Normal Orientation Health Concerns Observation Date No Information Concern Status Date No Information Physical Examination Exam Findings Details Neurological Normal Level of consciousne ss - Normal. Orientation - Normal. Psychiatric Normal Orientation - Shaniko ed to time, place, person & situation.
--- OUTSIDE RECORDS SUMMARY | 2021-05-02 17:42 | CCD | Continuity of Care Document ---
Author Author [facility] Organization 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 Enctr for init prescription of patch hormonal contracep dev Encounter for [facility] cns[facility] and advice on contraception Other sex counseling Other sex counseling Encounter for [facility] and advice on contraception Encounter for removal of intrauterine contraceptive device Enctr srvlnc transdermal patch hormonal contraceptive device Other sex counseling Encounter for [facility] and advice on contraception Encntr screen for infections w sexl mode of transmiss High risk heterosexual behavior Enctr for init prescription of patch hormonal contracep dev Encounter for test, result negative Human immunodeficiency virus [HIV] counseling Pruritus vulvae Unspecified contact dermatitis, unspecified cause Encounter for [facility] cns[facility] and advice on contraception Human immunodeficiency virus [HIV] counseling Encounter for [facility] cns[facility] and advice on contraception Encounter for routine checking of intrauterine contracep dev 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 Encounter for test, result negative Encounter for [facility] c[facility] and advice on contraception Encounter for routine checking of intrauterine contracep dev Encounter for insertion of intrauterine contraceptive device High risk heterosexual behavior Encounter for test, result negative Encntr screen for infections w sexl mode of transmiss High risk heterosexual behavior Encounter for [facility] and advice on contraception HIV [...] Provider Providers Copied on Encounter [facility] [place], [address] [place] [address], [id number], [place] tel:[phone] [facility] Other sex counselin gEncntr screen for infections w sexl mode of transmissEncounter for screening for human immunodeficiency virusHuman immunodeficiency virus [HIV] counselingEncounter for oth general cnsl and advice on contraceptionEncounter for initial prescription of injectable contracep Rahat Virk. [address] [place], [place], [id number], [place]. tel:[phone] Referring Provider: Stephanie Giang, [address] [place] [address], [id number]. tel:[phone] [facility] [place], [address] [place] [address], [id number], [place] tel:[phone] [facility] No Information D ann-marie Washburna Sully. [address] [place] [address], [id number], [place]. tel:[phone] [facility] [place], [address] [place] [address], [id number], [place] tel:[phone] [facility] No Information D masonstephanie Stephanie Sully. [address] [place] [address], [id number], [place]. tel:[phone] [facility] [place], [address] [place] [address], [id number], [place] tel:[phone] [facility] [place] Encounter for elect tony termination of [place]. [address] [place] [address], [id number]. tel:[phone] Referring Provider: Shanique Zuñiga, [address] [place], [place], [id number]. tel:[phone] [facility] [place], [address] [place] [address], [id number], [place] tel:[phone] [facility] [place] Inapprop chg quanti tav hCG in early Ravinderstephanie Virk. [address] [place], [place], [id number], [place]. tel:[phone] Referring Provider: Stephanie Sully Giang, [address] [place], [place], [id number]. tel:[phone] Provider: ANUSHKA Nurse/CA. [facility], [address] [place] [address], [id number], [place] tel:[phone] ANKITANVALBER [place] Encounter for pregn evelina test, result positiveProblems related to unwanted pregnancyEncounter for elective termination of pregnancyFailed attempted termination of w/o complicationEncounter for oth general cnsl and advice on contraceptionEnctr srvlnc transdermal patch hormonal contraceptive device Carlos Manuel Hong. [address] [place] [address], [id number], [place]. tel:[phone] Referring Provider: Melissa oHrowitz, [address] [place] [address], [id number]. tel:[phone] [facility], [address] [place] [address], [id number], [place] tel:[phone] [facility] [place] Inapprop chg quanti tav hCG in early Carlos Manuel Hong. [address] [place], [place], [id number], [place]. tel:[phone] Consulting Provider: ANUSHKA Nurse/CA. [facility], [address] [place] [address], [id number], [place] tel:[phone] [facility] [place] Inapprop chg quanti tav hCG in early pregnancyEncntr for f/u exam aft trtmt for cond oth than malig neoplm Carlos Manuel Hong. [address] [place], [place], [id number], [place]. tel:[phone] Referring Provider: Melissa Horowitz, [address] [place], [place], [id number]. tel:[phone] Provider: ANUSHKA Nurse/CA. [facility], [address] [place], [place], [id number], [place] tel:[phone] [facility] Encounter for pregn evelina test, result positiveEncounter for oth general cnsl and advice on contraceptionProblems related to unwanted pregnancyEncounter for elective termination of Enctr for init prescription of patch hormonal contracep devOther sex counseling Rahat Virk. [address] [place], [place], [id number], [place]. tel:[phone] Referring Provider: Stephanie Giang, [address] [place], [place], [id number]. tel:[phone] [facility], [address] [place] [address], [id number], [place] tel:[phone] [facility] Encounter for pregn evelina test, result positivePrecipitous drop in hematocritProblems related to unwanted pregnancyEncounter for elective termination of pregnancyEncounter for oth general cnsl and advice on contraceptionOther sex counselingPelvic and perineal painEncntr screen for infections w sexl mode of transmiss Carlos Manuel Hong. [address] [place], [place], [id number], [place]. tel:[phone] Referring Provider: Melissa Horowitz, [address] [place], [place], [id number]. tel:[phone] [facility], [address] [place] [address], [id number], [place] tel:[phone] [facility] Encntr screen for i nfections w sexl mode of transmissHuman immunodeficiency virus [HIV] counselingEncounter for test, result negative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Enctr for init prescription of patch hormonal contracep devEncounter for oth general cnsl and advice on contraceptionOther sex counseling Rukhsana Hamm. [address] [place] [address], [id number], . tel:[phone] Referring Provider: Noris Milian, [address] [place] [address], [id number]. tel:[phone] [facility], [address] [place] [address], [id number], [place] tel:[phone] [facility] [place] Other sex counselin gEncounter for oth general cnsl and advice on contraceptionEncounter for removal of intrauterine contraceptive deviceEnctr srvlnc transdermal patch hormonal contraceptive device Rukhsana Hamm. [address] [place], [place], [id number], [place]. tel:[phone] Referring Provider: Noris Milian, [address] [place] [address], [id number]. tel:[phone] [facility], [address] [place] [address], [id number], [place] tel:[phone] [facility] [place] Other sex counselin gEncounter for oth general cnsl and advice on contraceptionEncntr screen for infections w sexl mode of transmissHigh risk heterosexual behaviorEnctr for init prescription of patch hormonal contracep devEncounter for test, result negativeHuman immunodeficiency virus [HIV] counseling Rukhsana Hamm. [address] [place] [address], [id number], [place]. tel:[phone] Referring Provider: Noris Milian, [address] [place] [address], [id number]. tel:[phone] [facility], [address] [place] [address], [id number], [place] tel:[phone] [facility] [place] Pruritus vulvaeUnsp ecified contact dermatitis, unspecified causeEncounter for oth general cnsl and advice on contraception King Judith. [address] [place], [place], [id number]. tel:[phone] Referring Provider: Judith Bassett, [address] [place], [place], [id number]. tel:[phone] 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 [address] [place], [place], [id number]. tel:[phone] Referring Provider: Judith Bassett, [address] [place], [place], [id number]. tel:[phone] [facility], [address] [place] [address], [id number], [place] tel:[phone] [facility] [place] Encounter for pregn evelina test, result negativeEncounter for oth general cnsl and advice on contraceptionEncounter for routine checking of intrauterine contracep devEncounter for insertion of intrauterine contraceptive deviceHigh risk heterosexual behavior Dave Rocha. [address] [place] [address], [id number], [place]. tel:[phone] Referring Provider: Josefina Dallas, [address] [place] [address], [id number]. tel:[phone] [facility], [address] [place] [address], [id number], [place] tel:[phone] [facility] [place] Encounter for pregn evelina test, result negativeEncntr screen for infections w sexl mode of transmissHigh risk heterosexual behaviorEncounter for oth general cnsl and advice on contraception Zena Andreea. [address] [place] [address], [id number], . tel:[phone] Referring Provider: Andreea Freitas, [address] [place], [place], [id number]. tel:[phone] [facility], [address] [place], [place], [id number], tel:[phone] [facility] [place] HIV CounselingPT, N egativeBVFamily Planning Counseling Dave Rocha. [address] [place] [address], [id number], . tel:[phone] Family History Family Member Diagnosis Age At [...] Unspecified Payers Payer name Insurance type Covered republican ID Authorization(s ) [facility] CI [id number] Social History Type Description Quantity Date Captured Comments Sex Female Smoking Status No Information Vital Signs Date / Time: Height Weight [...] Date No Information Medical Equipment Description Device Duffield Device Identifier Effective Leoncio es (start - stop) Status No Information Mental Status Date Cognitive Assessment No Information Health Concerns Observation Date No Information Concern Status Date No Information Physical Examination Exam Findings Details No Information
--- OUTSIDE RECORDS SUMMARY | 2021-05-02 17:42 | CCD ---
Author Author [facility] Organization [facility] Address Unknown Phone Unavailable Care Team Providers Care Patent Examiner Name Role Phone Caitlin Gore Unavailable PROBLEMS Type Condition ICD9-CM Code [id number] Code Onset Dates Condition S tatus W/U Status Risk SNOMED Code Notes Problem Seasonal allergic rhinitis, unspecified trigger J3 0.2 Active confirmed 028155335 Problem Supervision of other normal Z34.80 Ac tive confirm 070647643 Problem Depression with anxiety F41.8 Active confirmed 899422248 Problem Cigarette nicotine dependence in remission F17.211 Active confirmed 547417487 ALLERGIES No Known Allergies ENCOUNTERS from 1999 to 2021-02-18 Encounter Location Date Provider Diagnosis [address] [phone] [place] [address] Jan, Caitlin Gore IMMUNIZATIONS Vaccine Route Administration Date Status COVID-19 dose #2 given elsewhere Unspecified Unknown Oct Administered COVID-19 dose #1 given elsewhere Unspecified Unknown October 04, 2020 Administered SOCIAL HISTORY Tobacco Use: Social History Observation Description Date Details (start date - stop date) Current Smoker Sex Assigned At : Social History Observation Description Sex Assigned At Unknown Education: Question Answer Notes Level of Education: 12 grade Audit Question Answer Notes Total Score: 1 Interpretation: Alcohol Education Language: Question Answer Notes Languages spoken: Irish Worship: Question Answer Notes Worship 33 None Drug and Alcohol Question Answer Notes Total Score: 0 Interpretation: No problems reported Alcohol Screening: Question Answer Notes Did you have a drink containing alcohol in the past year? Ye s Points 4 Interpretation Positive How often did you have six or more drinks on one occas ion in the past year? Less than monthly (1 point) How many drinks did you have on a typica l day when you were drinking in the past year? 1 or 2 (0 points) How often did you have a drink containing alcohol in t he past year? Two to three times per week (3 points) Tobacco Use: Question Answer Notes Are you a: current smoker Patient counseled on the dangers of tobacco use and urged to quit: 10/30/2019 How many cigarettes a day do you smoke? 5 or less Are you interested in quitting? Thinking about quitting Counseled the patient on smoking cessation, education provid ed 10/30/2019 REASON FOR REFERRAL No Information VITAL SIGNS No information MEDICATIONS Medication SIG (Take, Route, Frequency, Duration) Notes Start Da te End Date Status Ortho Evra control patch Not-T aking busPIRone HCl 10 MG 1 tablet Orally Twice a day Not-Taking Mirena Not-Taking metroNIDAZOLE 500 MG 1 tablet Orally Twice a day for 7 days Apr, Not-Taking Xulane 150-35 MCG/24HR 1 patch to skin off 1 week t hen repeat on the same day every week Transdermal for 21 day(s) Active Lexapro 10 MG 1 tablet Orally Once a day Not-Taking PARoxetine HCl 10 MG 1 tablet in the morning Orally Once a day f or 30 day(s) Oct, Not-Taking Nicoderm CQ 7 MG/24HR 1 patch to skin Transdermal Once a day for 30 day(s) Oct, Not-Taking Fluticasone Propionate 50 MCG/ACT 1 spray in each nost ril Nasally Once a day for 30 day(s) Nov, Not-Taking Diflucan 150 MG 1 tablet Orally one time Apr, Not-Taking PROCEDURES No Information RESULTS No Results REASON FOR VISIT cough, diarrhea MEDICAL (GENERAL) HISTORY Type Description Date Medical History Anxiety and depression Medical History recurrent left anterior shoulder disloca tion Surgical History tonsillectomy Goals Section No Information Health Concerns No Information MEDICAL EQUIPMENT No Information MENTAL STATUS No Information FUNCTIONAL STATUS No Information ASSESSMENTS No Information PLAN OF TREATMENT No Information Insurance Providers Payer Name Payer Address Payer Phone Insured Name Patient Relati onship to Insured Coverage Start Date Coverage End Date [facility] [address] [facility] [id number] MARITZA,KASSY OSHEA self
--- OUTSIDE RECORDS SUMMARY | 2021-05-02 17:43 | CCD ---
Author Author [facility] Organization [facility] Address Unknown Phone Unavailable Care Team Providers Care Meteorology Teacher Name Role Phone Gaby Milian PA Unavailable Unavailable Gaby Milian PA Unavailable Unavailable PrincetonGaby sotoey PA Unavailable Unavailable [place], Gaby Thomasey PA Unavailable Unavailable [place], Gaby Noris PA Unavailable Unavailable [place], Gaby Noris PA Unavailable Unavailable [place], Gaby Noris PA Unavailable Unavailable [place], J Noris PA Unavailable Unavailable [place], J Noris PA Unavailable Unavailable [place], J Noris PA Unavailable Unavailable [place], Gaby Noris PA Unavailable Unavailable [place], Gaby Noris PA Unavailable Unavailable [place], J Noris PA Unavailable Unavailable [place], J Noris PA Unavailable Unavailable Gaby Milian Noris PA Unavailable Unavailable [place], J Noris PA Unavailable Unavailable [place], J Noris PA Unavailable Unavailable [place], J Noris PA Unavailable Unavailable [place], Gaby Noris PA Unavailable Unavailable [place], J Noris PA Unavailable Unavailable [place], Gaby Noris PA Unavailable Unavailable PrincetonGaby Noris PA Unavailable Unavailable Mestad, E Shanique Unavailable Unavailable Mestad, E Shanique Unavailable Unavailable Mestad, E Shanique Unavailable Unavailable Mestad, E Shanique Unavailable Unavailable Mestad, E Shanique Unavailable Unavailable Mestad, E Shanique Unavailable Unavailable Mestad, E Shanique Unavailable Unavailable Mestad, E Shanique Unavailable Unavailable Mestad, E Shanique Unavailable Unavailable Mestad, E Shanique Unavailable Unavailable Mestad, E Shanique Unavailable Unavailable Mestad, E Shanique Unavailable Unavailable Mestad, E Shanique Unavailable Unavailable Mestad, E Shanique Unavailable Unavailable Mestad, E Shanique Unavailable Unavailable Mestad, E Shanique Unavailable Unavailable Mestad, E Shanique Unavailable Unavailable Mestad, E Shanique Unavailable Unavailable Mestad, E Shanique Unavailable Unavailable Mestad, E Shanique Unavailable Unavailable Mestad, E Shanique Unavailable Unavailable Mestad, E Shanique Unavailable Unavailable Mestad, E Shanique Unavailable Unavailable Mestad, E Shanique Unavailable Unavailable Mestad, E Shanique Unavailable Unavailable Mestad, E Shanique Unavailable Unavailable Mestad, E Shanique Unavailable Unavailable Mestad, E Shanique Unavailable Unavailable LAROCK, J GILDARDO LEAD PAINTER Unavailable Unavailable LAROCK, Gaby EWING LEAD PAINTER Unavailable Unavailable LAROCK, Gaby EWING LEAD PAINTER Unavailable Unavailable LAROCK, J GILDARDO LEAD PAINTER Unavailable Unavailable LAROCK, Gaby EWING LEAD PAINTER Unavailable Unavailable LAROCK, Gaby EWING LEAD PAINTER Unavailable Unavailable LAROCK, Gaby EWING LEAD PAINTER Unavailable Unavailable LAROCK, Gaby EWING LEAD PAINTER Unavailable Unavailable LAROCK, Gaby EWING LEAD PAINTER Unavailable Unavailable LAROCK, Gaby EWING LEAD PAINTER Unavailable Unavailable LAROCK, J GILDARDO LEAD PAINTER Unavailable Unavailable LAROCK, J GILDARDO LEAD PAINTER Unavailable Unavailable LAROCK, J GILDARDO LEAD PAINTER Unavailable Unavailable LAROCK, J GILDARDO LEAD PAINTER Unavailable Unavailable LAROCK, J GILDARDO LEAD PAINTER Unavailable Unavailable LAROCK, Gaby EWING LEAD PAINTER Unavailable Unavailable LAROCK, Gaby EWING LEAD PAINTER Unavailable Unavailable LAROCK, Gaby EWING LEAD PAINTER Unavailable Unavailable LAROCK, Gaby EWING LEAD PAINTER Unavailable Unavailable LAROCK, Gaby EWING LEAD PAINTER Unavailable Unavailable LAROCK, Gaby EWING LEAD PAINTER Unavailable Unavailable LAROCK, Gaby EWING LEAD PAINTER Unavailable Unavailable Feola, T Tiffanie PA Unavailable Unavailable Feola, T Tiffanie PA Unavailable Unavailable Feola, T Tiffanie PA Unavailable Unavailable Feola, T Tiffanie PA Unavailable Unavailable Feola, T Tiffanie PA Unavailable Unavailable Feola, T Tiffanie PA Unavailable Unavailable Feola, T Tiffanie PA Unavailable Unavailable Feola, T Tiffanie PA Unavailable Unavailable Feola, T Tiffanie PA Unavailable Unavailable Feola, T Tiffanie PA Unavailable Unavailable Feola, T Tiffanie PA Unavailable Unavailable Feola, T Tiffanie PA Unavailable Unavailable Feola, T Tiffanie PA Unavailable Unavailable Feola, T Tiffanie PA Unavailable Unavailable Feola, T Tiffanie PA Unavailable Unavailable Feola, T Tiffanie PA Unavailable Unavailable Feola, T Tiffanie PA Unavailable Unavailable Feola, T Tiffanie PA Unavailable Unavailable Feola, T Tiffanie PA Unavailable Unavailable Feola, T Tiffanie PA Unavailable Unavailable Feola, T Tiffanie PA Unavailable Unavailable Feola, T Tiffanie PA Unavailable Unavailable Feola, T Tiffanie PA Unavailable Unavailable Feola, T Tiffanie PA Unavailable Unavailable Feola, T Tiffanie PA Unavailable Unavailable Feola, T Tiffanie PA Unavailable Unavailable Feola, T Tiffanie PA Unavailable Unavailable Feola, T Tiffanie PA Unavailable Unavailable Feola, T Tiffanie PA Unavailable Unavailable Feola, T Tiffanie PA Unavailable Unavailable Feola, T Tiffanie PA Unavailable Unavailable Feola, T Tiffanie PA Unavailable Unavailable Feola, T Tiffanie PA Unavailable Unavailable Feola, T Tiffanie PA Unavailable Unavailable Feola, T Tiffanie PA Unavailable Unavailable Feola, T Tiffanie PA Unavailable Unavailable Feola, T Tiffanie PA Unavailable Unavailable Feola, T Tiffanie PA Unavailable Unavailable Feola, T Tiffanie PA Unavailable Unavailable Feola, T Tiffanie PA Unavailable Unavailable Feola, T Tiffanie PA Unavailable Unavailable Green LEAD PAINTER LEAD PAINTER, Melissa Unavailable Unavailable Green LEAD PAINTER LEAD PAINTER, Melissa Unavailable Unavailable Green LEAD PAINTER LEAD PAINTER, Melissa Unavailable Unavailable Green LEAD PAINTER LEAD PAINTER, Melissa Unavailable Unavailable Green LEAD PAINTER LEAD PAINTER, Melissa Unavailable Unavailable Alan, Bianca Benito MD Unavailable [...] Benito MD Unavailable Unavailable Alan, A Jigna VAZQUEZ Unavailable Unavailable Alan, A Jigna MD Unavailable [...] Unavailable Alan, A Jigna MD Unavailable Unavailable Dwello PA PA, Stephanie Unavailable Unavailable Dwello PA PA, Stephanie Unavailable Unavailable Dwello PA PA, Stephanie Unavailable Unavailable Dwello PA PA, Stephanie Unavailable Unavailable Dwello PA PA, Stephanie Unavailable Unavailable Dwello PA PA, Stephanie Unavailable Unavailable Dwello PA PA, Stephanie Unavailable Unavailable PRYBYLOWSKI, E PAN PA Unavailable [...] Unavailable PRYBYLOWSKI, E PAN PA Unavailable Unavailable Jordan CARRILLO Unavailable Unavailable David Alicea Unavailable David Alicea Unavailable Re-disclosure Warning The records that you [...] is protected by Article 27-F of the [facility] [place] [facility] Public Health law. If you continue you may have access to information: Regarding HIV / AIDS; Provided by facilities licensed or operated by the [facility] Office of Mental Health; or Provided by the [facility] Office for People With Developmental Disabilities. If such information is present, then the following [facility] mandated warning applies: This information has been [...] law may result in a fine or penitentiary sentence or both. A general authorization for the release of medical or other information is NOT sufficient authorization for further disc losure. Family History Family Member Name Family Member Gender Family Member Status Date o f Status Description Data Source(s) Unknown Female Diagnosis 12/27/2015 12:00:00 AM EDT [facility] ([facility]) Unknown Female Diagnosis 12/27/2015 12:00:00 AM EDT [facility] ([facility]) Encounters Encounter Providers Location Date Indications Data Source(s ) OutpatientOFFICE VISIT, EST Attender: [place]is [place] 04/12/2021 02:50:00 PM EST - 04/12/2021 02:50:00 PM EST Female pelvic inflammatory disease, unspecifiedPelvic and perineal painEncounter for oth general cnsl and advice on contraceptionEncntr screen for infections w sexl mode of transmissOther sex counselingEncounter for test, result negativeEncounter for surveillance of injectable contraceptive [facility] ([facility]) Female pelvic inflammatory disease, unsp ecified Pelvic and perineal pain Encounter for oth general cnsl and advic e on contraception Encntr screen for infections w sexl mode of transmiss Other sex counseling Encounter for test, result neg ative Encounter for surveillance of injectable contraceptive Unknown [address], [facility] [address] 03/30/2021 12:00:00 AM EDT eCW1 ([facility]) Attender: Jigna Torres 08:42:00 AM EDT - 03/09/2021 08:42:00 AM EDT [facility] ([facility]) Attender: Jigna Torres 04/2021 03:37:00 PM EDT - 03/08/2021 03:37:00 PM EDT [facility] ([facility]) Attender: Melissa Torres 1 04:44:00 PM EDT - 03/07/2021 04:44:00 PM EDT [facility] ([facility]) OutpatientOFFICE VISIT, EST Attender: Melissa Torres 03/02/2021 11:45:00 AM EDT - 03/02/2021 11:45:00 AM EDT Other sex counselingEncounter for surveillance of injectable contraceptiveEncounter for oth general cnsl and advice on contraceptionAcute cystitis without hematuriaDysuriaFrequency of micturitionUrgency of urinationPelvic and perineal pain [facility] ([facility]) Other sex counseling Encounter for surveillance of injectable contraceptive Encounter for oth general cnsl and advic e on contraception Acute cystitis without hematuria Dysuria Frequency of micturition Urgency of urination Pelvic and perineal pain Unknown [address] [address] 02/15/2021 12:00:00 AM EDT eCW1 ([facility]) OFFICE VISIT, ESTOutpatient Attender: Stephanie hollyrtpasquale 01/25/2021 10:30:00 AM EDT - 01/25/2021 10:30:00 AM EDT Encounter for initial prescription of injectable contracepEncounter for oth general cnsl and advice on contraceptionHuman immunodeficiency virus [HIV] counselingEncounter for screening for human immunodeficiency virusEncntr screen for infections w sexl mode of transmissOther sex counseling [facility] ([facility]) Encounter for initial prescription of in jectable contracep Encounter for oth general cnsl and advic e on contraception Human immunodeficiency virus [HIV] couns eling Encounter for screening for human immuno deficiency virus Encntr screen for infections w sexl mode of transmiss Other sex counseling Attender: Stephanie Torres 07:48:00 AM EDT - 01/20/2021 07:48:00 AM EDT [facility] ([facility]) Attender: Stephanie Torres 06:54:00 PM EDT - 01/19/2021 06:54:00 PM EDT [facility] ([facility]) Attender: Jigna [place] 0 01/19/2021 01:08:00 PM EDT - 01/19/2021 01:08:00 PM EDT [facility] ([facility]) Attender: David Alicea 12/31/2020 12:00:00 AM EDT [facility] ([facility]) Extended Individual Psychotherapy - 45 min Attender: Bogdan Alicea [facility] 12/28/2020 05:00:00 AM EDT - 12/28/2020 05:00:00 AM EDT [facility] ([facility]) Attender: David Alicea 12/15/2020 12:00:00 AM EDT [facility] ([facility]) Attender: Stephanie REVELES [place] 08:56:00 AM EDT - 12/13/2020 08:56:00 AM EDT [facility] ([facility]) Extended Individual Psychotherapy - 45 min Attender: Bogdan mahmood [facility] 12/13/2020 02:00:00 AM EDT - 12/13/2020 02:00:00 AM EDT [facility] ([facility]) Attender: Jigna [place] 12:47:00 PM EDT - 12/10/2020 12:47:00 PM EDT [facility] ([facility]) Attender: David Alicea 12/09/2020 12:00:00 AM EDT [facility] ([facility]) Extended Individual Psychotherapy - 45 min Attender: Bogdan mahmood [facility] 12/07/2020 01:00:00 AM EDT - 12/07/2020 01:00:00 AM EDT [facility] ([facility]) Attender: David Alicea 11/16/2020 12:00:00 AM EDT [facility] ([facility]) Extended Individual Psychotherapy - 45 min Attender: Bogdan mahmood [facility] 11/15/2020 05:00:00 AM EDT - 11/15/2020 05:00:00 AM EDT [facility] ([facility]) [place] [address] [address] 10/28/2020 12:00:00 AM EDT eCW1 ([facility]) [place] [address] [address] 10/28/2020 12:00:00 AM EDT eCW1 ([facility]) Outpatient Attender: GILDARDO WHITMORE NP 12/2020 05:27:24 PM EDT - 10/02/2020 06:17:22 PM EDT [facility] ([facility] ) Attender: Shanique Zuñiga PPNCNY [place] 10/01/19 08:40:00 AM EDT - 09/30/2020 08:40:00 AM EDT Encounter for elective termination of [facility] ([facility]) Encounter for elective termination of pr egnancy Attender: Setphanie OLIVER PPNCALBER Torres 11:04:00 AM EDT - 09/21/2020 11:04:00 AM EDT [facility] ([facility]) Attender: Stephanie OLIVER PPNCALBER [place] 09:50:00 AM EDT - 09/20/2020 09:50:00 AM EDT Inapprop chg quantitav hCG in early [facility] ([facility]) Inapprop chg quantitav hCG in early preg davey Attender: Melissa Torres 0 09/17/2020 11:01:00 AM EDT - 09/17/2020 11:01:00 AM EDT [facility] ([facility]) OutpatientOFFICE VISIT, EST Post AB Attender: Melissa Torres 09/16/2020 01:00:00 PM EDT - 09/16/2020 01:00:00 PM ED T Enctr srvlnc transdermal patch hormonal contraceptive deviceEncounter for oth general cnsl and advice on contraceptionFailed attempted termination of w/o complicationEncounter for elective termination of pregnancyProblems related to unwanted pregnancyEncounter for test, result positive [facility] ([facility]) Enctr srvlnc transdermal patch hormonal contraceptive device Encounter for oth general cnsl and advic e on contraception Failed attempted termination of pregnanc y w/o complication Encounter for elective termination of pr egnancy Problems related to unwanted Encounter for test, result pos itive Outpatient Attender: Tiffanie OLIVER 021 05:23:32 PM EDT - 09/15/2020 06:59:59 PM EDT [facility] ([facility] ) Attender: Melissa REVELES [place] 0 09/15/2020 09:45:00 AM EDT - 09/15/2020 09:45:00 AM EDT [facility] ([facility]) Attender: Melissa Horowitz LEAD PAINTER LEAD PAINTER PPNCNY [place] 0 09/13/2020 09:20:00 AM EDT - 09/13/2020 09:20:00 AM EDT Inapprop chg quantitav hCG in early [facility] ([facility]) Inapprop chg quantitav hCG in early preg davey Attender: Melissa Horowitz LEAD PAINTER LEAD PAINTER PPNCNY [place] 0 09/13/2020 07:07:00 AM EDT - 09/13/2020 07:07:00 AM EDT [facility] ([facility]) Attender: Jigna Torres 08:47:00 AM EDT - 09/10/2020 08:47:00 AM EDT [facility] ([facility]) Attender: Melissa Horowitz LEAD PAINTER LEAD PAINTER PPNCNY [place] 0 09/09/2020 06:00:00 PM EDT - 09/09/2020 06:00:00 PM EDT Encntr for f/u exam aft trtmt for cond o th than malig neoplmInapprop chg quantitav hCG in early [facility] ([facility]) Encntr for f/u exam aft trtmt for cond o th than malig neoplm Inapprop chg quantitav hCG in early preg davey Attender: Jigna Torres 12:08:00 PM EDT - 09/09/2020 12:08:00 PM EDT [facility] ([facility]) Attender: Stephanie Torres 02:59:00 PM EDT - 09/08/2020 02:59:00 PM EDT [facility] ([facility]) Attender: Stephanie OLIVER PPNCNY [place] 08:45:00 AM EDT - 09/07/2020 08:45:00 AM EDT Other sex counselingEnctr for init presc ription of patch hormonal contracep devEncounter for elective termination of pregnancyProblems related to unwanted pregnancyEncounter for oth general cnsl and advice on contraceptionEncounter for test, result positive [facility] ([facility]) Other sex counseling Enctr for init prescription of patch hor monal contracep dev Encounter for elective termination of pr egnancy Problems related to unwanted Encounter for oth general cnsl and advic e on contraception Encounter for test, result pos itive Attender: Jigna Gil 0 08/23/2020 10:20:00 AM EDT - 08/23/2020 10:20:00 AM EDT [facility] ([facility]) Attender: Melissa Horowitz NP LEAD PAINTER ANUSHKA Torres 0 08/19/2020 08:27:00 AM EDT - 08/19/2020 08:27:00 AM EDT [facility] ([facility]) OFFICE VISIT, ESTOutpatient Attender: Melissa Horowitz NP LEAD PAINTER ANUSHKA Torres 08/18/2020 01:00:00 PM EDT - 08/18/2020 01:00:00 PM EDT Encntr screen for infections w sexl mode of transmissPelvic and perineal painOther sex counselingEncounter for oth general cnsl and advice on contraceptionEncounter for elective termination of pregnancyProblems related to unwanted Precipitous drop in hematocritEncounter for test, result positive [facility] ([facility]) Encntr screen for infections w sexl mode of transmiss Pelvic and perineal pain Other sex counseling Encounter for oth general cnsl and advic e on contraception Encounter for elective termination of pr egnancy Problems related to unwanted Precipitous drop in hematocrit Encounter for test, result pos itive [place] [address] [address] 07/30/2020 12:00:00 AM EST eCW1 ([facility]) Attender: Stephanie Torres 12/2020 04:22:00 PM EST - 07/05/2020 04:22:00 PM EST [facility] ([facility]) Attender: Jigna Torres 09/2020 10:45:00 AM EST - 07/02/2020 10:45:00 AM EST [facility] ([facility]) PREV VISIT, EST, AGE 18-39Outpatient Attender: Noris Torres 05/10/2020 11:20:00 AM EST - 05/10/2020 11:20:00 AM ES T Other sex counselingEncounter for oth general cnsl and advice on contraceptionEnctr for init prescription of patch hormonal contracep devEncntr for obstetrician and gynaecologist exam (general) (routine) w/o abn findingsEncounter for test, result negativeHuman immunodeficiency virus [HIV] counselingEncntr screen for infections w sexl mode of transmiss [facility] ([facility]) Other sex counseling Encounter for oth general cnsl and advic e on contraception Enctr for init prescription of patch hor monal contracep dev Encntr for obstetrician and gynaecologist exam (general) (routine) w/o abn findings Encounter for test, result neg ative Human immunodeficiency virus [HIV] couns eling Encntr screen for infections w sexl mode of transmiss Attender: PAN Torres 1 09:48:00 AM EDT - 03/12/2020 09:48:00 AM EDT [facility] ([facility]) Immunizations Vaccine Date Status Description Data Source(s) COVID-19 dose #2 given elsewhere Unspecified 10/27/2020 03:1 6:00 PM EDT completed eCW1 ([facility]) COVID-19 dose #2 given elsewhere Unspecified 10/27/2020 03:1 6:00 PM EDT completed eCW1 ([facility]) COVID-19 dose #2 given elsewhere Unspecified 10/27/2020 03:1 6:00 PM EDT completed eCW1 ([facility]) COVID-19 dose #2 given elsewhere Unspecified 10/27/2020 03:1 6:00 PM EDT completed eCW1 ([facility]) COVID-19 VACCINE Pfizer 10/27/2020 12:00:00 AM EDT completed [facility] Vaccine Series Complete: YESThis Data wa s Submitted to [facility]. COVID-19 dose #1 given elsewhere Unspecified 10/04/2020 03:1 7:00 PM EDT completed eCW1 ([facility]) COVID-19 dose #1 given elsewhere Unspecified 10/04/2020 03:1 7:00 PM EDT completed eCW1 ([facility]) COVID-19 dose #1 given elsewhere Unspecified 10/04/2020 03:1 7:00 PM EDT completed eCW1 ([facility]) COVID-19 dose #1 given elsewhere Unspecified 10/04/2020 03:1 7:00 PM EDT completed eCW1 ([facility]) COVID-19 VACCINE Pfizer 10/04/2020 12:00:00 AM EDT completed [facility] Vaccine Series Complete: NOThis Data was Submitted to [facility] [employer]. Medications Medication Brand Name Start Date Product Form Dose Route Admi nistrative Instructions Pharmacy Instructions Status Indications Reaction Description Data Source(s) Ceftriaxone 500 MG Injection ceftriaxone 500 mg soluti on for injection ceftriaxone 500 mg solution for injection 04/12/2021 12:00:00 AM EST completed Inject 500 mg total once with 1ml of 1% lidocaine administer to pt in clinic [facility] ([facility]) Metronidazole 500 MG Oral Tablet metronidazole 500 mg tablet metronidazole 500 mg tablet 04/12/2021 12:00:00 AM EST active 1 tab po bid x 14d (#28) [facility] ([facility]) Metronidazole 500 MG Oral Tablet metronidazole 500 mg tablet metronidazole 500 mg tablet 04/12/2021 12:00:00 AM EST complete d 1 tab po bid x 14d (#28) [facility] ([facility]) Medication administered onsite Doxycycline Monohydrate 100 MG Oral Tabl et doxycycline monohydrate 100 mg tablet doxycycline monohydrate 100 mg tablet 04/12/2021 12:00:00 AM EST active 1 tab po bid x 14days (#28) [facility] ([facility]) medroxyprogesterone acetate 150 MG/ML In jectable Suspension [Depo-Provera] Depo- Provera 150 mg/mL intramuscular suspension Depo-Provera 150 mg/mL intramuscular suspension 04/12/2021 12:00:00 AM EST active 1 ML medroxyprogesterone acetate 150 MG/ML Injection [Depo-Provera] [facility] ([facility]) NITROFURANTOIN, MACROCRYSTALS 25 MG / Ni trofurantoin, Monohydrate 75 MG Oral Capsule nitrofurantoin monohydrate/macrocrystals 100 mg capsule nitrofurantoin monohydrate/macrocrystals 100 mg capsule 03/02/2021 12:00:00 AM EDT completed 1 tab po BID x 5 days [facility] ([facility]) medroxyprogesterone acetate 150 MG/ML In jectable Suspension medroxyprogesterone 150 mg/mL intramuscular suspension medroxyprogesterone 150 mg/mL intramuscu lar suspension 01/25/2021 12:00:00 AM EDT active IM every 10-13 weeks [facility] ([facility]) 168 HR Ethinyl Estradiol 0.53447 MG/HR / norelgestromin 0.45126 MG/HR Transdermal Patch [Xulane] Xulane 150 mcg-35 mcg/24 hr transdermal patch Xulane 150 mcg-35 mcg/24 hr transdermal patch 01/20/2021 12:00:00 AM EDT active 168 HR ethinyl estra diol 0.76751 MG/HR / norelgestromin 0.22851 MG/HR Transdermal System [Xulane] [facility] ([facility]) 168 HR Ethinyl Estradiol 0.97706 MG/HR / norelgestromin 0.49243 MG/HR Transdermal Patch [Xulane] Xulane 150 mcg-35 mcg/24 hr transdermal patch Xulane 150 mcg-35 mcg/24 hr transdermal patch 01/20/2021 12:00:00 AM EDT completed 168 HR ethinyl estra diol 0.74643 MG/HR / norelgestromin 0.21007 MG/HR Transdermal System [Xulane] [facility] ([facility]) Medication administered onsite 168 HR Ethinyl Estradiol 0.31920 MG/HR / norelgestromin 0.25719 MG/HR Transdermal Patch [Xulane] Xulane 150 mcg-35 mcg/24 hr transdermal patch Xulane 150 mcg-35 mcg/24 hr transdermal patch 01/20/2021 12:00:00 AM EDT completed 168 HR ethinyl estra diol 0.46734 MG/HR / norelgestromin 0.40992 MG/HR Transdermal System [Xulane] [facility] ([facility]) Medication administered onsite 168 HR Ethinyl Estradiol 0.28547 MG/HR / norelgestromin 0.63195 MG/HR Transdermal Patch [Xulane] Xulane 150 mcg-35 mcg/24 hr transdermal patch Xulane 150 mcg-35 mcg/24 hr transdermal patch 12/10/2020 12:00:00 AM EDT active 168 HR ethinyl estra diol 0.63848 MG/HR / norelgestromin 0.82945 MG/HR Transdermal System [Xulane] [facility] ([facility]) Lorazepam 0.5 MG Oral Tablet lorazepam 0.5 mg tablet lorazep am 0.5 mg tablet 09/30/2020 12:00:00 AM EDT active 1- 4 tabs po in clinic prior to procedure [facility] ([facility]) Misoprostol 0.2 MG Oral Tablet misoprostol 200 mcg tab let misoprostol 200 mcg tablet 09/30/2020 12:00:00 AM EDT active 2 tabs buccally administer in clinic [facility] ([facility]) Metronidazole 500 MG Oral Tablet metronidazole 500 mg tablet metronidazole 500 mg tablet 09/30/2020 12:00:00 AM EDT completed 1 tab po x 1 [facility] ([facility]) 1 ML Ketorolac Tromethamine 30 MG/ML Car tridge ketorolac 30 mg/mL injection cartridge ketorolac 30 mg/mL injection cartridge 09/30/2020 12:00:00 AM EDT completed im administer to pt in clinic [facility] ([facility]) Ondansetron 4 MG Oral Tablet ondansetron HCl 4 mg tabl et ondansetron HCl 4 mg tablet 09/16/2020 12:00:00 AM EDT completed 1 tab po every 4 hours prn [facility] ([facility]) Misoprostol 0.2 MG Oral Tablet misoprostol 200 mcg tab let misoprostol 200 mcg tablet 09/16/2020 12:00:00 AM EDT completed 4 tabs buccally 24-48 hrs after mifepristone (#4) [facility] ([facility]) Mifepristone 200 MG Oral Tablet [Mifeprex] Mifeprex 20 0 mg tablet Mifeprex 200 mg tablet 09/16/2020 12:00:00 AM EDT complete d mifepristone 200 MG Oral Tablet [Mifeprex] [facility] ([facility]) 168 HR Ethinyl Estradiol 0.89357 MG/HR / norelgestromin 0.20425 MG/HR Transdermal Patch [Xulane] Xulane 150 mcg-35 mcg/24 hr transdermal patch Xulane 150 mcg-35 mcg/24 hr transdermal patch 09/07/2020 12:00:00 AM EDT active 168 HR ethinyl estra diol 0.02717 MG/HR / norelgestromin 0.45032 MG/HR Transdermal System [Xulane] [facility] ([facility]) Mifepristone 200 MG Oral Tablet [Mifeprex] Mifeprex 20 0 mg tablet Mifeprex 200 mg tablet 09/07/2020 12:00:00 AM EDT complete d mifepristone 200 MG Oral Tablet [Mifeprex] [facility] ([facility]) Acetaminophen 300 MG / Codeine Phosphate 30 MG Oral Tablet acetaminophen 300 mg- codeine 30 mg tablet acetaminophen 300 mg-codeine 30 mg tablet 09/07/2020 12:00:00 AM EDT completed 1-2 t abs po every 4 hours prn pain [facility] ([facility]) Misoprostol 0.2 MG Oral Tablet misoprostol 200 mcg tab let misoprostol 200 mcg tablet 09/07/2020 12:00:00 AM EDT completed 4 tabs buccally 24-48 hrs after mifepristone (#4) [facility] ([facility]) Ibuprofen 800 MG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 ygeal (Send Out) COVID eCW1 ([facility]) ID Date Data Source [id number] 09/20/2020 12:00:00 AM EDT [facility] ([facility]) Name Value Range Interpretation Code Description Data Lali rce(s) Supporting Document(s) [id number] SeeComment Abnormal (applies to non -numeric results) hCG Quantitative - STAT [facility] ([facility]) Gestational Age Expected hCG values (m IU/mL)<1 Week: 5-501-2 Weeks: 50-5002-3 Weeks: 100-11066-3 Weeks: 011-447170-2 Weeks: 3301-114845-4 Weeks: 91914-8060476-5 Weeks: 97712-2493277-5 Months: [phone]- [id number] < 10 The table above provides only an estimate of gestationalage and should be used in conjunction with other more reliable and accurate methods for establishing gestationalage, e.g., Last Menstrual Period (LMP) or ultrasound. Forresults of 5-25 mlU/mL, collect another sample and repeattest in 2 days, if is suspected. Values from different assay methods may vary.The use of this assay to monitor or to diagnose patients with cancer or any condition unrelatedto has not been cleared or approved bythe FDA or the cylinder machine operator of the assay.

Performed by:
CDD ([id number])

ID Date Data Source [id number] 09/17/2020 08:09:00 PM EDT [facility] Name Value Range Interpretation Code Description Data Lali rce(s) Supporting Document(s) COVID-19 RT-PCR NASAL SWAB Not Detected Not Detected [facility] A not detected (negative) test result fo r this test means that SARS-CoV-2 RNA was not present in the specimen above the limit ofdetection. Laboratory test results should always be considered in thecontext of clinical observations and epidemiological data in making afinal diagnosis and patient management decisions. Results will bereported to government agencies as required.This test has received Emergency Use Authorization (EUA). We will continue to follow federal and state requirements for COVID-19 reporting. This test has been authorized only for the detection of RNAfrom SARS-CoV-2 virus and diagnosis of SARS-CoV-2 virus infection, notfor any other viruses or pathogens. This test is only authorized for the duration of the declaration that circumstances exist justifying the authorization of the emergency use of in vitro diagnostic tests for detection of SARS-CoV-2 virus and/or diagnosis of SARS-CoV-2 virusinfection under section 564(b)(1) of the Act, 21 U.S.C. section 360bbb-3(b)(1), unless the authorization is terminated or revoked sooner. We will continue to follow federal and state requirements for both notification of results and any confirmatory testing that is required by another agency. This test was developed and its performance characteristics determined by [employer] and verified at [facility]. It has not been cleared or approved by the U.S. Food and Drug Administration for diagnostic use. This test has been authorized by FDA under an EUA for use by authorized laboratories. Results should be used in conjunction with clinical findings, and should not form the sole basis for a diagnosis or treatment decision. Methods: SARS-CoV-2 Multiplex RT-PCR Assay ID Date Data Source [id number] 09/16/2020 12:00:00 AM EDT [facility] ([facility]) Name Value Range Interpretation Code Description Data Lali rce(s) Supporting Document(s) [id number] SeeComment Abnormal (applies to non -numeric results) hCG Quantitative - STAT [facility] ([facility]) Gestational Age Expected hCG values (m IU/mL)<1 Week: 5-501-2 Weeks: 50-5002-3 Weeks: 100-06878-7 Weeks: 319-286336-2 Weeks: 5954-081990-8 Weeks: 90810-2677943-8 Weeks: 09207-8076481-8 Months: 08354- 5253287Biusdfvzjuuvaj < 10 The table above provides only an estimate of gestationalage and should be used in conjunction with other more reliable and accurate methods for establishing gestationalage, e.g., Last Menstrual Period (LMP) or ultrasound. Forresults of 5-25 mlU/mL, collect another sample and repeattest in 2 days, if is suspected. Values from different assay methods may vary.The use of this assay to monitor or to diagnose patients with cancer or any condition unrelatedto has not been cleared or approved bythe FDA or the cylinder machine operator of the assay.

Performed by:
JUSTYNA ([id number])

ID Date Data Source [id number] 09/15/2020 05:45:00 PM EDT [facility] Name Value Range Interpretation Code Description Data Lali rce(s) Supporting Document(s) SARS-CoV-2 (COVID-19) N gene [Presence] in Respiratory specimen by REMINGTON with probe detection NEGATIVE [facility] This lab was ordered by [facility] and reported by [email or web address]. ID Date Data Source [id number] 09/15/2020 12:00:00 AM EDT [facility] Name Value Range Interpretation Code Description Data Lali rce(s) Supporting Document(s) Carestart Rapid COVID Antigen Test Negative [facility] This lab was reported by [facility]. ID Date Data Source [id number] 09/09/2020 12:00:00 AM EDT [facility] ([facility]) Name Value Range Interpretation Code Description Data Lali rce(s) Supporting Document(s) [id number] SeeComment Abnormal (applies to non-numer ic results) hCG Quantitative [facility] ([facility]) Gestational Age Expected hCG values (m IU/mL)<1 Week: 5-501-2 Weeks: 50-5002-3 Weeks: 100-19045-0 Weeks: 903-944949-6 Weeks: 4176-419287-3 Weeks: 73722-4072617-8 Weeks: 36888-8495513-0 Months: 67072- [phone] < 10 The table above provides only an estimate of gestationalage and should be used in conjunction with other more reliable and accurate methods for establishing gestationalage, e.g., Last Menstrual Period (LMP) or ultrasound. Forresults of 5-25 mlU/mL, collect another sample and repeattest in 2 days, if is suspected. Values from different assay methods may vary.The use of this assay to monitor or to diagnose patients with cancer or any condition unrelatedto has not been cleared or approved bythe FDA or the cylinder machine operator of the assay.

Performed by:
CDSid ([id number])

ID Date Data Source [id number] 09/07/2020 09:25:35 AM EDT [facility] ([facility]) Name Value Range Interpretation Code Description Data Lali rce(s) Supporting Document(s) 13.10 gm/dL [facility] ID Date Data Source [id number] 09/07/2020 09:05:20 AM EDT [facility] ([facility]) Name Value Range Interpretation Code Description Data Lali rce(s) Supporting Document(s) PositiveLot: [id number]: 02/24/2022 Abnormal (applies to non-numeric results) [facility]) ID Date Data Source [id number] 09/07/2020 12:00:00 AM EDT [facility] Name Value Range Interpretation Code Description Data Lali rce(s) Supporting Document(s) Specimen unsatisfactory for diagnosis:Separation problems due to incorrect specimen handling prior to centrifugation or due to improper centrifugation Significant change up hCG Quantitative [facility] ([facility]) ID Date Data Source [id number] 08/18/2020 01:49:52 PM EDT [facility] ([facility]) Name Value Range Interpretation Code Description Data Lali rce(s) Supporting Document(s) PositiveLot: [id number]: 02/24/2022 Abnormal (applies to non-numeric results) High Sensitivity Urine Test [facility] ([facility]) ID Date Data Source [id number] 08/18/2020 01:38:40 PM EDT [facility] ([facility]) Name Value Range Interpretation Code Description Data Lali rce(s) Supporting Document(s) 13.10 gm/dL Hemoglobin [facility] ([facility]) ID Date Data Source [id number] 08/18/2020 01:21:44 PM EDT [facility] ([facility]) Name Value Range Interpretation Code Description Data Lali rce(s) Supporting Document(s) NegativeLot: [id number]: 02/24/2022 High Sensitivity Urine Test [facility] ([facility]) ID Date Data Source [id number] 08/18/2020 12:00:00 AM EDT [facility] ([facility]) Name Value Range Interpretation Code Description Data Lali rce(s) Supporting Document(s) Negative Normal (applies to non-numeric resul ts) Urine CT/GC Combo - GC [facility] ([facility]) : No Performed by: CDD ([id number]) ID Date Data Source [id number] 08/18/2020 12:00:00 AM EDT [facility] ([facility]) Name Value Range Interpretation Code Description Data Lali rce(s) Supporting Document(s) Negative Normal (applies to non-numeric resul ts) Urine CT/GC Combo - CT [facility] ([facility]) ID Date Data Source [id number] 08/18/2020 12:00:00 AM EDT [facility] ([facility]) Name Value Range Interpretation Code Description Data Lali rce(s) Supporting Document(s) RH (D) Positive Rh Type [facility] This assay does not detect weak D.Not al l anti-D reagents detect the same partial or weak expressions of D.Therefore, depending on the reagent used for testing, the interpretation ofthe D antigen may be different from one laboratory to another or fromhistorical records.Patients should be tested for the presence of weak D if clinically indicated.: No Performed by: JUSTYNA ([id number]) ID Date Data Source [id number] 07/21/2020 11:07:00 PM EST [facility] Name Value Range Interpretation Code Description Data Lali rce(s) Supporting Document(s) SARS coronavirus 2 RNA [Presence] in Res piratory specimen by REMINGTON with probe detection NEGATIVE [facility] This lab was ordered by [facility] a nd reported by [facility]. ID Date Data Source [id number] 07/20/2020 12:00:00 AM EST [facility] Name Value Range Interpretation Code Description Data Lali rce(s) Supporting Document(s) [facility]2 [facility] was ordered by [facility] and reported by [facility]. ID Date Data Source [id number] 06/04/2020 12:00:00 AM EST [facility] Name Value Range Interpretation Code Description Data Lali rce(s) Supporting Document(s) SARS-CoV2 Rapid Antigen [facility] This lab was ordered by [facility] and reported by [facility]. ID Date Data Source [id number] 05/10/2020 11:41:21 AM EST [facility] ([facility]) Name Value Range Interpretation Code Description Data Lali rce(s) Supporting Document(s) NegativeLot: [id number]: 07/25/2021 High Sensitivity Urine Test [facility] ([facility]) ID Date Data Source [id number] 05/10/2020 12:00:00 AM EST [facility] ([facility]) Name Value Range Interpretation Code Description Data Lali rce(s) Supporting Document(s) Negative Normal (applies to non-numeric resul ts) Urine CT/GC Combo - GC [facility] ([facility]) : No Performed by: JUSTYNA ([id number]) ID Date Data Source [id number] 05/10/2020 12:00:00 AM EST [facility] ([facility]) Name Value Range Interpretation Code Description Data Lali rce(s) Supporting Document(s) Negative Normal (applies to non-numeric resul ts) Urine CT/GC Combo - CT [facility] ([facility]) Procedure Social History Code Duration Value Status Description Data Source(s ) Smoking 04/12/2021 12:00:00 AM EST Light tobacco smoker comple maged Light tobacco smoker [facility] ([facility]) 01/25/2021 12:00:00 AM EDT Light cigarette smoker (1-9 cigs/day) completed Light cigarette smoker (1-9 cigs/day) [facility] ([facility]) Smoking 12/31/2020 12:00:00 AM EDT Unknown if ever smoked comp leted Unknown if ever smoked [facility] ([facility]) Smoking 12/15/2020 12:00:00 AM EDT Unknown if ever smoked comp leted Unknown if ever smoked [facility] ([facility]) Smoking 12/09/2020 12:00:00 AM EDT Unknown if ever smoked comp leted Unknown if ever smoked [facility] ([facility] [place] [place]) Smoking 11/16/2020 12:00:00 AM EDT Unknown if ever smoked comp leted Unknown if ever smoked [facility] ([facility] [place] [place]) Smoking 10/28/2020 12:00:00 AM EDT Current Smoker completed Curre nt Smoker eCW1 ([facility]) Smoking 10/28/2020 12:00:00 AM EDT Current Smoker completed Curre nt Smoker eCW1 ([facility]) Smoking 10/28/2020 12:00:00 AM EDT Current Smoker completed Curre nt Smoker eCW1 ([facility]) Smoking 10/28/2020 12:00:00 AM EDT Current Smoker completed Curre nt Smoker eCW1 ([facility]) Smoking 07/30/2020 12:00:00 AM EST Current Smoker completed Curre nt Smoker eCW1 ([facility]) Vital Signs ID Date Data Source [id number] Name Value Range Interpretation Code Description Data Source(s) Body height 160.02 cm 160.02 cm [facility] Body weight 54.885 kg 54.885 kg [facility] Systolic blood pressure 108 mm[Hg] 108 mm[Hg] N [facility] ([facility]) Diastolic blood pressure 72 mm[Hg] 72 mm[Hg] [facility] ([facility]) Body mass index (BMI) [Ratio] 21.43 kg/m2 21.43 kg/m2 [facility] ([facility]) Body temperature 36.67 Charla 36.67 Charla [facility] ([facility]) Body height 160.02 cm 160.02 cm [facility] Body weight 54.613 kg 54.613 kg [facility]) Systolic blood pressure 110 mm[Hg] 110 mm[Hg] N [facility] ([facility]) Diastolic blood pressure 66 mm[Hg] 66 mm[Hg] [facility] Body mass index (BMI) [Ratio] 21.33 kg/m2 21.33 kg/m2 [facility] ([facility]) Body height 160.02 cm 160.02 cm [facility] Body weight 57.606 kg 57.606 kg [facility] Systolic blood pressure 111 mm[Hg] 111 mm[Hg] N [facility] ([facility]) Diastolic blood pressure 75 mm[Hg] 75 mm[Hg] [facility] ([facility]) Body mass index (BMI) [Ratio] 22.50 kg/m2 22.50 kg/m2 NextGen ([facility]) Body weight 131 [lb_av] 131 [lb_av] eCW1 ([facility]) Body height 64 [in_i] 64 [in_i] eCW1 ([facility]) Body mass index (BMI) [Ratio] 22.48 kg/m2 22.48 kg/m2 eCW1 ([facility]) Heart rate 114 /min 114 /min eCW1 ([facility]) Respiratory rate 18 /min 18 /min eCW1 ([facility]) Body temperature 99.7 [degF] 99.7 [degF] eCW1 ( [facility]) Systolic blood pressure 122 mm[Hg] 122 mm[Hg] e CW1 ([facility]) Diastolic blood pressure 64 mm[Hg] 64 mm[Hg] eCW1 ([facility]) Systolic blood pressure 117 mm[Hg] 117 mm[Hg] N extGen ([facility]) Diastolic blood pressure 80 mm[Hg] 80 mm[Hg] NextGen ([facility]) Heart rate 98 /min 98 /min [facility]Gen ([facility] Respiratory rate 18 /min 18 /min NextGen ([facility]) Inhaled oxygen concentration 21 % 21 % NextGen ([facility]) Systolic blood pressure 128 mm[Hg] 128 mm[Hg] N extGen ([facility]) Diastolic blood pressure 89 mm[Hg] 89 mm[Hg] NextGen ([facility]) Heart rate 77 /min 77 /min NextGen ([facility] Respiratory rate 20 /min 20 /min NextGen ([facility]) Inhaled oxygen concentration 21 % 21 % NextGen ([facility]) Systolic blood pressure 118 mm[Hg] 118 mm[Hg] N extGen ([facility]) Diastolic blood pressure 70 mm[Hg] 70 mm[Hg] NextGen ([facility]) Heart rate 60 /min 60 /min NextGen ([facility] Respiratory rate 14 /min 14 /min NextGen ([facility]) Body height 160.02 cm 160.02 cm NextGen [facility] Body weight 60.691 kg 60.691 kg NextGen ([facility] Systolic blood pressure 110 mm[Hg] 110 mm[Hg] N extGen ([facility]) Diastolic blood pressure 70 mm[Hg] 70 mm[Hg] NextGen ([facility]) Heart rate 93 /min 93 /min NextGen ([facility] Body temperature 36.06 Charla 36.06 Charla NextGen ([facility]) Respiratory rate 18 /min 18 /min NextGen ([facility]) Body mass index (BMI) [Ratio] 23.70 kg/m2 23.70 kg/m2 NextGen ([facility]) Body height 160.02 cm 160.02 cm NextGen ([facility] Body weight 62.233 kg 62.233 kg NextGen ([facility] Systolic blood pressure 100 mm[Hg] 100 mm[Hg] N extGen ([facility]) Diastolic blood pressure 60 mm[Hg] 60 mm[Hg] NextGen ([facility]) Body mass index (BMI) [Ratio] 24.30 kg/m2 24.30 kg/m2 NextGen ([facility]) Systolic blood pressure 125 mm[Hg] 125 mm[Hg] N extGen ([facility]) Diastolic blood pressure 72 mm[Hg] 72 mm[Hg] NextGen ([facility]) Body weight 59.421 kg 59.421 kg NextGen ([facility] Body height 160.02 cm 160.02 cm NextGen ([facility] Body mass index (BMI) [Ratio] 23.21 kg/m2 23.21 kg/m2 NextGen ([facility]) Body height 160.02 cm 160.02 cm NextGen ([facility] Body weight 61.144 kg 61.144 kg NextGen ([facility]) Systolic blood pressure 110 mm[Hg] 110 mm[Hg] N extGen ([facility]) Diastolic blood pressure 68 mm[Hg] 68 mm[Hg] NextGen ([facility]) Body mass index (BMI) [Ratio] 23.88 kg/m2 23.88 kg/m2 NextGen ([facility]) Body height 160.02 cm 160.02 cm NextGen [facility] Body weight 60.509 kg 60.509 kg NextGen ([facility] Systolic blood pressure 102 mm[Hg] 102 mm[Hg] N extGen ([facility]) Diastolic blood pressure 68 mm[Hg] 68 mm[Hg] NextGen ([facility]) Body mass index (BMI) [Ratio] 23.63 kg/m2 23.63 kg/m2 NextGen ([facility]) Body height 160.02 cm 160.02 cm NextGen [facility] Body weight 59.421 kg 59.421 kg NextGen ([facility] Systolic blood pressure 102 mm[Hg] 102 mm[Hg] N extGen ([facility]) Diastolic blood pressure 70 mm[Hg] 70 mm[Hg] NextGen ([facility]) Body mass index (BMI) [Ratio] 23.21 kg/m2 23.21 kg/m2 NextGen ([facility]) Body weight 125 [lb_av] 125 [lb_av] eCW1 ([facility]) Body height 64 [in_i] 64 [in_i] eCW1 ([facility]) Body mass index (BMI) [Ratio] 21.45 kg/m2 21.45 kg/m2 W1 ([facility]) Heart rate 88 /min 88 /min W1 ([facility]) Respiratory rate 18 /min 18 /min eCW1 ([facility]) Body temperature 98.3 [degF] 98.3 [degF] eCW1 ( [facility]) Systolic blood pressure 120 mm[Hg] 120 mm[Hg] e CW1 ([facility]) Diastolic blood pressure 60 mm[Hg] 60 mm[Hg] eCW1 ([facility]) Body height 160.02 cm 160.02 cm NextGen ([facility] Body weight 54.885 kg 54.885 kg NextGen ([facility] Systolic blood pressure 118 mm[Hg] 118 mm[Hg] N extGen ([facility]) Diastolic blood pressure 67 mm[Hg] 67 mm[Hg] NextGen ([facility]) Body mass index (BMI) [Ratio] 21.43 kg/m2 21.43 kg/m2 NextGen ([facility]) Patient Treatment Plan of Care Planned Activity Planned Date Details Description Data Source (s) Metronidazole 500 MG Oral Tablet 04/12/2021 12:00:00 AM EST NextGen ([facility]) Ceftriaxone 500 MG Injection 04/12/2021 12:00:00 AM EST NextGen ([facility]) medroxyprogesterone acetate 150 MG/ML Injectable Suspe nsion [Depo-Provera] 04/12/2021 12:00:00 AM EST [facility]Gen ([facility] Metronidazole 500 MG Oral Tablet 04/12/2021 12:00:00 AM EST NextGen ([facility]) Doxycycline Monohydrate 100 MG Oral Tablet 04/12/2021 12:00:[address] [facility] ([facility]) NITROFURANTOIN, MACROCRYSTALS 25 MG / Ni trofurantoin, Monohydrate 75 MG Oral Capsule 03/02/2021 12:00:00 AM EDT NextG en ([facility]) medroxyprogesterone acetate 150 MG/ML Injectable Suspe nsion 01/25/2021 12:00:00 AM EDT [facility]Gen [facility] 168 HR Ethinyl Estradiol 0.60764 MG/HR / norelgestromin 0.35142 MG/HR Transdermal Patch [Xulane] 01/20/2021 12:00:00 AM EDT NextGen ([facility]) 168 HR Ethinyl Estradiol 0.11618 MG/HR / norelgestromin 0.74809 MG/HR Transdermal Patch [Xulane] 01/20/2021 12:00:00 AM EDT NextGen ([facility]) 168 HR Ethinyl Estradiol 0.41343 MG/HR / norelgestromin 0.65692 MG/HR Transdermal Patch [Xulane] 01/20/2021 12:00:00 AM EDT NextGen ([facility]) 168 HR Ethinyl Estradiol 0.47866 MG/HR / norelgestromin 0.71248 MG/HR Transdermal Patch [Xulane] 12/10/2020 12:00:00 AM EDT NextGen ([facility]) Metronidazole 500 MG Oral Tablet 09/30/2020 12:00:00 AM EDT NextGen ([facility]) 1 ML Ketorolac Tromethamine 30 MG/ML Cartridge 09/30/2020 12:00:00 AM EDT NextGen ([facility]) Lorazepam 0.5 MG Oral Tablet 09/30/2020 12:00:00 AM EDT NextGen ([facility]) Misoprostol 0.2 MG Oral Tablet 09/30/2020 12:00:00 AM EDT NextGen ([facility]) Ondansetron 4 MG Oral Tablet 09/16/2020 12:00:00 AM EDT NextGen ([facility]) Misoprostol 0.2 MG Oral Tablet 09/16/2020 12:00:00 AM EDT NextGen ([facility]) Mifepristone 200 MG Oral Tablet [Mifeprex] 09/16/2020 12:00:00 AM E DT NextGen ([facility]) Ondansetron 4 MG Oral Tablet 09/07/2020 12:00:00 AM EDT NextGen ([facility]) Misoprostol 0.2 MG Oral Tablet 09/07/2020 12:00:00 AM EDT NextGen ([facility]) Ibuprofen 800 MG Oral Tablet 09/07/2020 12:00:00 AM EDT NextGen ([facility]) Acetaminophen 300 MG / Codeine Phosphate 30 MG Oral Ta blet 09/07/2020 12:00:00 AM EDT NextGen ([facility] 168 HR Ethinyl Estradiol 0.57929 MG/HR / norelgestromin 0.73724 MG/HR Transdermal Patch [Xulane] 09/07/2020 12:00:00 AM EDT NextGen ([facility]) Mifepristone 200 MG Oral Tablet [Mifeprex] 09/07/2020 12:00:00 AM E DT NextGen ([facility]) 168 HR Ethinyl Estradiol 0.48606 MG/HR / norelgestromin 0.97985 MG/HR Transdermal Patch [Xulane] 05/10/2020 12:00:00 AM EST NextGen ([facility]) 168 HR Ethinyl Estradiol 0.54830 MG/HR / norelgestromin 0.45894 MG/HR Transdermal Patch [Xulane] 01/20/2020 12:00:00 AM EDT NextGen ([facility]) Trazodone Hydrochloride 50 MG Oral Tablet NextGen ([facility]) buspirone hydrochloride 10 MG Oral Tablet NextGen ([facility]) Escitalopram 10 MG Oral Tablet [Lexapro] NextGen ([facility])
--- OUTSIDE RECORDS SUMMARY | 2021-05-02 17:43 | CCD | Continuity of Care Document ---
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 Name Role Phone Dwello Stephanie OLIVER Unavailable [...] Encounter for test, result negative Encntr for sock folder exam (general) (routine) w/o abn findings Enctr [...] Unspecified contact dermatitis, unspecified cause Encounter for [facility] general cnsl and advice on contraception Human immunodeficiency virus [HIV] counseling Encounter for [facility] general cnsl and advice on contraception Encounter for routine checking of intrauterine contracep dev Encntr for sock folder exam (general) (routine) w/o abn findings Encounter for test, result negative Encounter for ot general cnsl and advice on contraception Encounter for routine checking of intrauterine contracep dev Encounter for insertion of intrauterine contraceptive device High risk heterosexual behavior Encounter for test, result negative Encntr screen for infections w sexl mode of transmiss High risk heterosexual behavior Encounter for [facility] general cnsl and advice on [...] on Encounter [facility] [place], [address], [id number], [place] tel:[phone] [facility] [place] Other sex counselin gEncntr screen for infections w sexl mode of transmissEncounter for screening for human immunodeficiency virusHuman immunodeficiency virus [HIV] counselingEncounter for oth general cnsl and advice on contraceptionEncounter for initial prescription of injectable contracep Rahat Virk. [address] [place], [place], [id number], [place]. tel:[phone] Referring Provider: Stephanie Giang, [address] [place] [address], [id number]. tel:[phone] [facility] [place], [address] [place] [address], [id number], [place] tel:[phone] [facility] [place] No Information Sid Virk. [address] [place] [address], [id number], [place]. tel:[phone] [facility] [place], [address] [place] [address], [id number], [place] tel:[phone] [facility] [place] No Information Alan Benito. [address] [place] [address], [id number], [place]. tel:[phone] [facility] [place], [address], [id number], [place] tel:[phone] [facility] Encounter for elect tony termination of [place]. [address] [place], [place], [id number]. tel:[phone] Referring Provider: Shanique Zuñiga, [address] [place], [place], [id number]. tel:[phone] [facility] [place], [address], [id number], [place] tel:[phone] [facility] Inapprop chg quanti tav hCG in early Rahat Stephanie Sully. [address] [place], [place], [id number], [place]. tel:[phone] Referring Provider: Stephanie Giang, [address] [place] [address], [id number]. tel:[phone] Provider: ANUSHKA Nurse/CA. [facility], [address] [place] [address], [id number], [place] tel:[phone] ANKITAMDALBER Daphne Encounter for pregn evelina test, result positiveProblems related to unwanted pregnancyEncounter for elective termination of pregnancyFailed attempted termination of w/o complicationEncounter for oth general cnsl and advice on contraceptionEnctr srvlnc transdermal patch hormonal contraceptive device [place]. [address] [place] [address], [id number], [place]. tel:[phone] Referring Provider: Melissa Horowitz, [address] [place] [address], [id number]. tel:[phone] [facility], [address] [place] [address], [id number], [place] tel:[phone] [facility] Inapprop chg quanti tav hCG in early Carlos Manuel Hong. [address] [place], [place], [id number], [place]. tel:[phone] Consulting Provider: ANUSHKA Nurse/CA. [facility], [address] [place] [address], [id number], [place] tel:[phone] PP[facility] [place] Inapprop chg quanti tav hCG in early pregnancyEncntr for f/u exam aft trtmt for cond oth than malig neoplm Carlos Manuel Hong. [address] [place], [place], [id number], [place]. tel:[phone] Referring Provider: Melissa Horowitz, [address] [place] [address], [id number]. tel:[phone] Provider: ANUSHKA Nurse/CA. [facility], [address] [place] [address], [id number], [place] tel:[phone] ANUSHKA Daphne Encounter for pregn evelina test, result positiveEncounter for oth general cnsl and advice on contraceptionProblems related to unwanted pregnancyEncounter for elective termination of Enctr for init prescription of patch hormonal contracep devOther sex counseling Rahat Virk. [address] [place] [address], [id number], [place]. tel:[phone] Referring Provider: Stephanie Giang, [address] [place] [address], [id number]. tel:[phone] [facility], [address] [place] [address], [id number], [place] tel:[phone] ANUSHKA Daphne Encounter for pregn evelina test, result positivePrecipitous drop in hematocritProblems related to unwanted pregnancyEncounter for elective termination of pregnancyEncounter for oth general cnsl and advice on contraceptionOther sex counselingPelvic and perineal painEncntr screen for infections w sexl mode of transmiss Carlos Manuel Hong. [address] [place] [address], [id number], [place]. tel:[phone] Referring Provider: Melissa Horowitz, [address] [place] [address], [id number]. tel:[phone] [facility], [address] [place] [address], [id number], [place] tel:[phone] [facility] Encntr screen for i nfections w sexl mode of transmissHuman immunodeficiency virus [HIV] counselingEncounter for test, result negativeEncntr for sock folder exam (general) (routine) w/o abn findingsEnctr for init prescription of patch hormonal contracep devEncounter for oth general cnsl and advice on contraceptionOther sex counseling Rukhsana Hamm. [address] [place] [address], [id number], [place]. tel:[phone] Referring Provider: Noris Milian, [address] [place] [address], [id number]. tel:[phone] [facility], [address] [place] [address], [id number], [place] tel:[phone] [facility] Other sex counselin gEncounter for oth general cnsl and advice on contraceptionEncounter for removal of intrauterine contraceptive deviceEnctr srvlnc transdermal patch hormonal contraceptive device Rukhsana Hamm. [address] [place] [address], [id number], [place]. tel:[phone] Referring Provider: Noris Milian, [address] [place], [place], [id number]. tel:[phone] [facility], [address] [place] [address], [id number], [place] tel:[phone] [facility] [place] Other sex counselin gEncounter for oth general cnsl and advice on contraceptionEncntr screen for infections w sexl mode of transmissHigh risk heterosexual behaviorEnctr for init prescription of patch hormonal contracep devEncounter for test, result negativeHuman immunodeficiency virus [HIV] counseling Rukhsana Hamm. [address] [place] [address], [id number], [place]. tel:[phone] Referring Provider: Noris Milian, [address] [place] [address], [id number]. tel:[phone] [facility], [address] [place] [address], [id number], [place] tel:[phone] [facility] Pruritus vulvaeUnsp ecified contact dermatitis, unspecified causeEncounter for oth general cnsl and advice on contraception King Judith. [address] [place], [place], [id number]. tel:[phone] Referring Provider: Judith Bassett, [address] [place], [place], [id number]. tel:[phone] [facility], [address] [place] [address], [id number], [place] tel:[phone] [facility] Human immunodeficie ncy virus [HIV] counselingEncounter for oth general cnsl and advice on contraceptionEncounter for routine checking of intrauterine contracep devEncntr for sock folder exam (general) (routine) w/o abn findings King [place]. [address] [place], [place], [id number]. tel:[phone] Referring Provider: Judith Bassett, [address] [place], [place], [id number]. tel:[phone] [facility], [address] [place] [address], [id number], [place] tel:[phone] [facility] Encounter for pregn evelina test, result negativeEncounter for oth general cnsl and advice on contraceptionEncounter for routine checking of intrauterine contracep devEncounter for insertion of intrauterine contraceptive deviceHigh risk heterosexual behavior Dave Rocha. [address] [place], [place], [id number], [place]. tel:[phone] Referring Provider: Josefina Dallas, [address] [place] [address], [id number]. tel:[phone] [facility], [address] [place] [address], [id number], [place] tel:[phone] [facility] Encounter for pregn evelina test, result negativeEncntr screen for infections w sexl mode of transmissHigh risk heterosexual behaviorEncounter for oth general cnsl and advice on contraception Zena Doran. [address] [place], [place], [id number], [place]. tel:[phone] Referring Provider: Anrdeea Freitas, [address] [place], [place], [id number]. tel:[phone] [facility], [address] [place], [place], [id number], [place] tel:[phone] [facility] HIV CounselingPT, N egativeBVFamily Planning Counseling Dave Rocha. [address] [place] [address], [id number], [place]. tel:[phone] Family History Family Member Diagnosis Age At [...] Insurance type Covered libertarian ID Authorization(s ) [facility] CI [id number] Social History Type Description Quantity Date Captured [...] Date No Information Medical Equipment Description Device [place] Device Identifier Effective Leoncio es (start - stop) Status No Information Mental Status Date Cognitive Assessment No Information Health Concerns Observation Date No Information Concern Status Date No Information Physical Examination Exam Findings Details No Information
--- OUTSIDE RECORDS SUMMARY | 2021-05-02 20:19 | CCD ---
Author Author [facility] Organization [facility] Address Unknown Phone Unavailable Care Team Providers Care Print Designer Name Role Phone Gaby Milian PA Unavailable Unavailable Gaby Milian PA Unavailable Unavailable CoinjockGaby sotoey PA Unavailable Unavailable [place]inj[place], Gaby Thomasey PA Unavailable Unavailable [place]inj[place], Gaby Noris PA Unavailable Unavailable [place]inj[place], Gaby Noris PA Unavailable Unavailable [place]injock, Gaby Noris PA Unavailable Unavailable Coinjock, J Noris PA Unavailable Unavailable Coinjock, J Noris PA Unavailable Unavailable Coinjock, J Noris PA Unavailable Unavailable [place]injock, Gaby Noris PA Unavailable Unavailable [place]inj[place], Gaby Noris PA Unavailable Unavailable Coinjock, J Noris PA Unavailable Unavailable Coinjock, J Noris PA Unavailable Unavailable Gaby Milian Noris PA Unavailable Unavailable [place]injock, J Noris PA Unavailable Unavailable Coinjock, J Noris PA Unavailable Unavailable Coinjock, J Noris PA Unavailable Unavailable [place]injock, Gaby Noris PA Unavailable Unavailable Coinjock, J Noris PA Unavailable Unavailable Coinjock, Gaby Noris PA Unavailable Unavailable CoinjockGaby Noris PA Unavailable Unavailable Mestad, E Shanique [...] E Shanique Unavailable Unavailable LAROCK, J GILDARDO FIELD STAFF MANAGER Unavailable Unavailable LAROCK, Gaby EWING FIELD STAFF MANAGER Unavailable Unavailable LAROCK, Gaby EWING FIELD STAFF MANAGER Unavailable Unavailable LAROCK, J GILDARDO FIELD STAFF MANAGER Unavailable Unavailable LAROCK, Gaby EWING FIELD STAFF MANAGER Unavailable Unavailable LAROCK, Gaby EWING FIELD STAFF MANAGER Unavailable Unavailable LAROCK, Gaby EWING FIELD STAFF MANAGER Unavailable Unavailable LAROCK, Gaby EWING FIELD STAFF MANAGER Unavailable Unavailable LAROCK, Gaby EWING FIELD STAFF MANAGER Unavailable Unavailable LAROCK, Gaby EWING FIELD STAFF MANAGER Unavailable Unavailable LAROCK, J GILDARDO FIELD STAFF MANAGER Unavailable Unavailable LAROCK, J GILDARDO FIELD STAFF MANAGER Unavailable Unavailable LAROCK, J GILDARDO FIELD STAFF MANAGER Unavailable Unavailable LAROCK, J GILDARDO FIELD STAFF MANAGER Unavailable Unavailable LAROCK, J GILDARDO FIELD STAFF MANAGER Unavailable Unavailable LAROCK, Gaby EWING FIELD STAFF MANAGER Unavailable Unavailable LAROCK, Gaby EWING FIELD STAFF MANAGER Unavailable Unavailable LAROCK, Gaby EWING FIELD STAFF MANAGER Unavailable Unavailable LAROCK, Gaby EWING FIELD STAFF MANAGER Unavailable Unavailable LAROCK, Gaby EWING FIELD STAFF MANAGER Unavailable Unavailable LAROCK, Gaby EWING FIELD STAFF MANAGER Unavailable Unavailable LAROCK, Gaby EWING FIELD STAFF MANAGER Unavailable Unavailable Feola, T Tiffanie PA Unavailable [...] Feola, T Tiffanie PA Unavailable Unavailable Green FIELD STAFF MANAGER FIELD STAFF MANAGER, Melissa Unavailable Unavailable Green FIELD STAFF MANAGER FIELD STAFF MANAGER, Melissa Unavailable Unavailable Green FIELD STAFF MANAGER FIELD STAFF MANAGER, Melissa Unavailable Unavailable Green FIELD STAFF MANAGER FIELD STAFF MANAGER, Melissa Unavailable Unavailable Green FIELD STAFF MANAGER FIELD STAFF MANAGER, Melissa Unavailable Unavailable Alan, Bianca Benito MD [...] Unavailable Alan, Bianca Benito MD Unavailable Unavailable Alna, Bianca Benito MD Unavailable Unavailable Alan, Bianca [...] is protected by Article 27-F of the [facility] Public Health law. If you continue you may have access to information: Regarding HIV / AIDS; Provided by facilities licensed or operated by the [facility] Office of Mental Health; or Provided by the [facility] Office for People With Developmental Disabilities. If such information is present, then the following [facility] mandated warning applies: This information has been [...] law may result in a fine or fci sentence or both. A general authorization for the release of medical or other information is NOT sufficient authorization for further disc losure. Family History Family Member Name Family Member Gender Family Member Status Date o f Status Description Data Source(s) Unknown Female Diagnosis 12/27/2015 12:00:00 AM EDT [facility] ([facility]) Unknown Female Diagnosis 12/27/2015 12:00:00 AM EDT [facility] ([facility]) Encounters Encounter Providers Location Date Indications Data Source(s ) OFFICE VISIT, ESTOutpatient Attender: Noris [place] 04/12/2021 02:50:00 PM EST - 04/12/2021 02:50:00 PM EST Female pelvic inflammatory disease, unspecifiedPelvic and perineal painEncounter for oth general cnsl and advice on contraceptionEncntr screen for infections w sexl mode of transmissOther sex counselingEncounter for test, result negativeEncounter for surveillance of injectable contraceptive [facility] ([facility]) Female pelvic inflammatory disease, unsp ecified Pelvic and perineal pain Encounter for oth general cnsl and advic e on contraception Encntr screen for infections w sexl mode of transmiss Other sex counseling Encounter for test, result neg ative Encounter for surveillance of injectable contraceptive Unknown [address] [facility], [facility] [address] 03/30/2021 12:00:00 AM EDT eCW1 (Counts include 234 beds at the [facility]) Attender: Jigna Torres 08:42:00 AM EDT - 03/09/2021 08:42:00 AM EDT [facility] ([facility]) Attender: Jigna Torres 04/2021 03:37:00 PM EDT - 03/08/2021 03:37:00 PM EDT [facility] ([facility]) Attender: Melissa Torres 1 04:44:00 PM EDT - 03/07/2021 04:44:00 PM EDT [facility] ([facility]) OutpatientOFFICE VISIT, EST Attender: Melissa Torres 03/02/2021 11:45:00 AM EDT - 03/02/2021 11:45:00 AM EDT Other sex counselingEncounter for surveillance of injectable contraceptiveEncounter for oth general cnsl and advice on contraceptionAcute cystitis without hematuriaDysuriaFrequency of micturitionUrgency of urinationPelvic and perineal pain [facility] ([facility]) Other sex counseling Encounter for surveillance of injectable contraceptive Encounter for oth general cnsl and advic e on contraception Acute cystitis without hematuria Dysuria Frequency of micturition Urgency of urination Pelvic and perineal pain Unknown [address] [facility] [address] 02/15/2021 12:00:00 AM EDT eCW1 (Counts include 234 beds at the [facility]) OFFICE VISIT, ESTOutpatient Attender: Stephanie hollyrtpasquale 01/25/2021 10:30:00 AM EDT - 01/25/2021 10:30:00 AM EDT Encounter for initial prescription of injectable contracepEncounter for oth general cnsl and advice on contraceptionHuman immunodeficiency virus [HIV] counselingEncounter for screening for human immunodeficiency virusEncntr screen for infections w sexl mode of transmissOther sex counseling [facility] ([facility]) Encounter for initial prescription of in jectable contracep Encounter for oth general cnsl and advic e on contraception Human immunodeficiency virus [HIV] couns eling Encounter for screening for human immuno deficiency virus Encntr screen for infections w sexl mode of transmiss Other sex counseling Attender: Stephanie Torres 07:48:00 AM EDT - 01/20/2021 07:48:00 AM EDT [facility] ([facility]) Attender: Stephanie Torres 06:54:00 PM EDT - 01/19/2021 06:54:00 PM EDT [facility] ([facility]) Attender: Jigna [place] 0 01/19/2021 01:08:00 PM EDT - 01/19/2021 01:08:00 PM EDT [facility] ([facility]) Attender: David Alicea 12/31/2020 12:00:00 AM EDT [facility] ([facility]) Extended Individual Psychotherapy - 45 min Attender: Bogdan Alicea [facility] 12/28/2020 05:00:00 AM EDT - 12/28/2020 05:00:00 AM EDT [facility] ([facility]) Attender: David Alicea 12/15/2020 12:00:00 AM EDT [facility] ([facility]) Attender: Stephanie REVELES Donovan 08:56:00 AM EDT - 12/13/2020 08:56:00 AM EDT [facility] ([facility]) Extended Individual Psychotherapy - 45 min Attender: Bogdan mahmood [facility] 12/13/2020 02:00:00 AM EDT - 12/13/2020 02:00:00 AM EDT [facility] ([facility]) Attender: Jigna [place] 12:47:00 PM EDT - 12/10/2020 12:47:00 PM EDT [facility] ([facility]) Attender: David Alicea 12/09/2020 12:00:00 AM EDT [facility] ([facility]) Extended Individual Psychotherapy - 45 min Attender: Bogdan mahmood [facility] 12/07/2020 01:00:00 AM EDT - 12/07/2020 01:00:00 AM EDT [facility] ([facility]) Attender: David Alicea 11/16/2020 12:00:00 AM EDT [facility] ([facility]) Extended Individual Psychotherapy - 45 min Attender: Bogdan mahmood [facility] 11/15/2020 05:00:00 AM EDT - 11/15/2020 05:00:00 AM EDT [facility] ([facility]) Outpatient [address] [facility] [address] 10/28/2020 12:00:00 AM EDT eCW1 (Counts include 234 beds at the [facility]) Unknown [address] [facility] [address] 10/28/2020 12:00:00 AM EDT eCW1 (Counts include 234 beds at the [facility]) Outpatient Attender: GILDARDO WHITMORE NP 12/2020 05:27:24 PM EDT - 10/02/2020 06:17:22 PM EDT [facility] ([facility] ) Attender: Shanique Zuñiga PPNCNY Donovan 10/01/19 08:40:00 AM EDT - 09/30/2020 08:40:00 AM EDT Encounter for elective termination of [facility] ([facility]) Encounter for elective termination of pr egnancy Attender: Stephanie OLIVER PPNCALBER Torres 11:04:00 AM EDT - 09/21/2020 11:04:00 AM EDT [facility] ([facility]) Attender: Stephanie OLIVER PPNCALBER Donovan 09:50:00 AM EDT - 09/20/2020 09:50:00 AM EDT Inapprop chg quantitav hCG in early [facility] ([facility]) Inapprop chg quantitav hCG in early preg davey Attender: Melissa Torres 0 09/17/2020 11:01:00 AM EDT - 09/17/2020 11:01:00 AM EDT [facility] ([facility]) OutpatientOFFICE VISIT, EST Post AB Attender: Melissa Torres 09/16/2020 01:00:00 PM EDT - 09/16/2020 01:00:00 PM ED T Enctr srvlnc transdermal patch hormonal contraceptive deviceEncounter for oth general cnsl and advice on contraceptionFailed attempted termination of w/o complicationEncounter for elective termination of pregnancyProblems related to unwanted pregnancyEncounter for test, result positive [facility] ([facility]) Enctr srvlnc transdermal patch hormonal contraceptive device Encounter for oth general cnsl and advic e on contraception Failed attempted termination of pregnanc y w/o complication Encounter for elective termination of pr egnancy Problems related to unwanted Encounter for test, result pos itive Outpatient Attender: Tiffanie OLIVER 021 05:23:32 PM EDT - 09/15/2020 06:59:59 PM EDT [facility] ([facility] ) Attender: Melissa REVELES Donovan 0 09/15/2020 09:45:00 AM EDT - 09/15/2020 09:45:00 AM EDT [facility] ([facility]) Attender: Melissa Horowitz FIELD STAFF MANAGER FIELD STAFF MANAGER PPNCNY Donovan 0 09/13/2020 09:20:00 AM EDT - 09/13/2020 09:20:00 AM EDT Inapprop chg quantitav hCG in early [facility] ([facility]) Inapprop chg quantitav hCG in early preg davey Attender: Melissa Horowitz FIELD STAFF MANAGER FIELD STAFF MANAGER PPNCNY Donovan 0 09/13/2020 07:07:00 AM EDT - 09/13/2020 07:07:00 AM EDT [facility] ([facility]) Attender: Jigna Torres 08:47:00 AM EDT - 09/10/2020 08:47:00 AM EDT [facility] ([facility]) Attender: Melissa Horowitz FIELD STAFF MANAGER FIELD STAFF MANAGER PPNCNY Donovan 0 09/09/2020 06:00:00 PM EDT - 09/09/2020 06:00:00 PM EDT Encntr for f/u exam aft trtmt for cond o th than malig neoplmInapprop chg quantitav hCG in early [facility] ([facility]) Encntr for f/u exam aft trtmt for cond o th than malig neoplm Inapprop chg quantitav hCG in early preg davey Attender: Jigna Torres 12:08:00 PM EDT - 09/09/2020 12:08:00 PM EDT [facility] ([facility]) Attender: Stephanie Torres 02:59:00 PM EDT - 09/08/2020 02:59:00 PM EDT [facility] ([facility]) Attender: Stephanie OLIVER PPNCNY Donovan 08:45:00 AM EDT - 09/07/2020 08:45:00 AM EDT Other sex counselingEnctr for init presc ription of patch hormonal contracep devEncounter for elective termination of pregnancyProblems related to unwanted pregnancyEncounter for oth general cnsl and advice on contraceptionEncounter for test, result positive [facility] ([facility]) Other sex counseling Enctr for init prescription of patch hor monal contracep dev Encounter for elective termination of pr egnancy Problems related to unwanted Encounter for oth general cnsl and advic e on contraception Encounter for test, result pos itive Attender: Jigna Gil 0 08/23/2020 10:20:00 AM EDT - 08/23/2020 10:20:00 AM EDT [facility] ([facility]) Attender: Melissa Horowitz NP FIELD STAFF MANAGER ANUSHKA Torres 0 08/19/2020 08:27:00 AM EDT - 08/19/2020 08:27:00 AM EDT [facility] ([facility]) OutpatientOFFICE VISIT, EST Attender: Melissa Horowitz NP FIELD STAFF MANAGER ANUSHKA Torres 08/18/2020 01:00:00 PM EDT - 08/18/2020 01:00:00 PM EDT Encntr screen for infections w sexl mode of transmissPelvic and perineal painOther sex counselingEncounter for oth general cnsl and advice on contraceptionEncounter for elective termination of pregnancyProblems related to unwanted Precipitous drop in hematocritEncounter for test, result positive [facility] ([facility]) Encntr screen for infections w sexl mode of transmiss Pelvic and perineal pain Other sex counseling Encounter for oth general cnsl and advic e on contraception Encounter for elective termination of pr egnancy Problems related to unwanted Precipitous drop in hematocrit Encounter for test, result pos itive Outpatient [address] [facility] [address] 07/30/2020 12:00:00 AM EST eCW1 (Counts include 234 beds at the [facility]) Attender: Stephanie Torres 12/2020 04:22:00 PM EST - 07/05/2020 04:22:00 PM EST [facility] ([facility]) Attender: Jigna Torres 09/2020 10:45:00 AM EST - 07/02/2020 10:45:00 AM EST [facility] ([facility]) OutpatientPREV VISIT, EST, AGE 18-39 Attender: Noris Torres 05/10/2020 11:20:00 AM EST - 05/10/2020 11:20:00 AM ES T Other sex counselingEncounter for oth general cnsl and advice on contraceptionEnctr for init prescription of patch hormonal contracep devEncntr for family therapist exam (general) (routine) w/o abn findingsEncounter for test, result negativeHuman immunodeficiency virus [HIV] counselingEncntr screen for infections w sexl mode of transmiss [facility] ([facility]) Other sex counseling Encounter for oth general cnsl and advic e on contraception Enctr for init prescription of patch hor monal contracep dev Encntr for family therapist exam (general) (routine) w/o abn findings Encounter for test, result neg ative Human immunodeficiency virus [HIV] couns eling Encntr screen for infections w sexl mode of transmiss Attender: PAN Torres 1 09:48:00 AM EDT - 03/12/2020 09:48:00 AM EDT [facility] ([facility]) Immunizations Vaccine Date Status Description Data Source(s) COVID-19 dose #2 given elsewhere Unspecified 10/27/2020 03:1 6:00 PM EDT completed eCW1 (Counts include 234 beds at the [facility]) COVID-19 dose #2 given elsewhere Unspecified 10/27/2020 03:1 6:00 PM EDT completed eCW1 (Counts include 234 beds at the [facility]) COVID-19 dose #2 given elsewhere Unspecified 10/27/2020 03:1 6:00 PM EDT completed eCW1 (Counts include 234 beds at the [facility]) COVID-19 dose #2 given elsewhere Unspecified 10/27/2020 03:1 6:00 PM EDT completed eCW1 (Counts include 234 beds at the [facility]) COVID-19 VACCINE Pfizer 10/27/2020 12:00:00 AM EDT completed [facility] Vaccine Series Complete: YESThis Data wa s Submitted to [facility] Via [facility]ceive. COVID-19 dose #1 given elsewhere Unspecified 10/04/2020 03:1 7:00 PM EDT completed eCW1 (Counts include 234 beds at the [facility]) COVID-19 dose #1 given elsewhere Unspecified 10/04/2020 03:1 7:00 PM EDT completed eCW1 (Counts include 234 beds at the [facility]) COVID-19 dose #1 given elsewhere Unspecified 10/04/2020 03:1 7:00 PM EDT completed eCW1 (Counts include 234 beds at the [facility]) COVID-19 dose #1 given elsewhere Unspecified 10/04/2020 03:1 7:00 PM EDT completed eCW1 (Counts include 234 beds at the [facility]) COVID-19 VACCINE Pfizer 10/04/2020 12:00:00 AM EDT completed [facility] Vaccine Series Complete: NOThis Data was Submitted to [facility] Via [facility] [employer] Receive. Medications Medication Brand Name Start Date Product Form Dose Route Admi nistrative Instructions Pharmacy Instructions Status Indications Reaction Description Data Source(s) Ceftriaxone 500 MG Injection ceftriaxone 500 mg soluti on for injection ceftriaxone 500 mg solution for injection 04/12/2021 12:00:00 AM EST completed Inject 500 mg total once with 1ml of 1% lidocaine administer to pt in clinic [facility] ([facility]) Metronidazole 500 MG Oral Tablet metronidazole 500 mg tablet metronidazole 500 mg tablet 04/12/2021 12:00:00 AM EST active 1 tab po bid x 14d (#28) [facility] ([facility]) Metronidazole 500 MG Oral Tablet metronidazole 500 mg tablet metronidazole 500 mg tablet 04/12/2021 12:00:00 AM EST complete d 1 tab po bid x 14d (#28) [facility] ([facility]) Medication administered onsite Doxycycline Monohydrate 100 MG Oral Tabl et doxycycline monohydrate 100 mg tablet doxycycline monohydrate 100 mg tablet 04/12/2021 12:00:00 AM EST active 1 tab po bid x 14days (#28) [facility] ([facility]) medroxyprogesterone acetate 150 MG/ML In jectable Suspension [Depo-Provera] Depo- Provera 150 mg/mL intramuscular suspension Depo-Provera 150 mg/mL intramuscular suspension 04/12/2021 12:00:00 AM EST active 1 ML medroxyprogesterone acetate 150 MG/ML Injection [Depo-Provera] [facility] ([facility]) NITROFURANTOIN, MACROCRYSTALS 25 MG / Ni trofurantoin, Monohydrate 75 MG Oral Capsule nitrofurantoin monohydrate/macrocrystals 100 mg capsule nitrofurantoin monohydrate/macrocrystals 100 mg capsule 03/02/2021 12:00:00 AM EDT completed 1 tab po BID x 5 days [facility] ([facility]) medroxyprogesterone acetate 150 MG/ML In jectable Suspension medroxyprogesterone 150 mg/mL intramuscular suspension medroxyprogesterone 150 mg/mL intramuscu lar suspension 01/25/2021 12:00:00 AM EDT active IM every 10-13 weeks [facility] ([facility]) 168 HR Ethinyl Estradiol 0.36164 MG/HR / norelgestromin 0.99199 MG/HR Transdermal Patch [Xulane] Xulane 150 mcg-35 mcg/24 hr transdermal patch Xulane 150 mcg-35 mcg/24 hr transdermal patch 01/20/2021 12:00:00 AM EDT active 168 HR ethinyl estra diol 0.14815 MG/HR / norelgestromin 0.34187 MG/HR Transdermal System [Xulane] [facility] ([facility]) 168 HR Ethinyl Estradiol 0.04562 MG/HR / norelgestromin 0.20239 MG/HR Transdermal Patch [Xulane] Xulane 150 mcg-35 mcg/24 hr transdermal patch Xulane 150 mcg-35 mcg/24 hr transdermal patch 01/20/2021 12:00:00 AM EDT completed 168 HR ethinyl estra diol 0.64786 MG/HR / norelgestromin 0.59991 MG/HR Transdermal System [Xulane] [facility] ([facility]) Medication administered onsite 168 HR Ethinyl Estradiol 0.04119 MG/HR / norelgestromin 0.19570 MG/HR Transdermal Patch [Xulane] Xulane 150 mcg-35 mcg/24 hr transdermal patch Xulane 150 mcg-35 mcg/24 hr transdermal patch 01/20/2021 12:00:00 AM EDT completed 168 HR ethinyl estra diol 0.76905 MG/HR / norelgestromin 0.12581 MG/HR Transdermal System [Xulane] [facility] ([facility]) Medication administered onsite 168 HR Ethinyl Estradiol 0.28005 MG/HR / norelgestromin 0.48083 MG/HR Transdermal Patch [Xulane] Xulane 150 mcg-35 mcg/24 hr transdermal patch Xulane 150 mcg-35 mcg/24 hr transdermal patch 12/10/2020 12:00:00 AM EDT active 168 HR ethinyl estra diol 0.25215 MG/HR / norelgestromin 0.45380 MG/HR Transdermal System [Xulane] [facility] ([facility]) Lorazepam 0.5 MG Oral Tablet lorazepam 0.5 mg tablet lorazep am 0.5 mg tablet 09/30/2020 12:00:00 AM EDT active 1- 4 tabs po in clinic prior to procedure [facility] ([facility]) Misoprostol 0.2 MG Oral Tablet misoprostol 200 mcg tab let misoprostol 200 mcg tablet 09/30/2020 12:00:00 AM EDT active 2 tabs buccally administer in clinic [facility] ([facility]) Metronidazole 500 MG Oral Tablet metronidazole 500 mg tablet metronidazole 500 mg tablet 09/30/2020 12:00:00 AM EDT completed 1 tab po x 1 [facility] ([facility]) 1 ML Ketorolac Tromethamine 30 MG/ML Car tridge ketorolac 30 mg/mL injection cartridge ketorolac 30 mg/mL injection cartridge 09/30/2020 12:00:00 AM EDT completed im administer to pt in clinic [facility] ([facility]) Ondansetron 4 MG Oral Tablet ondansetron HCl 4 mg tabl et ondansetron HCl 4 mg tablet 09/16/2020 12:00:00 AM EDT completed 1 tab po every 4 hours prn [facility] ([facility]) Misoprostol 0.2 MG Oral Tablet misoprostol 200 mcg tab let misoprostol 200 mcg tablet 09/16/2020 12:00:00 AM EDT completed 4 tabs buccally 24-48 hrs after mifepristone (#4) [facility] ([facility]) Mifepristone 200 MG Oral Tablet [Mifeprex] Mifeprex 20 0 mg tablet Mifeprex 200 mg tablet 09/16/2020 12:00:00 AM EDT complete d mifepristone 200 MG Oral Tablet [Mifeprex] [facility] ([facility]) 168 HR Ethinyl Estradiol 0.47336 MG/HR / norelgestromin 0.18185 MG/HR Transdermal Patch [Xulane] Xulane 150 mcg-35 mcg/24 hr transdermal patch Xulane 150 mcg-35 mcg/24 hr transdermal patch 09/07/2020 12:00:00 AM EDT active 168 HR ethinyl estra diol 0.50545 MG/HR / norelgestromin 0.16216 MG/HR Transdermal System [Xulane] [facility] ([facility]) Mifepristone 200 MG Oral Tablet [Mifeprex] Mifeprex 20 0 mg tablet Mifeprex 200 mg tablet 09/07/2020 12:00:00 AM EDT complete d mifepristone 200 MG Oral Tablet [Mifeprex] [facility] ([facility]) Acetaminophen 300 MG / Codeine Phosphate 30 MG Oral Tablet acetaminophen 300 mg- codeine 30 mg tablet acetaminophen 300 mg-codeine 30 mg tablet 09/07/2020 12:00:00 AM EDT completed 1-2 t abs po every 4 hours prn pain [facility] ([facility]) Misoprostol 0.2 MG Oral Tablet misoprostol 200 mcg tab let misoprostol 200 mcg tablet 09/07/2020 12:00:00 AM EDT completed 4 tabs buccally 24-48 hrs after mifepristone (#4) [facility] ([facility]) Ibuprofen 800 MG Oral Tablet ibuprofen 800 mg tablet ibuprof en 800 mg tablet 09/07/2020 12:00:00 AM EDT completed 1 tab po every 8 hours prn [facility] ([facility]) Ondansetron 4 MG Oral Tablet ondansetron HCl 4 mg tabl et ondansetron HCl 4 mg tablet 09/07/2020 12:00:00 AM EDT completed 1 tab po every 4 hours prn [facility] ([facility]) 168 HR Ethinyl Estradiol 0.17258 MG/HR / norelgestromin 0.34941 MG/HR Transdermal Patch [Xulane] Xulane 150 mcg-35 mcg/24 hr transdermal patch Xulane 150 mcg-35 mcg/24 hr transdermal patch 05/10/2020 12:00:00 AM EST active 168 HR ethinyl estra diol 0.21216 MG/HR / norelgestromin 0.06418 MG/HR Transdermal System [Xulane] [facility] ([facility]) 168 HR Ethinyl Estradiol 0.16664 MG/HR / norelgestromin 0.87482 MG/HR Transdermal Patch [Xulane] Xulane 150 mcg-35 mcg/24 hr transdermal patch Xulane 150 mcg-35 mcg/24 hr transdermal patch 01/20/2020 12:00:00 AM EDT active 168 HR ethinyl estra diol 0.56769 MG/HR / norelgestromin 0.17586 MG/HR Transdermal System [Xulane] [facility] ([facility]) Trazodone Hydrochloride 50 MG Oral Tablet trazodone 50 mg tablet trazodone 50 mg tablet 1.00 {tablet} ORAL completed take 1 tablet by oral route every day at bedtime [facility] ([facility]) PRN Escitalopram 10 MG Oral Tablet [Lexapro] Lexapro 10 mg tablet Lexapro 10 mg tablet 1 {tablet} ORAL completed esc italopram 10 MG Oral Tablet [Lexapro] [facility] ([facility]) buspirone hydrochloride 10 MG Oral Tablet buspirone 10 mg tablet buspirone 10 mg tablet 1 {tablet} ORAL completed ta ke 1 tablet by oral route 2 times every day [facility] ([facility]) Insurance Providers Payer name Policy type / Coverage type Policy ID Covered alliance party ID Covered alliance party's relationship to soto Policy [place] Plan Information SALAZAR I [id number] Self [id number] MEDICAID [id number] SP [id number] [place] Medicaid/CHP/FHP Commercial [id number] Self [id number] SALAZAR [id number] SP [id number] 000 Medicaid S [id number] S [id number] Medicaid Dental S [id number] S [id number] [facility] Health Maintenance Organization (HMO) [id number] Self [id number] [facility] Medigap Part B [id number] Self [id number] Managed Care - Community Plan [facility] P [id number] S [id number] Managed Care - Community Plan [facility] P [id number] S [id number] Medicaid S [id number] S [id number] Medicaid [place] [id number] Self [id number] Managed Care - Community Plan [facility] P [id number] S [id number] Managed Care - Community Plan [facility] P [id number] S [id number] Managed Care - [facility] Community Plan P [id number] S [id number] [facility] Commercial Insurance Co. [id number] Self [id number] SELF PAY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 ([facility]) Gestational Age Expected hCG values (m IU/mL)<1 Week: 5-501-2 Weeks: 50-5002-3 Weeks: 100-71176-5 Weeks: 525-838895-0 Weeks: 3790-359673-8 Weeks: 41422-9182750-9 Weeks: 17899-7119565-8 Months: 59379- [phone] < 10 The table above provides only [...] cleared or approved bythe FDA or the antisqueak worker of the assay.

Performed by:
CDSid ([id number])

ID Date Data Source [id number] 09/07/2020 09:25:35 AM EDT [facility] ([facility]) Name Value Range Interpretation Code Description Data Lali rce(s) Supporting Document(s) 13.10 gm/dL [facility] ID Date Data Source [id number] 09/07/2020 09:05:20 AM EDT [facility] ([facility]) Name Value Range Interpretation Code Description Data Lali rce(s) Supporting Document(s) PositiveLot: [id number]: 02/24/2022 Abnormal (applies to non-numeric results) [facility] ID Date Data Source [id number] 09/07/2020 12:00:00 AM EDT [facility] Name Value Range Interpretation Code Description Data Lali rce(s) Supporting Document(s) Specimen unsatisfactory for diagnosis:Separation problems due to incorrect specimen handling prior to centrifugation or due to improper centrifugation Significant change up hCG Quantitative [facility] ([facility]) ID Date Data Source [id number] 08/18/2020 01:49:52 PM EDT [facility] ([facility]) Name Value Range Interpretation Code Description Data Lali rce(s) Supporting Document(s) PositiveLot: [id number]: 02/24/2022 Abnormal (applies to non-numeric results) High Sensitivity Urine Test [facility] ([facility]) ID Date Data Source [id number] 08/18/2020 01:38:40 PM EDT [facility] ([facility]) Name Value Range Interpretation Code Description Data Lali rce(s) Supporting Document(s) 13.10 gm/dL Hemoglobin [facility] ([facility]) ID Date Data Source [id number] 08/18/2020 01:21:44 PM EDT [facility] ([facility]) Name Value Range Interpretation Code Description Data Lali rce(s) Supporting Document(s) NegativeLot: [id number]: 02/24/2022 High Sensitivity Urine Test [facility] ([facility]) ID Date Data Source [id number] 08/18/2020 12:00:00 AM EDT [facility] ([facility]) Name Value Range Interpretation Code Description Data Lali rce(s) Supporting Document(s) Negative Normal (applies to non-numeric resul ts) Urine CT/GC Combo - GC [facility] ([facility]) : No Performed by: CDD ([id number]) ID Date Data Source [id number] 08/18/2020 12:00:00 AM EDT [facility] ([facility]) Name Value Range Interpretation Code Description Data Lali rce(s) Supporting Document(s) Negative Normal (applies to non-numeric resul ts) Urine CT/GC Combo - CT [facility] ([facility]) ID Date Data Source [id number] 08/18/2020 12:00:00 AM EDT [facility] ([facility]) Name Value Range Interpretation Code Description Data Lali rce(s) Supporting Document(s) RH (D) Positive Rh Type [facility] This assay does not detect weak D.Not al l anti-D reagents detect the same partial or weak expressions of D.Therefore, depending on the reagent used for testing, the interpretation ofthe D antigen may be different from one laboratory to another or fromhistorical records.Patients should be tested for the presence of weak D if clinically indicated.: No Performed by: JUSTYNA ([id number]) ID Date Data Source [id number] 07/21/2020 11:07:00 PM EST [facility] Name Value Range Interpretation Code Description Data Lali rce(s) Supporting Document(s) SARS coronavirus 2 RNA [Presence] in Res piratory specimen by REMINGTON with probe detection NEGATIVE [facility] This lab was ordered by [facility] a nd reported by [facility]. ID Date Data Source [id number] 07/20/2020 12:00:00 AM EST [facility] Name Value Range Interpretation Code Description Data Lali rce(s) Supporting Document(s) [facility]2 [facility] was ordered by [facility] and reported by [facility]. ID Date Data Source [id number] 06/04/2020 12:00:00 AM EST [facility] Name Value Range Interpretation Code Description Data Lali rce(s) Supporting Document(s) SARS-CoV2 Rapid [facility]igen [facility] This lab was ordered by [facility] and reported by [facility]. ID Date Data Source [id number] 05/10/2020 11:41:21 AM EST [facility] ([facility]) Name Value Range Interpretation Code Description Data Lali rce(s) Supporting Document(s) NegativeLot: [id number]: 07/25/2021 High Sensitivity Urine Test [facility] ([facility]) ID Date Data Source [id number] 05/10/2020 12:00:00 AM EST [facility] ([facility]) Name Value Range Interpretation Code Description Data Lali rce(s) Supporting Document(s) Negative Normal (applies to non-numeric resul ts) Urine CT/GC Combo - GC [facility] ([facility]) : No Performed by: JUSTYNA ([id number]) ID Date Data Source [id number] 05/10/2020 12:00:00 AM EST [facility] ([facility]) Name Value Range Interpretation Code Description Data Lali rce(s) Supporting Document(s) Negative Normal (applies to non-numeric resul ts) Urine CT/GC Combo - CT [facility] ([facility]) Procedure Social History Code Duration Value Status Description Data Source(s ) Smoking 04/12/2021 12:00:00 AM EST Light tobacco smoker comple maged Light tobacco smoker [facility] ([facility]) 01/25/2021 12:00:00 AM EDT Light cigarette smoker (1-9 cigs/day) completed Light cigarette smoker (1-9 cigs/day) [facility] ([facility]) Smoking 12/31/2020 12:00:00 AM EDT Unknown if ever smoked comp leted Unknown if ever smoked [facility] ([facility]) Smoking 12/15/2020 12:00:00 AM EDT Unknown if ever smoked comp leted Unknown if ever smoked [facility] ([facility] Smoking 12/09/2020 12:00:00 AM EDT Unknown if ever smoked comp leted Unknown if ever smoked [facility] ([facility]) Smoking 11/16/2020 12:00:00 AM EDT Unknown if ever smoked comp leted Unknown if ever smoked [facility] ([facility]) Smoking 10/28/2020 12:00:00 AM EDT Current Smoker completed Curre nt Smoker eCW1 ([facility]) Smoking 10/28/2020 12:00:00 AM EDT Current Smoker completed Curre nt Smoker eCW1 ([facility]) Smoking 10/28/2020 12:00:00 AM EDT Current Smoker completed Curre nt Smoker eCW1 ([facility]) Smoking 10/28/2020 12:00:00 AM EDT Current Smoker completed Curre nt Smoker eCW1 ([facility]) Smoking 07/30/2020 12:00:00 AM EST Current Smoker completed Curre nt Smoker eCW1 ([facility]) Vital Signs ID Date Data Source [id number] Name Value Range Interpretation Code Description Data Source(s) Body height 160.02 cm 160.02 cm [facility] Body weight 54.885 kg 54.885 kg [facility] Systolic blood pressure 108 mm[Hg] 108 mm[Hg] N [facility] ([facility]) Diastolic blood pressure 72 mm[Hg] 72 mm[Hg] [facility] ([facility]) Body mass index (BMI) [Ratio] 21.43 kg/m2 21.43 kg/m2 [facility] ([facility]) Body temperature 36.67 Charla 36.67 Charla [facility] ([facility]) Body height 160.02 cm 160.02 cm [facility] Body weight 54.613 kg 54.613 kg [facility] ([facility]) Systolic blood pressure 110 mm[Hg] 110 mm[Hg] N [facility]Gen ([facility]) Diastolic blood pressure 66 mm[Hg] 66 mm[Hg] [facility] ([facility]) Body mass index (BMI) [Ratio] 21.33 kg/m2 21.33 kg/m2 [facility] ([facility]) Body height 160.02 cm 160.02 cm [facility] Body weight 57.606 kg 57.606 kg [facility] ([facility]) Systolic blood pressure 111 mm[Hg] 111 mm[Hg] N extGen ([facility]) Diastolic blood pressure 75 mm[Hg] 75 mm[Hg] [facility] ([facility]) Body mass index (BMI) [Ratio] 22.50 kg/m2 22.50 kg/m2 [facility] ([facility]) Body weight 131 [lb_av] 131 [lb_av] eCW1 ([facility]) Body height 64 [in_i] 64 [in_i] eCW1 ([facility]) Body mass index (BMI) [Ratio] 22.48 kg/m2 22.48 kg/m2 eCW1 ([facility]) Heart rate 114 /min 114 /min eCW1 ([facility]) Respiratory rate 18 /min 18 /min eCW1 ([facility]) Body temperature 99.7 [degF] 99.7 [degF] eCW1 ( [facility]) Systolic blood pressure 122 mm[Hg] 122 mm[Hg] e CW1 ([facility]) Diastolic blood pressure 64 mm[Hg] 64 mm[Hg] eCW1 ([facility]) Systolic blood pressure 117 mm[Hg] 117 mm[Hg] N [facility]Gen ([facility]) Diastolic blood pressure 80 mm[Hg] 80 mm[Hg] [facility] ([facility]) Heart rate 98 /min 98 /min [facility] ([facility]) Respiratory rate 18 /min 18 /min [facility] ([facility]) Inhaled oxygen concentration 21 % 21 % [facility] ([facility]) Systolic blood pressure 128 mm[Hg] 128 mm[Hg] N extGen ([facility]) Diastolic blood pressure 89 mm[Hg] 89 mm[Hg] [facility] ([facility]) Heart rate 77 /min 77 /min [facility] ([facility] Respiratory rate 20 /min 20 /min [facility] ([facility]) Inhaled oxygen concentration 21 % 21 % [facility] ([facility]) Systolic blood pressure 118 mm[Hg] 118 mm[Hg] N extGen ([facility]) Diastolic blood pressure 70 mm[Hg] 70 mm[Hg] Next[facility] ([facility]) Heart rate 60 /min 60 /min [facility] ([facility]) Respiratory rate 14 /min 14 /min [facility] ([facility]) Body height 160.02 cm 160.02 cm [facility] ([facility]) Body weight 60.691 kg 60.691 kg [facility] ([facility]) Systolic blood pressure 110 mm[Hg] 110 mm[Hg] N extGen ([facility]) Diastolic blood pressure 70 mm[Hg] 70 mm[Hg] Next[facility] ([facility]) Heart rate 93 /min 93 /min [facility] ([facility] Body temperature 36.06 Charla 36.06 Charla [facility] ([facility]) Respiratory rate 18 /min 18 /min [facility] ([facility]) Body mass index (BMI) [Ratio] 23.70 kg/m2 23.70 kg/m2 [facility] ([facility]) Body height 160.02 cm 160.02 cm [facility] ([facility] Body weight 62.233 kg 62.233 kg [facility] ([facility]) Systolic blood pressure 100 mm[Hg] 100 mm[Hg] N extGen ([facility]) Diastolic blood pressure 60 mm[Hg] 60 mm[Hg] [facility] ([facility]) Body mass index (BMI) [Ratio] 24.30 kg/m2 24.30 kg/m2 [facility] ([facility]) Body height 160.02 cm 160.02 cm [facility] ([facility]) Body weight 59.421 kg 59.421 kg [facility] ([facility]) Systolic blood pressure 125 mm[Hg] 125 mm[Hg] N extGen ([facility]) Diastolic blood pressure 72 mm[Hg] 72 mm[Hg] [facility] ([facility]) Body mass index (BMI) [Ratio] 23.21 kg/m2 23.21 kg/m2 [facility] ([facility]) Body height 160.02 cm 160.02 cm [facility] ([facility]) Body weight 61.144 kg 61.144 kg [facility] ([facility]) Systolic blood pressure 110 mm[Hg] 110 mm[Hg] N extGen ([facility]) Diastolic blood pressure 68 mm[Hg] 68 mm[Hg] [facility] ([facility]) Body mass index (BMI) [Ratio] 23.88 kg/m2 23.88 kg/m2 [facility] ([facility]) Body height 160.02 cm 160.02 cm [facility] ([facility]) Body weight 60.509 kg 60.509 kg [facility] ([facility]) Systolic blood pressure 102 mm[Hg] 102 mm[Hg] N extGen ([facility]) Diastolic blood pressure 68 mm[Hg] 68 mm[Hg] Next[facility] ([facility]) Body mass index (BMI) [Ratio] 23.63 kg/m2 23.63 kg/m2 [facility] ([facility]) Body height 160.02 cm 160.02 cm [facility] ([facility]) Body weight 59.421 kg 59.421 kg [facility] ([facility]) Systolic blood pressure 102 mm[Hg] 102 mm[Hg] N extGen ([facility]) Diastolic blood pressure 70 mm[Hg] 70 mm[Hg] Next[facility] ([facility]) Body mass index (BMI) [Ratio] 23.21 kg/m2 23.21 kg/m2 Next[facility] ([facility]) Body weight 125 [lb_av] 125 [lb_av] eCW1 (On license of [facility]) Body height 64 [in_i] 64 [in_i] eCW1 ([facility]) Body mass index (BMI) [Ratio] 21.45 kg/m2 21.45 kg/m2 W1 ([facility]) Heart rate 88 /min 88 /min W1 ([facility]) Respiratory rate 18 /min 18 /min eCW1 ([facility]) Body temperature 98.3 [degF] 98.3 [degF] eCW1 ( [facility]) Systolic blood pressure 120 mm[Hg] 120 mm[Hg] e CW1 ([facility]) Diastolic blood pressure 60 mm[Hg] 60 mm[Hg] eCW1 ([facility]) Body height 160.02 cm 160.02 cm [facility] ([facility]) Body weight 54.885 kg 54.885 kg [facility] ([facility]) Systolic blood pressure 118 mm[Hg] 118 mm[Hg] N extGen ([facility]) Diastolic blood pressure 67 mm[Hg] 67 mm[Hg] [facility] ([facility]) Body mass index (BMI) [Ratio] 21.43 kg/m2 21.43 kg/m2 [facility] ([facility]) Patient Treatment Plan of Care Planned Activity Planned Date Details Description Data Source (s) Metronidazole 500 MG Oral Tablet 04/12/2021 12:00:00 AM EST [facility] ([facility]) Ceftriaxone 500 MG Injection 04/12/2021 12:00:00 AM EST [facility] ([facility]) medroxyprogesterone acetate 150 MG/ML Injectable Suspe nsion [Depo-Provera] 04/12/2021 12:00:00 AM EST [facility] ([facility]) Metronidazole 500 MG Oral Tablet 04/12/2021 12:00:00 AM EST [facility] ([facility]) Doxycycline Monohydrate 100 MG Oral Tablet 04/12/2021 12:00:[address] [facility] ([facility]) NITROFURANTOIN, MACROCRYSTALS 25 MG / Ni trofurantoin, Monohydrate 75 MG Oral Capsule 03/02/2021 12:00:00 AM EDT [facility] ([facility]) medroxyprogesterone acetate 150 MG/ML Injectable Suspe nsion 01/25/2021 12:00:00 AM EDT [facility] 168 HR Ethinyl Estradiol 0.82956 MG/HR / norelgestromin 0.80027 MG/HR Transdermal Patch [Xulane] 01/20/2021 12:00:00 AM EDT [facility] ([facility]) 168 HR Ethinyl Estradiol 0.77362 MG/HR / norelgestromin 0.44645 MG/HR Transdermal Patch [Xulane] 01/20/2021 12:00:00 AM EDT [facility] ([facility]) 168 HR Ethinyl Estradiol 0.38586 MG/HR / norelgestromin 0.84537 MG/HR Transdermal Patch [Xulane] 01/20/2021 12:00:00 AM EDT [facility] ([facility]) 168 HR Ethinyl Estradiol 0.27196 MG/HR / norelgestromin 0.90005 MG/HR Transdermal Patch [Xulane] 12/10/2020 12:00:00 AM EDT [facility] ([facility]) Metronidazole 500 MG Oral Tablet 09/30/2020 12:00:00 AM EDT [facility] ([facility]) 1 ML Ketorolac Tromethamine 30 MG/ML Cartridge 09/30/2020 12:00:00 AM EDT [facility] ([facility]) Lorazepam 0.5 MG Oral Tablet 09/30/2020 12:00:00 AM EDT [facility] ([facility]) Misoprostol 0.2 MG Oral Tablet 09/30/2020 12:00:00 AM EDT [facility] ([facility]) Ondansetron 4 MG Oral Tablet 09/16/2020 12:00:00 AM EDT [facility] ([facility]) Misoprostol 0.2 MG Oral Tablet 09/16/2020 12:00:00 AM EDT [facility] ([facility]) Mifepristone 200 MG Oral Tablet [Mifeprex] 09/16/2020 12:00:00 AM E DT [facility] ([facility]) Ondansetron 4 MG Oral Tablet 09/07/2020 12:00:00 AM EDT [facility] ([facility]) Misoprostol 0.2 MG Oral Tablet 09/07/2020 12:00:00 AM EDT [facility] ([facility]) Ibuprofen 800 MG Oral Tablet 09/07/2020 12:00:00 AM EDT [facility] ([facility]) Acetaminophen 300 MG / Codeine Phosphate 30 MG Oral Ta blet 09/07/2020 12:00:00 AM EDT [facility] 168 HR Ethinyl Estradiol 0.77085 MG/HR / norelgestromin 0.11551 MG/HR Transdermal Patch [Xulane] 09/07/2020 12:00:00 AM EDT [facility] ([facility]) Mifepristone 200 MG Oral Tablet [Mifeprex] 09/07/2020 12:00:00 AM E DT [facility] ([facility]) 168 HR Ethinyl Estradiol 0.18271 MG/HR / norelgestromin 0.80889 MG/HR Transdermal Patch [Xulane] 05/10/2020 12:00:00 AM EST [facility] ([facility]) 168 HR Ethinyl Estradiol 0.51166 MG/HR / norelgestromin 0.93007 MG/HR Transdermal Patch [Xulane] 01/20/2020 12:00:00 AM EDT [facility] ([facility]) Trazodone Hydrochloride 50 MG Oral Tablet [facility] ([facility]) buspirone hydrochloride 10 MG Oral Tablet [facility] ([facility]) Escitalopram 10 MG Oral Tablet [Lexapro] [facility] ([facility])
== END 2021-05-02 20:46 | disposition left against medical advice (07) ==
LOC: M ED 17:34
DX: Z53.29 Procedure and treatment not carried out because of patient's decision for other reasons (principal)

== ENCOUNTER → 2021-05-02 | Outpatient (REF) | payer OTHER ==
[2021-05-02 18:56] LABS: MONO SCRN NEGATIVE (NEGATIVE)
== END ==
LOC: M LAB REF 16:57
PROVIDERS: ATTEND Physician Assistant Medical
DX: R50.9 Fever, unspecified (principal); J02.9 Acute pharyngitis, unspecified

== ENCOUNTER 2021-09-11 20:55 | Emergency (ER) | payer OTHER ==
[~2021-09-11] VITALS: Ht 165.1 cm; Wt 61.4 kg
[2021-09-11 20:57] VITALS: BP 135/86
[2021-09-11 22:52] LABS: BASO # 0.1 10^3/uL (0.0-0.2); BASO % 0.5 % (0.0-1.0); EOS # 0.2 10^3/uL (0.0-0.5); EOS % 2.5 % (0.0-3.0); HEMATOCRIT 45.7 % (36.0-47.0); HEMOGLOBIN 15.6 g/dl (12.0-15.5); LYMPH # 3.4 10^3/uL (1.5-5.0); LYMPH % 36.6 % (24.0-44.0); MEAN CORPUSCULAR HEMOGLOBIN 30.4 pg (27.0-33.0); MEAN CORPUSCULAR HGB CONC 34.1 g/dl (32.0-36.5); MEAN CORPUSCULAR VOLUME 89.1 fl (80.0-96.0); MONO # 1.1 10^3/uL (0.0-0.8); MONO % 11.6 % (2.0-8.0); NEUTROPHILS # 4.4 10^3/uL (1.5-8.5); NEUTROPHILS % 48.6 % (36.0-66.0); PLATELET COUNT, AUTOMATED 370 10^3/uL (150-450); RED BLOOD COUNT 5.13 10^6/uL (4.00-5.40); WHITE BLOOD COUNT 9.2 10^3/uL (4.0-10.0)
[2021-09-11] MEDS ORDERED: ISOVUE-370 76% 100ML VIAL As Ordered ONE (23:20)
[2021-09-12] MEDS ORDERED: AUGM500T34 PO (00:27)
== END 2021-09-12 00:52 | disposition home or self-care (01) ==
LOC: M ED 20:55
DX: H66.91 Otitis media, unspecified, right ear (principal)
CPT/HCPCS: 36415; 70487; 80047; 84702; 85025; 99283; Q9967

== ENCOUNTER → 2021-10-05 | Outpatient (CLI) | payer OTHER ==
[~2021-10-05] MED LIST changes: +AUGM500T34 PO
[2021-10-05 17:27] LABS: BASO # 0.1 10^3/uL (0.0-0.2); BASO % 0.5 % (0.0-1.0); EOS # 0.2 10^3/uL (0.0-0.5); EOS % 2.1 % (0.0-3.0); HEMATOCRIT 42.8 % (36.0-47.0); HEMOGLOBIN 14.4 g/dl (12.0-15.5); LYMPH # 3.2 10^3/uL (1.5-5.0); LYMPH % 28.3 % (24.0-44.0); MEAN CORPUSCULAR HEMOGLOBIN 30.3 pg (27.0-33.0); MEAN CORPUSCULAR HGB CONC 33.6 g/dl (32.0-36.5); MEAN CORPUSCULAR VOLUME 90.1 fl (80.0-96.0); MONO # 1.1 10^3/uL (0.0-0.8); MONO % 9.4 % (2.0-8.0); NEUTROPHILS # 6.6 10^3/uL (1.5-8.5); NEUTROPHILS % 59.4 % (36.0-66.0); PLATELET COUNT, AUTOMATED 394 10^3/uL (150-450); RED BLOOD COUNT 4.75 10^6/uL (4.00-5.40); WHITE BLOOD COUNT 11.1 10^3/uL (4.0-10.0)
[2021-10-05 17:45] LABS: ALBUMIN 3.9 GM/DL (3.2-5.2); ALT/SGPT 24 U/L (12-78); BILIRUBIN,TOTAL 0.3 MG/DL (0.2-1.0); BLOOD UREA NITROGEN 16 MG/DL (7-18); CALCIUM LEVEL 9.1 MG/DL (8.5-10.1); CARBON DIOXIDE LEVEL 27 MEQ/L (21-32); CHLORIDE LEVEL 106 MEQ/L (98-107); GLOMERULAR FILTRATION RATE > 60.0 (>60); GLUCOSE, FASTING 81 MG/DL (70-100); POTASSIUM SERUM 4.2 MEQ/L (3.5-5.1); SODIUM LEVEL 137 MEQ/L (136-145); TOTAL PROTEIN 7.3 GM/DL (6.4-8.2)
[2021-10-05 17:51] LABS: TOTAL 25(OH) VITAMIN D 20.8 NG/ML (30.0-100.0); VITAMIN B12 LEVEL 409 PG/ML (247-911)
== END ==
LOC: M PLALAB 15:43
DX: F32.A Depression, unspecified (principal); F41.9 Anxiety disorder, unspecified

== ENCOUNTER → 2021-10-25 | Outpatient (REF) | payer OTHER | LOC: M LAB REF 21:53 | PROVIDERS: ATTEND Physician Assistant Medical | DX: R52 Pain, unspecified (principal) ==

== ENCOUNTER 2021-11-04 15:47 | Emergency (ER) | payer OTHER ==
[~2021-11-04] VITALS: Ht 165.1 cm; Wt 61.4 kg
[2021-11-04 16:47] VITALS: BP 120/75
[2021-11-04] MEDS ORDERED: PARO5TAB (16:49)
[2021-11-04] MEDS ORDERED: CLON0.5T2 (16:49)
[2021-11-04] MEDS ORDERED: OLAN1TAB16 (16:49)
[2021-11-04 17:48] LABS: HEMOGLOBIN 15.2 g/dl (12.0-15.5); MEAN CORPUSCULAR HEMOGLOBIN 30.3 pg (27.0-33.0); MEAN CORPUSCULAR HGB CONC 33.8 g/dl (32.0-36.5); MEAN CORPUSCULAR VOLUME 89.8 fl (80.0-96.0); PLATELET COUNT, AUTOMATED 409 10^3/uL (150-450); RED BLOOD COUNT 5.01 10^6/uL (4.00-5.40); WHITE BLOOD COUNT 8.7 10^3/uL (4.0-10.0)
[2021-11-04 18:03] LABS: AMPHETAMINES LEVEL URINE NEGATIVE (NEGATIVE); BARBITURATES URINE NEGATIVE (NEGATIVE); BENZODIAZEPINES URINE NEGATIVE (NEGATIVE); CANNABINOIDS URINE POSITIVE (NEGATIVE); COCAINE METABOLITE URINE NEGATIVE (NEGATIVE); METHADONE URINE NEGATIVE (NEGATIVE); OPIATES URINE NEGATIVE (NEGATIVE); PHENCYCLIDINE URINE NEGATIVE (NEGATIVE)
[2021-11-04 18:11] LABS: RSV AMPLIFICATION NEGATIVE (NEGATIVE)
[2021-11-04 18:12] LABS: ACETAMINOPHEN LEVEL < 2.0 UG/ML (10.0-30.0); ALBUMIN 4.4 GM/DL (3.2-5.2); ALT/SGPT 29 U/L (12-78); BILIRUBIN,DIRECT < 0.1 MG/DL (0.0-0.2); BILIRUBIN,TOTAL 0.4 MG/DL (0.2-1.0); BLOOD UREA NITROGEN 11 MG/DL (7-18); CALCIUM LEVEL 10.2 MG/DL (8.5-10.1); CARBON DIOXIDE LEVEL 22 MEQ/L (21-32); CHLORIDE LEVEL 110 MEQ/L (98-107); CREATININE FOR GFR 0.86 MG/DL (0.55-1.30); ETHYL ALCOHOL (ETHANOL) 0.004 % (0.000-0.010); GLOMERULAR FILTRATION RATE > 60.0 (>60); GLUCOSE, FASTING 94 MG/DL (70-100); HCG, SERUM QUALITATIVE NEGATIVE (NEGATIVE); POTASSIUM SERUM 4.1 MEQ/L (3.5-5.1); SALICYLATE LEVEL < 1.7 MG/DL (5.0-30.0); SODIUM LEVEL 141 MEQ/L (136-145); THYROID STIMULATING HORMONE 0.643 uIU/ML (0.358-3.740); TOTAL PROTEIN 8.1 GM/DL (6.4-8.2)
== END 2021-11-04 19:59 | disposition home or self-care (01) ==
LOC: M ED 15:47
DX: F32.A Depression, unspecified (principal); F41.9 Anxiety disorder, unspecified; F17.200 Nicotine dependence, unspecified, uncomplicated; Z79.899 Other long term (current) drug therapy

== ENCOUNTER 2022-06-16 11:15 | Emergency (ER) | payer OTHER ==
[~2022-06-16] VITALS: Ht 165.1 cm; Wt 65.7 kg
[~2022-06-16 11:15] MED LIST changes: +CLON0.5T2; +OLAN1TAB16; +PARO5TAB
[2022-06-16 11:16] VITALS: BP 130/75
[2022-06-16] MEDS ORDERED: SERO1TAB3 PO (11:59)
== END 2022-06-16 14:12 | disposition left against medical advice (07) ==
LOC: M ED 11:15
DX: Z53.21 Procedure and treatment not carried out due to patient leaving prior to being seen by health care provider (principal)

== ENCOUNTER → 2022-08-10 | Outpatient (CLI) | payer OTHER ==
[~2022-08-10] MED LIST changes: +SERO1TAB3 PO
[2022-08-10 11:30] LABS: HEMATOCRIT 40.3 % (36.0-47.0); HEMOGLOBIN 13.2 g/dl (12.0-15.5); MEAN CORPUSCULAR HGB CONC 32.8 g/dl (32.0-36.5); MEAN CORPUSCULAR VOLUME 94.6 fl (80.0-96.0); PLATELET COUNT, AUTOMATED 324 10^3/uL (150-450); RED BLOOD COUNT 4.26 10^6/uL (4.00-5.40); WHITE BLOOD COUNT 9.2 10^3/uL (4.0-10.0)
[2022-08-10 11:32] LABS: FERRITIN 13.4 NG/ML (7.3-270.7)
[2022-08-10 11:33] LABS: THYROID STIMULATING HORMONE 1.235 uIU/ML (0.55-4.78)
== END ==
LOC: M PLALAB 08:40
PROVIDERS: ATTEND Internal Medicine Hematology
DX: F41.8 Other specified anxiety disorders (principal)

== ENCOUNTER → 2022-11-01 | Outpatient (CLI) | payer OTHER ==
[2022-11-01 19:09] LABS: HEPATITIS B SURFACE ANTIBODY POSITIVE (POSITIVE)
[2022-11-01 19:33] LABS: HIV 1&2 SCREEN NEGATIVE (NEGATIVE)
[2022-11-01 19:41] LABS: HEPATITIS B CORE ANTIBODY IGM NEGATIVE (NEGATIVE)
== END ==
LOC: M PLAIMG 16:14
PROVIDERS: ATTEND Internal Medicine Hematology
DX: M54.2 Cervicalgia (principal); Z20.2 Contact with and (suspected) exposure to infections with a predominantly sexual mode of transmission

== ENCOUNTER → 2022-11-01 | Outpatient (REF) | payer OTHER | LOC: M SFHCPLAZ 16:13 | PROVIDERS: ATTEND Internal Medicine Hematology | DX: Z20.2 Contact with and (suspected) exposure to infections with a predominantly sexual mode of transmission (principal) ==

== ENCOUNTER 2023-01-02 14:47 | Emergency (ER) | payer OTHER ==
[~2023-01-02] VITALS: Ht 165.1 cm; Wt 64.6 kg
[2023-01-02 14:47] VITALS: BP 133/80; TEMP 97.5; O2SAT 98
[2023-01-02] MEDS ORDERED: METH-1164 PO (15:48)
[2023-01-02] MEDS ORDERED: LIDO1ADH10 TP (15:51)
[2023-01-02] MEDS ORDERED: DEPO150I IM (15:51)
[2023-01-02] MEDS ORDERED: LEXA1TAB2 PO (15:51)
[2023-01-02] MEDS ORDERED: LIDOCAINE W/EPINEPHRINE 1% 20ML VIAL SC ONE (18:05)
[2023-01-02] MEDS ORDERED: BOOSTRIX VACCINE (TETANUS/DIPHTH/ACEL. PERTUSSIS) 0.5ML SYR IM ONE (18:05)
[2023-01-02] MEDS ORDERED: BACITRACIN OINTMENT 30GM TUBE TOP ONE (18:05)
[2023-01-02] MEDS ORDERED: CEPH500C PO (18:58)
== END 2023-01-02 19:18 | disposition home or self-care (01) ==
LOC: M ED 14:47
DX: S71.111A Laceration without foreign body, right thigh, initial encounter (principal); X58.XXXA Exposure to other specified factors, initial encounter; Y92.009 Unspecified place in unspecified non-institutional (private) residence as the place of occurrence of the external cause; Y93.89 Activity, other specified; Y99.8 Other external cause status; E11.9 Type 2 diabetes mellitus without complications; J45.909 Unspecified asthma, uncomplicated; K21.9 Gastro-esophageal reflux disease without esophagitis; D64.9 Anemia, unspecified; F41.9 Anxiety disorder, unspecified; F32.A Depression, unspecified; F17.200 Nicotine dependence, unspecified, uncomplicated

== ENCOUNTER → 2023-02-10 | Outpatient (CLI) | payer OTHER ==
[~2023-02-10] MED LIST changes: +CEPH500C PO; +LEXA1TAB2 PO; +LIDO1ADH10 TP; +METH-1164 PO
== END ==
LOC: M LAB 11:10 → M RAD 11:10
PROVIDERS: ATTEND Physician Assistant Medical
DX: S59.902A Unspecified injury of left elbow, initial encounter (principal); X58.XXXA Exposure to other specified factors, initial encounter; Y92.9 Unspecified place or not applicable; Y93.9 Activity, unspecified; Y99.9 Unspecified external cause status

== ENCOUNTER 2023-03-04 18:36 | Emergency (ER) | payer OTHER ==
[~2023-03-04] VITALS: Ht 165.1 cm; Wt 65.0 kg
[2023-03-04 19:54] LABS: BASO % 0.4 % (0.0-1.0); EOS # 0.1 10^3/uL (0.0-0.5); EOS % 0.6 % (0.0-3.0); HEMATOCRIT 45.6 % (36.0-47.0); HEMOGLOBIN 15.8 g/dl (12.0-15.5); LYMPH # 2.8 10^3/uL (1.5-5.0); LYMPH % 29.6 % (24.0-44.0); MEAN CORPUSCULAR HEMOGLOBIN 31.5 pg (27.0-33.0); MEAN CORPUSCULAR HGB CONC 34.6 g/dl (32.0-36.5); MEAN CORPUSCULAR VOLUME 90.8 fl (80.0-96.0); MONO # 0.9 10^3/uL (0.0-0.8); NEUTROPHILS # 5.7 10^3/uL (1.5-8.5); NEUTROPHILS % 60.1 % (36.0-66.0); PLATELET COUNT, AUTOMATED 440 10^3/uL (150-450); RED BLOOD COUNT 5.02 10^6/uL (4.00-5.40); WHITE BLOOD COUNT 9.5 10^3/uL (4.0-10.0)
[2023-03-04] MEDS ORDERED: ISOVUE-370 76% 100ML VIAL As Ordered ONE (20:10)
[2023-03-04 20:12] LABS: AMPHETAMINES LEVEL URINE NEGATIVE (NEGATIVE); BARBITURATES URINE NEGATIVE (NEGATIVE); BENZODIAZEPINES URINE NEGATIVE (NEGATIVE); COCAINE METABOLITE URINE NEGATIVE (NEGATIVE); METHADONE URINE NEGATIVE (NEGATIVE); OPIATES URINE NEGATIVE (NEGATIVE); PHENCYCLIDINE URINE NEGATIVE (NEGATIVE)
[2023-03-04 20:15] LABS: CANNABINOIDS URINE POSITIVE (NEGATIVE)
[2023-03-04 20:17] LABS: ACETAMINOPHEN LEVEL < 2.0 UG/ML (10.0-20.0); ALBUMIN 4.7 G/DL (3.2-5.2); ALKALINE PHOSPHATASE 65 U/L (46-116); ALT/SGPT 42 U/L (7.0-40); AST/SGOT 38 U/L (<34); BILIRUBIN,DIRECT < 0.1 MG/DL (<0.4); BILIRUBIN,TOTAL 0.3 MG/DL (0.3-1.2); BLOOD UREA NITROGEN 9 MG/DL (9-23); CALCIUM LEVEL 10.2 MG/DL (8.5-10.1); CARBON DIOXIDE LEVEL 21 MMOL/L (20-31); CHLORIDE LEVEL 113 MMOL/L (98-107); CREATININE FOR GFR 0.57 MG/DL (0.55-1.30); GLOMERULAR FILTRATION RATE > 60.0 (>60); GLUCOSE, FASTING 97 MG/DL (60-100); POTASSIUM SERUM 4.4 MMOL/L (3.5-5.1); SALICYLATE LEVEL < 3.0 MG/DL (<30); SODIUM LEVEL 145 MMOL/L (136-145); TOTAL PROTEIN 8.6 G/DL (5.7-8.2)
[2023-03-04 20:35] LABS: ETHYL ALCOHOL (ETHANOL) 0.359 % (0.000-0.010)
[2023-03-05 07:40] VITALS: BP 142/82; TEMP 97.9; O2SAT 98
== END 2023-03-05 07:49 | disposition home or self-care (01) ==
LOC: M ED 18:36
DX: F10.129 Alcohol abuse with intoxication, unspecified (principal); F41.9 Anxiety disorder, unspecified; F32.A Depression, unspecified; Z79.899 Other long term (current) drug therapy
CPT/HCPCS: 70450; 71260; 72125; 73030; 74177; 80047; 80048; 80076; 80143; 80307; 82077; 84443; 84702; 85025; 93041; 94760; 99285; Q9967

== ENCOUNTER 2023-03-26 00:39 | Emergency (ER) | payer OTHER ==
[~2023-03-26] VITALS: Ht 167.6 cm; Wt 73.0 kg
[~2023-03-26 00:39] MED LIST changes: -CLON0.5T2; +CLON0.5T2 PO; -OLAN1TAB16; +OLAN1TAB16 PO
[2023-03-26 01:30] LABS: HEMATOCRIT 42.3 % (36.0-47.0); HEMOGLOBIN 14.7 g/dl (12.0-15.5); MEAN CORPUSCULAR HGB CONC 34.8 g/dl (32.0-36.5); MEAN CORPUSCULAR VOLUME 89.2 fl (80.0-96.0); PLATELET COUNT, AUTOMATED 422 10^3/uL (150-450); RED BLOOD COUNT 4.74 10^6/uL (4.00-5.40); WHITE BLOOD COUNT 7.3 10^3/uL (4.0-10.0)
[2023-03-26 01:37] LABS: ETHYL ALCOHOL (ETHANOL) 0.254 % (0.000-0.010)
[2023-03-26 01:39] LABS: ALBUMIN 4.1 G/DL (3.2-5.2); ALKALINE PHOSPHATASE 65 U/L (46-116); ALT/SGPT 27 U/L (7.0-40); AST/SGOT 37 U/L (<34); BILIRUBIN,DIRECT < 0.1 MG/DL (<0.4); BILIRUBIN,TOTAL 0.2 MG/DL (0.3-1.2); BLOOD UREA NITROGEN 7 MG/DL (9-23); CARBON DIOXIDE LEVEL 17 MMOL/L (20-31); CHLORIDE LEVEL 109 MMOL/L (98-107); CREATININE FOR GFR 0.63 MG/DL (0.55-1.30); GLOMERULAR FILTRATION RATE > 60.0 (>60); GLUCOSE, FASTING 113 MG/DL (60-100); POTASSIUM SERUM 5.3 MMOL/L (3.5-5.1); SALICYLATE LEVEL < 3.0 MG/DL (<30); SODIUM LEVEL 140 MMOL/L (136-145); TOTAL PROTEIN 7.9 G/DL (5.7-8.2)
[2023-03-26 01:41] LABS: THYROID STIMULATING HORMONE 0.819 uIU/ML (0.55-4.78)
[2023-03-26 02:33] LABS: HCG, SERUM QUALITATIVE NEGATIVE (NEGATIVE)
[2023-03-26 03:09] LABS: AMPHETAMINES LEVEL URINE NEGATIVE (NEGATIVE); BARBITURATES URINE NEGATIVE (NEGATIVE); BENZODIAZEPINES URINE NEGATIVE (NEGATIVE); COCAINE METABOLITE URINE NEGATIVE (NEGATIVE); METHADONE URINE NEGATIVE (NEGATIVE); OPIATES URINE NEGATIVE (NEGATIVE); PHENCYCLIDINE URINE NEGATIVE (NEGATIVE)
[2023-03-26 03:12] LABS: CANNABINOIDS URINE POSITIVE (NEGATIVE)
[2023-03-26] MEDS ORDERED: MED REC IN PROGRESS XX SCH (09:05)
[2023-03-26] MEDS ORDERED: AMOX875T PO (09:27)
[2023-03-26] MEDS ORDERED: HOME MED LIST COMPLETE! XX SCH (09:30)
[2023-03-26] MEDS ORDERED: AMOXICILLIN 250 MG CAP PO ONE (10:15)
[2023-03-26] MEDS ORDERED: AMOXICILLIN 875 MG TAB PO ONE (10:30)
[2023-03-26 13:27] VITALS: BP 135/87; TEMP 98.1; O2SAT 99
== END 2023-03-26 13:29 | disposition home or self-care (01) ==
LOC: M ED 00:39
DX: F43.0 Acute stress reaction (principal); F10.94 Alcohol use, unspecified with alcohol-induced mood disorder; F32.A Depression, unspecified; F41.9 Anxiety disorder, unspecified; M54.9 Dorsalgia, unspecified; Z79.899 Other long term (current) drug therapy

== ENCOUNTER 2023-04-14 21:40 | Emergency (ER) | payer OTHER ==
[~2023-04-14] VITALS: Ht 167.6 cm; Wt 73.0 kg
[~2023-04-14 21:40] MED LIST changes: +AMOX875T PO
[2023-04-14 22:25] LABS: HEMOGLOBIN 14.9 g/dl (12.0-15.5); MEAN CORPUSCULAR HEMOGLOBIN 31.1 pg (27.0-33.0); MEAN CORPUSCULAR HGB CONC 34.7 g/dl (32.0-36.5); MEAN CORPUSCULAR VOLUME 89.8 fl (80.0-96.0); PLATELET COUNT, AUTOMATED 396 10^3/uL (150-450); RED BLOOD COUNT 4.79 10^6/uL (4.00-5.40); WHITE BLOOD COUNT 8.5 10^3/uL (4.0-10.0)
[2023-04-14 22:55] LABS: AMPHETAMINES LEVEL URINE NEGATIVE (NEGATIVE); BARBITURATES URINE NEGATIVE (NEGATIVE); BENZODIAZEPINES URINE NEGATIVE (NEGATIVE); COCAINE METABOLITE URINE NEGATIVE (NEGATIVE); METHADONE URINE NEGATIVE (NEGATIVE); OPIATES URINE NEGATIVE (NEGATIVE); PHENCYCLIDINE URINE NEGATIVE (NEGATIVE)
[2023-04-14 22:57] LABS: CANNABINOIDS URINE POSITIVE (NEGATIVE); ETHYL ALCOHOL (ETHANOL) 0.294 % (0.000-0.010)
[2023-04-14 22:58] LABS: SALICYLATE LEVEL < 3.0 MG/DL (<30)
[2023-04-14 22:59] LABS: ALKALINE PHOSPHATASE 65 U/L (46-116); ALT/SGPT 29 U/L (7.0-40); AST/SGOT 23 U/L (<34); BILIRUBIN,DIRECT < 0.1 MG/DL (<0.4); BILIRUBIN,TOTAL 0.2 MG/DL (0.3-1.2); BLOOD UREA NITROGEN 10 MG/DL (9-23); CALCIUM LEVEL 8.9 MG/DL (8.5-10.1); CARBON DIOXIDE LEVEL 18 MMOL/L (20-31); CHLORIDE LEVEL 113 MMOL/L (98-107); CREATININE FOR GFR 0.62 MG/DL (0.55-1.30); GLOMERULAR FILTRATION RATE > 60.0 (>60); GLUCOSE, FASTING 108 MG/DL (60-100); POTASSIUM SERUM 4.6 MMOL/L (3.5-5.1); SODIUM LEVEL 143 MMOL/L (136-145); TOTAL PROTEIN 7.8 G/DL (5.7-8.2)
[2023-04-14 23:01] LABS: THYROID STIMULATING HORMONE 0.904 uIU/ML (0.55-4.78)
[2023-04-14 23:14] LABS: HCG, SERUM QUALITATIVE NEGATIVE (NEGATIVE)
[2023-04-15 06:25] VITALS: BP 126/77; TEMP 97.7; O2SAT 99
== END 2023-04-15 09:20 | disposition home or self-care (01) ==
LOC: M ED 21:40
DX: F10.129 Alcohol abuse with intoxication, unspecified (principal); F12.10 Cannabis abuse, uncomplicated; J45.909 Unspecified asthma, uncomplicated; Z79.3 Long term (current) use of hormonal contraceptives; Z79.899 Other long term (current) drug therapy

== ENCOUNTER → 2023-06-20 | Outpatient (CLI) | payer MEDICAID, OTHER ==
[2023-06-20 17:53] LABS: ALBUMIN 4.1 G/DL (3.2-5.2); ALKALINE PHOSPHATASE 61 U/L (46-116); ALT/SGPT 42 U/L (7.0-40); AST/SGOT 28 U/L (<34); BILIRUBIN,TOTAL 0.3 MG/DL (0.3-1.2); BLOOD UREA NITROGEN 8 MG/DL (9-23); CALCIUM LEVEL 9.5 MG/DL (8.5-10.1); CARBON DIOXIDE LEVEL 25 MMOL/L (20-31); CHLORIDE LEVEL 106 MMOL/L (98-107); CREATININE FOR GFR 0.67 MG/DL (0.55-1.30); GLOMERULAR FILTRATION RATE > 60.0 (>60); GLUCOSE, FASTING 94 MG/DL (60-100); POTASSIUM SERUM 4.1 MMOL/L (3.5-5.1); SODIUM LEVEL 136 MMOL/L (136-145); TOTAL PROTEIN 7.8 G/DL (5.7-8.2)
[2023-06-20 17:55] LABS: FERRITIN 55.7 NG/ML (7.3-270.7)
[2023-06-20 17:56] LABS: BASO % 0.4 % (0.0-1.0); EOS # 0.1 10^3/uL (0.0-0.5); EOS % 0.8 % (0.0-3.0); HEMOGLOBIN 14.6 g/dl (12.0-15.5); LYMPH # 3.4 10^3/uL (1.5-5.0); LYMPH % 31.4 % (24.0-44.0); MEAN CORPUSCULAR HEMOGLOBIN 30.9 pg (27.0-33.0); MEAN CORPUSCULAR VOLUME 91.1 fl (80.0-96.0); MONO % 9.7 % (2.0-8.0); NEUTROPHILS # 6.1 10^3/uL (1.5-8.5); NEUTROPHILS % 57.4 % (36.0-66.0); PLATELET COUNT, AUTOMATED 392 10^3/uL (150-450); RED BLOOD COUNT 4.72 10^6/uL (4.00-5.40); WHITE BLOOD COUNT 10.7 10^3/uL (4.0-10.0)
[2023-06-20 18:05] LABS: INR 1.07; PROTHROMBIN TIME 13.6 SECONDS (12.5-14.5)
[2023-06-20 18:06] LABS: PARTIAL THROMBOPLASTIN TIME 26.4 SECONDS (24.8-34.2)
== END ==
LOC: M PLALAB 16:31
PROVIDERS: ATTEND Internal Medicine Hematology
DX: E61.1 Iron deficiency (principal)

== ENCOUNTER 2024-03-11 18:39 | Emergency (ER) | payer MEDICAID, OTHER ==
[~2024-03-11] VITALS: Ht 165.1 cm; Wt 61.0 kg
[2024-03-11 19:26] LABS: HEMATOCRIT 46.5 % (36.0-47.0); HEMOGLOBIN 15.1 g/dl (12.0-15.5); MEAN CORPUSCULAR HEMOGLOBIN 29.8 pg (27.0-33.0); MEAN CORPUSCULAR HGB CONC 32.5 g/dl (32.0-36.5); MEAN CORPUSCULAR VOLUME 91.7 fl (80.0-96.0); PLATELET COUNT, AUTOMATED 317 10^3/uL (150-450); RED BLOOD COUNT 5.07 10^6/uL (4.00-5.40); WHITE BLOOD COUNT 8.6 10^3/uL (4.0-10.0)
[2024-03-11 20:08] LABS: AMPHETAMINES LEVEL URINE NEGATIVE (NEGATIVE); BARBITURATES URINE NEGATIVE (NEGATIVE); BENZODIAZEPINES URINE NEGATIVE (NEGATIVE); METHADONE URINE NEGATIVE (NEGATIVE); OPIATES URINE NEGATIVE (NEGATIVE); PHENCYCLIDINE URINE NEGATIVE (NEGATIVE)
[2024-03-11 20:13] LABS: CANNABINOIDS URINE POSITIVE (NEGATIVE); COCAINE METABOLITE URINE POSITIVE (NEGATIVE)
[2024-03-11 20:14] LABS: HCG, SERUM QUALITATIVE NEGATIVE (NEGATIVE)
[2024-03-11 21:31] LABS: ETHYL ALCOHOL (ETHANOL) 0.156 % (0.000-0.010)
[2024-03-11 21:33] LABS: ALKALINE PHOSPHATASE 57 U/L (46-116); ALT/SGPT 15 U/L (7.0-40); AST/SGOT 18 U/L (<34); BILIRUBIN,DIRECT 0.2 MG/DL (<0.4); BILIRUBIN,TOTAL 0.6 MG/DL (0.3-1.2); BLOOD UREA NITROGEN 7 MG/DL (9-23); CARBON DIOXIDE LEVEL 25 MMOL/L (20-31); CHLORIDE LEVEL 106 MMOL/L (98-107); GLOMERULAR FILTRATION RATE > 60.0 (>60); GLUCOSE, FASTING 98 MG/DL (60-100); POTASSIUM SERUM 3.7 MMOL/L (3.5-5.1); SALICYLATE LEVEL < 3.0 MG/DL (<30); SODIUM LEVEL 140 MMOL/L (136-145); TOTAL PROTEIN 7.5 G/DL (5.7-8.2)
[2024-03-11 21:35] LABS: THYROID STIMULATING HORMONE 0.503 uIU/ML (0.55-4.78)
[2024-03-11] MEDS ORDERED: HOME MED LIST COMPLETE! XX SCH (22:15)
[2024-03-12 00:47] VITALS: BP 124/81; TEMP 97.6; O2SAT 99
== END 2024-03-12 00:54 | disposition home or self-care (01) ==
LOC: M ED 18:39
DX: F43.0 Acute stress reaction (principal); J45.909 Unspecified asthma, uncomplicated; F10.10 Alcohol abuse, uncomplicated; F15.10 Other stimulant abuse, uncomplicated

== ENCOUNTER 2024-06-19 11:20 | Emergency (ER) | payer MEDICAID, OTHER ==
[~2024-06-19] VITALS: Ht 165.1 cm; Wt 62.9 kg
[2024-06-19 14:03] VITALS: BP 121/72; TEMP 97.9; O2SAT 97
== END 2024-06-19 14:09 | disposition home or self-care (01) ==
LOC: M ED 11:20
DX: S20.212A Contusion of left front wall of thorax, initial encounter (principal); Z32.01 Encounter for pregnancy test, result positive; Y92.9 Unspecified place or not applicable; Y93.9 Activity, unspecified; Y99.9 Unspecified external cause status; D64.9 Anemia, unspecified; F41.9 Anxiety disorder, unspecified; F32.A Depression, unspecified; F17.290 Nicotine dependence, other tobacco product, uncomplicated; F12.10 Cannabis abuse, uncomplicated; F10.10 Alcohol abuse, uncomplicated

== ENCOUNTER 2024-06-24 12:43 | Emergency (ER) | payer OTHER ==
[~2024-06-24] VITALS: Ht 165.1 cm; Wt 63.7 kg
[2024-06-24 12:48] VITALS: BP 137/72; TEMP 97.9; O2SAT 99
[2024-06-24 14:31] LABS: KETONE, URINE AUTO RFX NEGATIVE (NEGATIVE); LEUKOCYTE ESTERASE UR AUTO RFX NEGATIVE (NEGATIVE); NITRITE, URINE AUTO RFX NEGATIVE (NEGATIVE); RBC, URINE AUTO RFX 0 /HPF (0-3); SQUAM EPITHELIAL CELL UR AURFX 1 /HPF (0-6); WBC, URINE AUTO RFX 1 /HPF (0-3)
[2024-06-24 14:48] LABS: BASO % 0.3 % (0.0-1.0); EOS # 0.2 10^3/uL (0.0-0.5); EOS % 1.6 % (0.0-3.0); HEMATOCRIT 41.5 % (36.0-47.0); HEMOGLOBIN 14.4 g/dl (12.0-15.5); LYMPH # 2.7 10^3/uL (1.5-5.0); LYMPH % 27.4 % (24.0-44.0); MEAN CORPUSCULAR HEMOGLOBIN 31.6 pg (27.0-33.0); MEAN CORPUSCULAR HGB CONC 34.7 g/dl (32.0-36.5); MEAN CORPUSCULAR VOLUME 91.2 fl (80.0-96.0); MONO # 1.4 10^3/uL (0.0-0.8); MONO % 14.8 % (2.0-8.0); NEUTROPHILS # 5.4 10^3/uL (1.5-8.5); NEUTROPHILS % 55.7 % (36.0-66.0); PLATELET COUNT, AUTOMATED 361 10^3/uL (150-450); RED BLOOD COUNT 4.55 10^6/uL (4.00-5.40); WHITE BLOOD COUNT 9.7 10^3/uL (4.0-10.0)
[2024-06-24 15:23] LABS: BLOOD UREA NITROGEN 11 MG/DL (9-23); CALCIUM LEVEL 9.5 MG/DL (8.5-10.1); CARBON DIOXIDE LEVEL 21 MMOL/L (20-31); CHLORIDE LEVEL 107 MMOL/L (98-107); GLOMERULAR FILTRATION RATE > 60.0 (>60); GLUCOSE, FASTING 91 MG/DL (60-100); HCG, SERUM QUANTITATIVE 381.2 MIU/ML (<4.2); POTASSIUM SERUM 3.9 MMOL/L (3.5-5.1); SODIUM LEVEL 143 MMOL/L (136-145)
== END 2024-06-24 17:56 | disposition left against medical advice (07) ==
LOC: M ED 12:43
DX: Z53.21 Procedure and treatment not carried out due to patient leaving prior to being seen by health care provider (principal)

== ENCOUNTER 2024-07-30 08:03 | Emergency (ER) | payer OTHER ==
[~2024-07-30] VITALS: Ht 165.1 cm; Wt 62.1 kg
[2024-07-30 08:31] VITALS: BP 138/81; TEMP 98.6; O2SAT 98
[2024-07-30] MEDS: LIDOCAINE 5% (LIDODERM) PATCH TD ONE (13:15)
[2024-07-30] MEDS: IBUPROFEN 800 MG TAB PO ONE (13:15)
[2024-07-30 13:23] LABS: BASO % 0.2 % (0.0-1.0); EOS # 0.1 10^3/uL (0.0-0.5); EOS % 0.6 % (0.0-3.0); HEMATOCRIT 41.3 % (36.0-47.0); LYMPH # 2.1 10^3/uL (1.5-5.0); MEAN CORPUSCULAR HEMOGLOBIN 31.7 pg (27.0-33.0); MEAN CORPUSCULAR HGB CONC 33.9 g/dl (32.0-36.5); MEAN CORPUSCULAR VOLUME 93.4 fl (80.0-96.0); MONO # 0.7 10^3/uL (0.0-0.8); MONO % 8.5 % (2.0-8.0); NEUTROPHILS # 5.3 10^3/uL (1.5-8.5); NEUTROPHILS % 64.3 % (36.0-66.0); PLATELET COUNT, AUTOMATED 338 10^3/uL (150-450); RED BLOOD COUNT 4.42 10^6/uL (4.00-5.40); WHITE BLOOD COUNT 8.2 10^3/uL (4.0-10.0)
[2024-07-30 13:29] LABS: ERYTHROCYTE SEDIMENTATION RATE 3 mm/hr (0-20)
[2024-07-30 13:51] LABS: BLOOD UREA NITROGEN 9 MG/DL (9-23); C REACTIVE PROTEIN QUANTITATIV < 0.50 MG/DL (<1.0); CARBON DIOXIDE LEVEL 22 MMOL/L (20-31); CHLORIDE LEVEL 111 MMOL/L (98-107); CREATININE FOR GFR 0.58 MG/DL (0.55-1.30); GLOMERULAR FILTRATION RATE > 60.0 (>60); GLUCOSE, FASTING 94 MG/DL (60-100); POTASSIUM SERUM 4.3 MMOL/L (3.5-5.1); SODIUM LEVEL 140 MMOL/L (136-145)
[2024-07-30] MEDS ORDERED: METH-1164 PO (15:07)
[2024-07-30] MEDS ORDERED: IBUP-1022 PO (15:07)
== END 2024-07-30 15:12 | disposition home or self-care (01) ==
LOC: M ED 08:03 → EDBD 08:03 → M ED 15:12
DX: M62.830 Muscle spasm of back (principal); M54.50 Low back pain, unspecified; F41.9 Anxiety disorder, unspecified; F32.A Depression, unspecified; F12.10 Cannabis abuse, uncomplicated; Z79.1 Long term (current) use of non-steroidal anti-inflammatories (NSAID); Z79.899 Other long term (current) drug therapy

== ENCOUNTER → 2024-08-01 | Outpatient (CLI) | payer OTHER ==
[~2024-08-01] MED LIST changes: +IBUP-1022 PO; +PROHANCE 279.3MG/ML 15ML VIAL As Ordered ONE
== END ==
LOC: M RAD 12:50
PROVIDERS: ATTEND Nurse Practitioner Family
DX: S42.302A Unspecified fracture of shaft of humerus, left arm, initial encounter for closed fracture (principal); W18.30XA Fall on same level, unspecified, initial encounter; Y92.009 Unspecified place in unspecified non-institutional (private) residence as the place of occurrence of the external cause
CPT/HCPCS: 73223; A9576

== ENCOUNTER → 2024-12-31 | Outpatient (REF) | payer OTHER ==
[~2024-12-31] MED LIST changes: -PROHANCE 279.3MG/ML 15ML VIAL As Ordered ONE
== END ==
LOC: M SFHCPLAZ 13:48
PROVIDERS: ATTEND Nurse Practitioner Family
DX: Z53.9 Procedure and treatment not carried out, unspecified reason (principal)

== ENCOUNTER → 2025-03-06 | Outpatient (REF) | payer OTHER ==
[~2025-03-06] MED LIST changes: -IBUP-1022 PO; +IBUP600T42 PO
[2025-03-06 18:03] LABS: APPEARANCE, URINE HAZY (CLEAR); BACTERIA, URINE AUTO 1+ (NEGATIVE); BILIRUBIN, URINE AUTO NEGATIVE (NEGATIVE); BLOOD, URINE BLOOD NEGATIVE (NEGATIVE); GLUCOSE, URINE (UA) AUTO NEGATIVE (NEGATIVE); KETONE, URINE AUTO TRACE mg/dL (NEGATIVE); LEUKOCYTE ESTERASE, URINE AUTO NEGATIVE (NEGATIVE); MUCUS, URINE SMALL (NEGATIVE); NITRITE, URINE AUTO NEGATIVE (NEGATIVE); PROTEIN, URINE AUTO NEGATIVE (NEGATIVE); RBC, URINE AUTO 2 /HPF (0-3); SPECIFIC GRAVITY URINE AUTO 1.018 (1.002-1.035); SQUAMOUS EPITHELIAL CELL UR AU 8 /HPF (0-6); UROBILINOGEN, URINE AUTO 2.0 mg/dL (0.0-2.0); WBC, URINE AUTO 4 /HPF (0-3)
[2025-03-06 19:22] LABS: GC DNA AMPLIFICATION NEGATIVE (NEGATIVE)
[2025-03-06 20:05] LABS: Trichomonas vaginalis (AMP) NOT DETECTED (NEGATIVE)
== END ==
LOC: M LAB REF 17:15
PROVIDERS: ATTEND Physician Assistant
DX: N39.0 Urinary tract infection, site not specified (principal); Z20.2 Contact with and (suspected) exposure to infections with a predominantly sexual mode of transmission

== ENCOUNTER → 2025-03-09 | Outpatient (CLI) | payer OTHER ==
[~2025-03-09] MED LIST changes: +E-Z-GAS II EFFERVESCENT PACKET (SODIUM BICARB./CITRIC ACID/SIMETHICONE) As Ordered ONE; +E-Z-HD 98% w/w 340 GM SUSP BTL As Ordered ONE; +E-Z-PAQUE 96% w/w SUSP 176 GM BTL As Ordered ONE
[2025-03-09 10:26] LABS: PLATELET COUNT, AUTOMATED 344 10^3/uL (150-450)
[2025-03-09 10:41] LABS: TOTAL 25(OH) VITAMIN D 24.0 NG/ML (20.0-100.0)
[2025-03-09 10:42] LABS: VITAMIN B12 LEVEL 442 PG/ML (211-911)
[2025-03-09 10:44] LABS: ALT/SGPT 13 U/L (7.0-40); AST/SGOT 13 U/L (<34); CALCIUM LEVEL 9.0 MG/DL (8.5-10.1); CARBON DIOXIDE LEVEL 24 MMOL/L (20-31); CHLORIDE LEVEL 109 MMOL/L (98-107); CREATININE FOR GFR 0.67 MG/DL (0.55-1.30); GLOMERULAR FILTRATION RATE > 90.0 (>60); IRON (FE) 93 UG/DL (50-170); MAGNESIUM LEVEL 1.8 MG/DL (1.8-2.4); PERCENT SATURATION 32.0 % (13.2-45.0); POTASSIUM SERUM 4.2 MMOL/L (3.5-5.1); SODIUM LEVEL 142 MMOL/L (136-145)
== END ==
LOC: M RAD 09:13
PROVIDERS: ATTEND Nurse Practitioner Family
DX: R10.13 Epigastric pain (principal); R42 Dizziness and giddiness

== ENCOUNTER → 2025-04-17 | Outpatient (CLI) | payer OTHER ==
[~2025-04-17] MED LIST changes: -E-Z-GAS II EFFERVESCENT PACKET (SODIUM BICARB./CITRIC ACID/SIMETHICONE) As Ordered ONE; -E-Z-HD 98% w/w 340 GM SUSP BTL As Ordered ONE; -E-Z-PAQUE 96% w/w SUSP 176 GM BTL As Ordered ONE
== END ==
LOC: M PLALAB 16:12
PROVIDERS: ATTEND Family Medicine
DX: M54.2 Cervicalgia (principal)